=== PATIENT | male | born 1970 | race Caucasian/White ===

== ENCOUNTER 2022-03-04 18:41 | Emergency (ER) | payer MEDICAID, SELFPAY ==
[2022-03-04 18:44] VITALS: BMI 34.0
[2022-03-04 18:45] VITALS: BP 143/95; PULSE 110; RESP 16; TEMP 36.8; O2SAT 94; BMI 34.0
--- NOTE | 2022-03-04 18:48 | ECG_ITS ---
Test Reason : PALPITATION Blood Pressure : / mmHG Vent. Rate : 116 BPM Atrial Rate : 116 BPM P-R Int : 164 ms QRS Dur : 096 ms QT Int : 328 ms P-R-T Axes : 072 022 046 degrees QTc Int : 455 ms Sinus tachycardia Otherwise normal ECG When compared with ECG of 21-SEP-2017 07:24, Vent. rate has increased BY 47 BPM Referred By: Generic ED Physician Electronically Signed By:MALENA BOSE
== END 2022-03-04 20:25 | disposition left against medical advice (07) ==
PROVIDERS: Emergency Provider Emergency Medicine
DX: R00.2 Palpitations (principal); R20.2 Paresthesia of skin; F11.90 Opioid use, unspecified, uncomplicated; F14.10 Cocaine abuse, uncomplicated; F43.10 Post-traumatic stress disorder, unspecified; F32.A Depression, unspecified
CPT/HCPCS: 93005; 99281; 99283

== ENCOUNTER 2022-03-05 01:42 | Inpatient (IN) | payer OTHER, SELFPAY ==
--- NOTE | 2022-03-05 | ECG_ITS ---
Test Reason : medical clearance Blood Pressure : / mmHG Vent. Rate : 081 BPM Atrial Rate : 081 BPM P-R Int : 180 ms QRS Dur : 094 ms QT Int : 388 ms P-R-T Axes : 011 061 024 degrees QTc Int : 450 ms Normal sinus rhythm Normal ECG When compared with ECG of 04-MAR-2022 18:52, Heart rate has decreased Referred By: Floridalma Kenny Electronically Signed By:MALENA BOSE
--- NOTE | ~2022-03-05 | US_ITS ---
EXAMINATION: US ABDOMEN COMPLETE CLINICAL INFORMATION: Elevated LFTs. COMPARISON: None TECHNIQUE: Real-time imaging of the abdominal viscera. FINDINGS: PANCREAS: Not well visualized. ABDOMINAL AORTA: Not well visualized. INFERIOR VENA CAVA: Not well visualized. LIVER: Liver echotexture is slightly increased. The liver contour is normal. No focal hepatic lesion. There is no intrahepatic biliary duct dilatation seen. GALLBLADDER: There are gallstones in the gallbladder. The gallbladder is normal in size. The gallbladder wall is normal. There is no pericholecystic fluid. COMMON BILE DUCT: Normal in caliber measuring 0.3 cm in diameter. RIGHT KIDNEY: There is a small cyst in the midpole measuring 6 x 4 x 5 mm. No hydronephrosis. No renal calculi or focal parenchymal lesions. The kidney measures 11.3 cm in maximum dimension. LEFT KIDNEY: Normal. No hydronephrosis. No renal calculi or focal parenchymal lesions. The kidney measures 10.4 cm in maximum dimension. SPLEEN: Normal. The spleen measures 8.5 cm in maximum dimension. FREE FLUID: None. US/US abdomen complete IMPRESSION: Slightly echogenic liver probably representing fatty infiltration. Gallstones. No evidence of cholecystitis. Small right renal cyst. Limited visualization of the pancreas, aorta and IVC.
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
[2022-03-05 02:17] VITALS: BP 137/99; PULSE 108; RESP 18; TEMP 37; O2SAT 93; BMI 34.0
[2022-03-05 02:38] LABS: MANUAL DIFF FLAG NO
[2022-03-05 02:39] LABS: Basophils Absolute Auto 0.1 X10*3/uL (0.0-0.2); Basophils Percent Auto 0.4 % (0-2); Eosinophils Absolute Auto 0.2 X10*3/uL (0.0-0.4); Eosinophils Percent Auto 1.2 % (0-4); Hematocrit 44.4 % (42.0-52.0); Hemoglobin 15.2 g/dl (14.0-18.0); Imm Gran Abs Auto 0.07 X10*3/uL (0.00-0.03); Imm Gran Pct Auto 0.6 % (0.0-0.4); Lymphocytes Absolute Auto 3.9 X10*3/uL (1.2-4.9); Mean Corpuscular HGB Conc 34.2 g/dl (31.0-36.0); Mean Corpuscular Volume 81.9 fL (80.0-98.0); Mean Platelet Volume 11.2 fL (9.4-12.4); Monocytes Absolute Auto 1.1 X10*3/uL (0.1-1.2); Monocytes Percent Auto 8.6 % (2-11); Neutrophils Absolute Auto 7.4 x10*3/uL (2.0-8.3); Neutrophils Percent Auto 58.2 % (45-73); Platelet Count 275 X10*3/uL (160-400); Red Blood Count 5.42 X10*6/uL (4.60-5.80); Red Cell Distribution Width 14.3 % (11.0-16.0); White Blood Count 12.7 X10*3/uL (4.8-10.8)
[2022-03-05 02:54] LABS: COVID-19 Test Negative (Negative)
[2022-03-05 02:59] LABS: Alanine Aminotransferase 47 U/L (0-40); Alkaline Phosphatase 99 U/L (39-117); Anion Gap 18 (12-20); Aspartate Amino Transferase 137 U/L (5-37); Bilirubin Direct 0.5 mg/dL (0.0-0.5); Bilirubin Total 1.5 mg/dL (0.0-1.0); Blood Urea Nitrogen 24 mg/dL (9-16); Calcium 9.9 mg/dL (8.4-10.2); Carbon Dioxide 22 mmol/L (22-29); Chloride 105 mmol/L (96-108); Creatinine Clr Calc Pharmacy 68.7; Estimated Glomerular Filt Rate 48; Ethanol < 10 mg/dL; Glucose Random 116 mg/dL (60-115); Potassium 4.3 mmol/L (3.3-5.1); Sodium 141 mmol/L (135-145); Total Protein 8.4 g/dL (6.5-8.0)
--- NOTE | 2022-03-05 03:21 | PC.NURSE ---
ALLY[facility] referral completed/confirmed/pending eta, patient is section 12 by the provider, patient has lots of concerns about his medication, [facility] office called/spoke with Terrance from medical/faxed information release paper work/they faxed us patient's medication list, med rec completed/approved by provider, med list faxed to our pharmacy, patient is currently in chair resting quietly, will continue to monitor.
--- NOTE | 2022-03-05 07:23 | PHA.MEDREC ---
Pharmacy Consult ? Medication Reconciliation Pharmacy has REVIEWED the medication reconciliation done by Mitch. Pharmacy also received the list of medications from the patients facility.
[2022-03-05] MEDS: Omeprazole 20 MG CAPSULE.DR PO (09:17)
[2022-03-05] MEDS: DULoxetine HCl 30 MG CAPSULE.DR PO (09:17)
[2022-03-05] MEDS: Acetaminophen 325 MG TABLET 650 MG PO (14:41)
[2022-03-05 18:14] LABS: Appearance Urine Clear; Color Urine Yellow; Glucose Urine UA Negative (Negative); Leukocyte Esterase Urine Trace (Negative); Nitrite Urine Negative (Negative); Specific Gravity - Urine >= 1.030 (1.005-1.025); UMIC TRIGGER UA YES; Urine Blood Negative (Negative); Urine Ketones Trace mg/dL (Negative); Urine Protein 30 (1+) mg/dL (Neg-Trace)
[2022-03-05 18:31] LABS: Amphetamine Screen Urine Not Detected (Not Detect); Barbiturates, Urine Not Detected (Not Detect); Benzodiazepines Screen Urine Not Detected (Not Detect); Cannabinoid Screen Urine Not Detected (Not Detect); Cocaine Screen Urine Not Detected (Not Detect); Fentanyl, urine Not Detected (Not Detect); Opiate Screen Urine Not Detected (Not Detect); Phencyclidine Screen Urine Not Detected (Not Detect)
[2022-03-05 18:42] LABS: Bacteria Urine Trace (None Seen); Calcium Oxalate Crystals Urine Present; Hyaline Casts Urine 0-2 /LPF (0-2); RBC Urine 0-2 /HPF (0-2); WBC Urine 0-5 /HPF (0-5)
[2022-03-05] MEDS: DULoxetine HCl 60 MG CAPSULE.DR PO (20:32)
[2022-03-05] MEDS: Mirtazapine 15 MG TABLET 45 MG PO (20:32)
[2022-03-05] MEDS: Atorvastatin Calcium 20 MG TABLET PO (20:36)
[2022-03-05 22:50] VITALS: BP 132/91; PULSE 87; RESP 16; TEMP 36.3; O2SAT 94
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
[2022-03-06 06:00] VITALS: BP 140/70; PULSE 87; RESP 18; TEMP 35; O2SAT 95
[2022-03-06 09:09] LABS: Estimated Average Glucose 111 mg/dL; Hemoglobin A1c % 5.5 %
[2022-03-06 09:26] LABS: Alanine Aminotransferase 50 U/L (0-40); Alkaline Phosphatase 97 U/L (39-117); Anion Gap 16 (12-20); Aspartate Amino Transferase 109 U/L (5-37); Bilirubin Total 0.5 mg/dL (0.0-1.0); Blood Urea Nitrogen 17 mg/dL (9-16); Carbon Dioxide 22 mmol/L (22-29); Chloride 106 mmol/L (96-108); Cholesterol 147 mg/dL; Creatinine Clr Calc Pharmacy 97.3; Estimated Glomerular Filt Rate > 60; Glucose Fasting 117 mg/dL (60-99); HDL Cholesterol 28 mg/dL; LDL Cholesterol Calculated 76 mg/dl; Potassium 4.3 mmol/L (3.3-5.1); Sodium 140 mmol/L (135-145); Triglycerides 216 mg/dL
[2022-03-06 09:42] LABS: Free T4 (Free Thyroxine) 0.98 ng/dL (0.71-1.85); Thyroid Stimulating Hormone 1.23 uIU/mL (0.32-4.0)
[2022-03-06 10:02] LABS: Folate 18.9 ng/mL (> or = 4.0); Vitamin B12 334 pg/mL (200-900)
[2022-03-06] MEDS: lisinopriL 10 MG TABLET PO (10:04)
[2022-03-06] MEDS: DULoxetine HCl 30 MG CAPSULE.DR PO (10:04)
[2022-03-06] MEDS: Omeprazole 20 MG CAPSULE.DR PO (10:04)
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
[2022-03-06 20:30] VITALS: BP 132/81; PULSE 101; RESP 18; TEMP 36.3; O2SAT 95
[2022-03-06] MEDS: Atorvastatin Calcium 20 MG TABLET PO (20:32)
[2022-03-06] MEDS: traZODone HCL 50 MG TABLET PO (20:32)
[2022-03-06] MEDS: Mirtazapine 15 MG TABLET 45 MG PO (20:32)
[2022-03-07 09:00] VITALS: BP 130/75; PULSE 75; RESP 18; TEMP 36.4; O2SAT 95
[2022-03-07] MEDS: FLUoxetine HCl 20 MG CAPSULE PO (09:12)
[2022-03-07] MEDS: lisinopriL 10 MG TABLET PO (09:12)
[2022-03-07] MEDS: Omeprazole 20 MG CAPSULE.DR PO (09:12)
--- NOTE | 2022-03-07 15:43 | MHC.RECOVRN ---
Met with pt in 324 after consult placed to Addiction Medicine. Pt reports being released 2 days ago after being in senior living for 9 months. Prior to senior living, pt reports using heroin and cocaine, [place]. Pt reports approx 1.5-2 bundles heroin daily. Did use a few times while in senior living. Pt reports first use age [age]. Pt has been to [facility] x 3 as well as many psych admissions where detox was completed, as well. Pt denies hx Suboxone, has only utilized methadone while in [facility]. Pt acknowledges UDS negative at this time, states I really want to do the right thing out there. I want to be there for my kids and my grandkids. Pt reports opioid cravings and would like to initiate Suboxone while inpatient to avoiding returning to use. Discussed with Brigitte Walker APRN.
[2022-03-07 18:00] VITALS: BP 137/74; PULSE 90; RESP 18; TEMP 36.7; O2SAT 94
--- NOTE | 2022-03-07 18:03 | HO.PSYCHPN ---
Subjective Subjective Date of Service: 03/07/22 Reason For Visit: Depression suicidal ideation Interim History: I spoke with pt this evening. Pt is adamant that he wants to feel stable and continues to advocate for medication that will help curb urges to relapse, says I dont wanna go through this no more, does not want to return to his life of relapsing, ripping and running, incarceration. Says he has not noticed a difference on prozac, denies withdrawal from cymbalta. Pt is asking to re-trial wellbutrin, was on this in the past for depression and pt says he believes he has ADHD, wants something to help with this. He does not want to be on controlled substances. Also asking to be put back on gabapentin, reports past benefit for nerve pain. Denies issues with sleep. Denies SI, says he feels safe. Medication Compliance: Yes Side effects from medications: No Attending Groups: Yes Review of Systems Acute medical concerns: No Medical Review of Systems: unchanged Mental Status Exam Mental Status Exam Narrative: Patient Appearance: Well Grooomed Patient Orientation: Person, Place, Time and Situation Level of Consciousness: Awake and Appropriate Patient Behavior: Appropriate and Good Eye Contact Mood Description: Depressed Affect Description: Depressed Patient Cognition Impaired: No Ability to Follow Directions: Excellent Speech Pattern: Clear and Soft-Spoken Memory Description: Intact Hallucinations: None Delusions: Not Present Thought Process: Intact Thought Content: positive for Goal Oriented Depressive Symptoms: Increased Anxiety, Feelings of Worthlessness, Hopelessness, Feelings of Guilt, Low Self Esteem and Difficulty Concentrating Judgement: Good Diagnostics Vital Signs (24Hr): Vital Signs - 24 hr 03/06/22 20:30 03/07/22 09:00 Temperature 97.4 F 97.5 F Pulse Rate 101 H 75 Respiratory Rate 18 18 Blood Pressure 132/81 130/75 Pulse Oximetry 95 95 Oxygen Delivery Method Room Air Room Air BMI result Body Mass Index 34.0 Labs Results: 03/05/22 02:32 03/06/22 08:35 Labs: Laboratory Results - last 48 hr 03/05/22 03/05/22 03/06/22 18:03 18:03 08:35 Sodium 140 Potassium 4.3 Chloride 106 Carbon Dioxide 22 Anion Gap 16 BUN 17 H Creatinine 1.08 Estim Creat Clear Calc 97.3 Estimated GFR > 60 Fasting Glucose 117 H Estimat Average Glucose Hemoglobin A1c % Calcium 9.0 D Total Bilirubin 0.5 AST 109 H ALT 50 H Alkaline Phosphatase 97 Total Protein 7.0 Albumin 4.0 Triglycerides 216 Cholesterol 147 LDL Cholesterol, Calc 76 HDL Cholesterol 28 Vitamin B12 Folate TSH 1.23 Free T4 0.98 Urine Color Yellow Urine Appearance Clear Urine pH 6.0 Ur Specific [place] >= 1.030 H Urine Protein 30 (1+) H Urine Glucose (UA) Negative Urine Ketones Trace Urine Blood Negative Urine Nitrite Negative Ur Leukocyte Esterase Trace H Urine RBC 0-2 Urine WBC 0-5 Ur Squamous Epith Cells 3-5 Calcium Oxalate Crystal Present Urine Bacteria Trace Hyaline Casts 0-2 Urine Opiates Screen Not Detected Urine Fentanyl Screen Not Detected Ur Barbiturates Screen Not Detected Ur Phencyclidine Scrn Not Detected Ur Amphetamines Screen Not Detected U Benzodiazepines Scrn Not Detected Urine Cocaine Screen Not Detected U Marijuana (THC) Screen Not Detected 03/06/22 03/06/22 08:35 08:35 Sodium Potassium Chloride Carbon Dioxide Anion Gap BUN Creatinine Estim Creat Clear Calc Estimated GFR Fasting Glucose Estimat Average Glucose 111 Hemoglobin A1c % 5.5 Calcium Total Bilirubin AST ALT Alkaline Phosphatase Total Protein Albumin Triglycerides Cholesterol LDL Cholesterol, Calc HDL Cholesterol Vitamin B12 334 Folate 18.9 TSH Free T4 Urine Color Urine Appearance Urine pH Ur Specific [place] Urine Protein Urine Glucose (UA) Urine Ketones Urine Blood Urine Nitrite Ur Leukocyte Esterase Urine RBC Urine WBC Ur Squamous Epith Cells Calcium Oxalate Crystal Urine Bacteria Hyaline Casts Urine Opiates Screen Urine Fentanyl Screen Ur Barbiturates Screen Ur Phencyclidine Scrn Ur Amphetamines Screen U Benzodiazepines Scrn Urine Cocaine Screen U Marijuana (THC) Screen Medications Medications Current Medications Acetaminophen (Acetaminophen 325 Mg Tablet) 650 mg PO Q6H PRN PRN Reason: Headache/Pain Mild Scale (1-3) Al Hydroxide/Mg Hydroxide (Magnesium Hydrox/Alum Hydrox 30 Ml Oral.Susp) 30 ml PO Q6H PRN PRN Reason: Heartburn/Nausea Atorvastatin Calcium (Atorvastatin Calcium 20 Mg Tablet) 20 mg PO BEDTIME [facility] Last Admin: 03/06/22 20:32 Dose: 20 mg Docusate Sodium (Docusate Sodium 100 Mg Capsule) 100 mg PO BEDTIME [facility] Last Admin: 03/06/22 20:33 Dose: Not Given Fluoxetine HCl (Fluoxetine Hcl 20 Mg Capsule) 20 mg PO DAILY [facility] Last Admin: 03/07/22 09:12 Dose: 20 mg Hydroxyzine HCl (Hydroxyzine Hcl 25 Mg Tablet) 25 mg PO Q6H PRN PRN Reason: Anxiety Lisinopril (Lisinopril 10 Mg Tablet) 10 mg PO DAILY [facility]; Protocol Last Admin: 03/07/22 09:12 Dose: 10 mg Magnesium Hydroxide (Milk Of Magnesia 30 Ml Oral.Susp) 30 ml PO DAILY PRN PRN Reason: Constipation Mirtazapine (Mirtazapine 15 Mg Tablet) 45 mg PO BEDTIME [facility] Last Admin: 03/06/22 20:32 Dose: 45 mg Nicotine Polacrilex (Nicotine Polacrilex 2 Mg Gum) 2 mg BUCCAL Q2H PRN PRN Reason: Nicotine Cravings Omeprazole (Omeprazole 20 Mg Capsule.Dr) 20 mg PO DAILY [facility] Last Admin: 03/07/22 09:12 Dose: 20 mg Trazodone HCl (Trazodone Hcl 50 Mg Tablet) 50 mg PO BEDTIME PRN PRN Reason: Insomnia Last Admin: 03/06/22 20:32 Dose: 50 mg Allergies Allergies Allergy/AdvReac Type Severity Reaction Status Date / Time No Known Allergies Allergy Verified 03/05/22 02:17 [No Known Allergies*] Assessment & Plan Assessment & Plan (1) MDD (major depressive disorder), recurrent episode, moderate: Status: Acute Code(s): F33.1 - Major depressive disorder, recurrent, moderate (2) Post traumatic stress disorder (PTSD): Status: Acute Code(s): F43.10 - Post-traumatic stress disorder, unspecified (3) Cocaine use disorder: Status: Acute Code(s): F14.10 - Cocaine abuse, uncomplicated (4) Opioid use disorder: Status: Acute Code(s): F11.90 - Opioid use, unspecified, uncomplicated Plan Lavell is a 52-year-old male with a history of depression, cocaine use and trauma. Patient reports increased depression and suicidal ideation because he is unable to get his medications, misunderstandings with his children?s mother and lack of a prescriber. Patient had not taken medications in 2 days prior to coming to the hospital. He came out of skilled nursing 2 days ago where he had been for 1 years. Patient has a history of multiple psychiatric admissions and suicide attempts.? Plan: 03/06: placed Addiction consult, as pt is requesting to be started on suboxone due to hx of opiate abuse and active urges to use. Discontinue Cymbalta due to pt not liking the withdrawal effects when he was unable to obtain refills. Start Prozac 20 mg daily for sx of depression, anxiety, and trauma, as pt reports past benefit on this med. Continue mirtazapine 45 mg bedtime for sleep, anxiety, and depression 03/07: restart wellbutrin XL 150 mg QAM for depression, inattention, impulsivity. restart gabapentin at 100 mg TID PRN for nerve pain. I spent minutes with the patient and/or on the patient floor today, greater than?50% of which was spent counseling/coordinating care. Patient educated on: diagnosis, medication risk/benefits and therapeutic strategies Reason for contiued inpatient stay Substantial Risk for: med/psych decompensation
[2022-03-07] MEDS: Mirtazapine 15 MG TABLET 45 MG PO (20:58)
[2022-03-07] MEDS: Docusate Sodium 100 MG CAPSULE PO (20:58)
[2022-03-07] MEDS: Atorvastatin Calcium 20 MG TABLET PO (20:58)
[2022-03-07] MEDS: hydrOXYzine HCL 25 MG TABLET PO (21:00)
[2022-03-07] MEDS: traZODone HCL 50 MG TABLET PO (21:01)
[2022-03-08] MEDS: traZODone HCL 50 MG TABLET PO (01:15)
[2022-03-08] MEDS: FLUoxetine HCl 20 MG CAPSULE PO (09:32)
[2022-03-08] MEDS: Omeprazole 20 MG CAPSULE.DR PO (09:32)
[2022-03-08] MEDS: buPROPion HCl XL 150 MG TAB.ER.24H PO (09:32)
[2022-03-08] MEDS: lisinopriL 10 MG TABLET PO (09:32)
[2022-03-08 09:39] VITALS: BP 115/70; PULSE 100; RESP 16; TEMP 36.6; O2SAT 95
--- NOTE | 2022-03-08 14:02 | HO.ADDICT_ITS ---
History of Present Illness Date of Service: 03/08/2022 Chief Complaint: Depression suicidal ideation Reason for Consult: requesting to start MOUD Requesting physician: Lavinia Skinner HPI Narrative: Patient is a 52 year old male with history of LOU, including opioid use disorder, currently admitted to unit with worsening depression. Patient reports he was recently released (earlier this week) from incarceration and, while he has been abstinent from opioids for almost a year, is concerned about recurrence-therefore, consult requested. Patient seen on M3, pleasant and engaged in interview. Reporting that prior to incarceration he was using 1-2 bundles of heroin daily IN. Denies any history of outpatient treatment for OUD. Denies any treatment of MOUD. Has only been on methadone during ATS (detox) admission Reports history of alcohol use--mainly on the weekends, however, usually to excess. Reviewed treatments for OUD, including suboxone, methadone and naltrexone. Reviewed dosing, mechanism of action, possible side effects, and usual outpatient treatment programming. Patient asking appropriate questions. Expressed desire to trial suboxone. Forthcoming about concerns of recurrence and goals of maintaining sustained recovery. Past Psychiatric History: -Hx of multiple inpatient admissions, last 2018 at [facility] -Past med trials: seroquel (increased appetite), wellbutrin (doesnt remember), prozac (helpful, unable to recall why it was stopped) Review of Systems Constitutional: Reports as per HPI and Reports no additional constitutional complaints Diagnostics Vital Signs (24Hr): Vital Signs - 24 hr 03/07/22 18:00 03/08/22 09:39 Temperature 98.1 F 97.9 F Pulse Rate 90 100 Respiratory Rate 18 16 Blood Pressure 137/74 115/70 Pulse Oximetry 94 95 Oxygen Delivery Method Room Air Room Air BMI result Body Mass Index 34.0 Labs Results: 03/05/22 02:32 03/06/22 08:35 Mental Status Exam Mental Status Exam Patient Appearance: Well Grooomed and Appropriate Level of Consciousness: Awake and Appropriate Patient Behavior: Appropriate and Cooperative Mood Description: Calm Affect Description: Calm Patient Cognition Impaired: No Ability to Follow Directions: Excellent Speech Pattern: Clear Thought Process: Intact and Goal Oriented Judgement: Good Medications Medications Current Medications Acetaminophen (Acetaminophen 325 Mg Tablet) 650 mg PO Q6H PRN PRN Reason: Headache/Pain Mild Scale (1-3) Al Hydroxide/Mg Hydroxide (Magnesium Hydrox/Alum Hydrox 30 Ml Oral.Susp) 30 ml PO Q6H PRN PRN Reason: Heartburn/Nausea Atorvastatin Calcium (Atorvastatin Calcium 20 Mg Tablet) 20 mg PO BEDTIME [facility] Last Admin: 03/07/22 20:58 Dose: 20 mg Buprenorphine/Naloxone (Buprenorphine/Naloxone 2/0.5mg Film) 1 film SUBLINGUAL DAILY [facility] Last Admin: 03/08/22 12:16 Dose: Not Given Bupropion HCl (Bupropion Hcl Xl 150 Mg Tab.Er.24h) 150 mg PO DAILY [facility] Last Admin: 03/08/22 09:32 Dose: 150 mg Docusate Sodium (Docusate Sodium 100 Mg Capsule) 100 mg PO BEDTIME [facility] Last Admin: 03/07/22 20:58 Dose: 100 mg Fluoxetine HCl (Fluoxetine Hcl 20 Mg Capsule) 20 mg PO DAILY [facility] Last Admin: 03/08/22 09:32 Dose: 20 mg Gabapentin (Gabapentin 100 Mg Capsule) 100 mg PO TID PRN PRN Reason: nerve pain, anxiety Hydroxyzine HCl (Hydroxyzine Hcl 25 Mg Tablet) 25 mg PO Q6H PRN PRN Reason: Anxiety Last Admin: 03/07/22 21:00 Dose: 25 mg Lisinopril (Lisinopril 10 Mg Tablet) 10 mg PO DAILY [facility]; Protocol Last Admin: 03/08/22 09:32 Dose: 10 mg Magnesium Hydroxide (Milk Of Magnesia 30 Ml Oral.Susp) 30 ml PO DAILY PRN PRN Reason: Constipation Mirtazapine (Mirtazapine 15 Mg Tablet) 45 mg PO BEDTIME [facility] Last Admin: 03/07/22 20:58 Dose: 45 mg Nicotine Polacrilex (Nicotine Polacrilex 2 Mg Gum) 2 mg BUCCAL Q2H PRN PRN Reason: Nicotine Cravings Omeprazole (Omeprazole 20 Mg Capsule.Dr) 20 mg PO DAILY [facility] Last Admin: 03/08/22 09:32 Dose: 20 mg Trazodone HCl (Trazodone Hcl 50 Mg Tablet) 50 mg PO BEDTIME PRN PRN Reason: Insomnia Last Admin: 03/08/22 01:15 Dose: 50 mg Allergies Allergies Allergy/AdvReac Type Severity Reaction Status Date / Time No Known Allergies Allergy Verified 03/05/22 02:17 [No Known Allergies*] Assessment & Plan Assessment & Plan (1) Opioid use disorder: Status: Acute Code(s): F11.90 - Opioid use, unspecified, uncomplicated Assessment and Plan: * 2mg daily to start * case disussed with RN on BH unit and attending psychiatric provider * based on history HIV, Hepatitis panel * will continue to follow (2) MDD (major depressive disorder), recurrent episode, moderate: Status: Acute Code(s): F33.1 - Major depressive disorder, recurrent, moderate I spent ____45__ minutes with the patient and/or on the patient floor today, greater than?50% of which was spent counseling/coordinating care. PMF Past Medical History Medical History Cocaine abuse Depression PTSD (post-traumatic stress disorder) Social History Social History Household Members: Significant Other Housing: Apartment Do you presently have visiting nurse or other home services: No Patient Tobacco Use Status: Former Tobacco user Smoked in Last 30 Days: No Patient Interested in Nicotine Replacement: No Patient Given Instructions on How to Stop Smoking: No Use of substances other than those prescribed or required for medical reasons: No Currently Displaying Signs/Symptoms of Drug Intoxication Withdrawal: No Any prior treatment program specific to substance use: No Have you been hit, kicked, punched, or otherwise hurt by someone within the past year? If so, by whom?: No Do you feel safe in your current relationship?: Yes Is there a partner from a previous relationship who is making you feel unsafe now?: No Are you made to feel afraid or neglected: No Spiritual Healthcare Practices: None Orthodox Healthcare Practices: [facility] Cultural Healthcare Practices: None Advance Directives: No Advance Directives Information Provided: No Healthcare Proxy: No Guardian: No Do you have thoughts of harming others: None Do you have a plan to hurt others: No Plan Recently lost weight without trying: No Eating poorly because of decreased appetite: No Nutrition Risks: No Nutritional Risk Poor oral hygiene: No service: No Sexual orientation: Straight/Heterosexual
--- NOTE | 2022-03-08 16:19 | HO.PSYCHPN ---
Subjective Subjective Date of Service: 03/08/22 Reason For Visit: Depression suicidal ideation Subjective Notes: Conditional Voluntary Interim History: Pt reports after he was discharged from correction feeling very restless, anxious, hypervigilant at home. He currently denies SI/HI. He reports feeling calmer. He met with addition specialist and agrees to start suboxone as relapsed prevention. He reports restless sleep- asks for seroquel low dose as it has worked for him in the past. No behavioral concerns. Review of Systems Constitutional: Reports as per HPI and Reports no additional constitutional complaints Mental Status Exam Mental Status Exam Narrative: Patient Appearance: Well Grooomed Patient Orientation: Person, Place, Time and Situation Level of Consciousness: Awake and Appropriate Patient Behavior: Appropriate and Good Eye Contact Mood Description: Depressed Affect Description: Depressed Patient Cognition Impaired: No Ability to Follow Directions: Excellent Speech Pattern: Clear and Soft-Spoken Memory Description: Intact Hallucinations: None Delusions: Not Present Thought Process: Intact Thought Content: positive for Goal Oriented Depressive Symptoms: Increased Anxiety, Feelings of Worthlessness, Hopelessness, Feelings of Guilt, Low Self Esteem and Difficulty Concentrating Judgement: Good Patient Appearance: Well Grooomed and Appropriate Patient Orientation: Person, Place, Time and Situation Level of Consciousness: Awake and Appropriate Patient Behavior: Appropriate and Cooperative Mood Description: Calm Affect Description: Calm Patient Cognition Impaired: No Ability to Follow Directions: Excellent Speech Pattern: Clear Memory Description: Intact Diagnostics Vital Signs (24Hr): Vital Signs - 24 hr 03/08/22 20:05 03/09/22 09:15 Temperature 97.2 F 97.1 F Pulse Rate 86 82 Respiratory Rate 16 16 Blood Pressure 127/85 124/71 Pulse Oximetry 93 94 Oxygen Delivery Method Room Air Room Air BMI result Body Mass Index 34.7 Labs Results: 03/05/22 02:32 03/06/22 08:35 Medications Medications Current Medications Acetaminophen (Acetaminophen 325 Mg Tablet) 650 mg PO Q6H PRN PRN Reason: Headache/Pain Mild Scale (1-3) Al Hydroxide/Mg Hydroxide (Magnesium Hydrox/Alum Hydrox 30 Ml Oral.Susp) 30 ml PO Q6H PRN PRN Reason: Heartburn/Nausea Atorvastatin Calcium (Atorvastatin Calcium 20 Mg Tablet) 20 mg PO BEDTIME [facility] Last Admin: 03/08/22 20:08 Dose: 20 mg Buprenorphine/Naloxone (Buprenorphine/Naloxone 2/0.5mg Film) 1 film SUBLINGUAL DAILY [facility] Last Admin: 03/09/22 12:52 Dose: 1 film Bupropion HCl (Bupropion Hcl Xl 150 Mg Tab.Er.24h) 150 mg PO DAILY [facility] Last Admin: 03/09/22 09:12 Dose: 150 mg Docusate Sodium (Docusate Sodium 100 Mg Capsule) 100 mg PO BEDTIME [facility] Last Admin: 03/08/22 20:09 Dose: Not Given Fluoxetine HCl (Fluoxetine Hcl 20 Mg Capsule) 40 mg PO DAILY [facility] Last Admin: 03/09/22 09:12 Dose: 40 mg Gabapentin (Gabapentin 100 Mg Capsule) 100 mg PO TID PRN PRN Reason: nerve pain, anxiety Hydroxyzine HCl (Hydroxyzine Hcl 25 Mg Tablet) 25 mg PO Q6H PRN PRN Reason: Anxiety Last Admin: 03/07/22 21:00 Dose: 25 mg Lisinopril (Lisinopril 10 Mg Tablet) 10 mg PO DAILY [facility]; Protocol Last Admin: 03/09/22 09:12 Dose: 10 mg Magnesium Hydroxide (Milk Of Magnesia 30 Ml Oral.Susp) 30 ml PO DAILY PRN PRN Reason: Constipation Mirtazapine (Mirtazapine 30 Mg Tablet) 30 mg PO BEDTIME [facility] Last Admin: 03/08/22 20:09 Dose: 30 mg Nicotine Polacrilex (Nicotine Polacrilex 2 Mg Gum) 2 mg BUCCAL Q2H PRN PRN Reason: Nicotine Cravings Omeprazole (Omeprazole 20 Mg Capsule.Dr) 20 mg PO DAILY [facility] Last Admin: 03/09/22 09:12 Dose: 20 mg Quetiapine Fumarate (Quetiapine Fumarate 25 Mg Tablet) 25 mg PO Q6H PRN PRN Reason: anxiety/agitation/sleep Quetiapine Fumarate (Quetiapine Fumarate 50 Mg Tablet) 50 mg PO BEDTIME [facility] Allergies Allergies Allergy/AdvReac Type Severity Reaction Status Date / Time No Known Allergies Allergy Verified 03/05/22 02:17 [No Known Allergies*] Assessment & Plan Assessment & Plan (1) MDD (major depressive disorder), recurrent episode, moderate: Status: Acute Code(s): F33.1 - Major depressive disorder, recurrent, moderate (2) Opioid use disorder: Status: Acute Code(s): F11.90 - Opioid use, unspecified, uncomplicated Assessment and Plan: 2mg daily to start case disussed with RN on BH unit and attending psychiatric provider based on history HIV, Hepatitis panel will continue to follow Plan 03/09- decrease serotonergic agents- prozac, remeron (decrease), d/c trazodone. will continue wellbutrin. seroquel 25mg po qhs for sleep. I spent minutes with the patient and/or on the patient floor today, greater than?50% of which was spent counseling/coordinating care. Reason for contiued inpatient stay Substantial Risk for: inability to function
[2022-03-08] MEDS: Buprenorphine/Naloxone 2/0.5mg FILM 1 FILM SUBLINGUAL (16:21)
[2022-03-08 20:05] VITALS: BP 127/85; PULSE 86; RESP 16; TEMP 36.2; O2SAT 93
[2022-03-08] MEDS: Atorvastatin Calcium 20 MG TABLET PO (20:08)
[2022-03-08] MEDS: QUEtiapine Fumarate 25 MG TABLET PO (20:08)
[2022-03-08] MEDS: Mirtazapine 30 MG TABLET PO (20:09)
[2022-03-09 07:00] VITALS: BMI 34.7
[2022-03-09] MEDS: FLUoxetine HCl 20 MG CAPSULE 40 MG PO (09:12)
[2022-03-09] MEDS: Omeprazole 20 MG CAPSULE.DR PO (09:12)
[2022-03-09] MEDS: lisinopriL 10 MG TABLET PO (09:12)
[2022-03-09] MEDS: buPROPion HCl XL 150 MG TAB.ER.24H PO (09:12)
[2022-03-09 09:15] VITALS: BP 124/71; PULSE 82; RESP 16; TEMP 36.2; O2SAT 94
--- NOTE | 2022-03-09 11:40 | MHC.RECOVRN ---
T/W met w/ pt in room 324, pt alert to verbal stimuli. Pt reports took first dose of 2mg BUP yesterday, pt prefers to take med in the afternoon and is waiting to get dose today. Pt states interested in continuing care w/ Brigitte Walker, as pt reports will be in the [place] area. T/W will set up MAT Intake with Brigitte Walker in [facility] prior to patients discharge. Provider aware.
[2022-03-09] MEDS: Buprenorphine/Naloxone 2/0.5mg FILM 1 FILM SUBLINGUAL (12:52)
--- NOTE | 2022-03-09 14:22 | HO.PSYCHPN ---
Subjective Subjective Date of Service: 03/09/22 Reason For Visit: Depression suicidal ideation Subjective Notes: Conditional Voluntary Interim History: Pt reports mood is better in that is less depressed, no SI/HI. He reports restless sleep with seroquel- asks for increase to 50mg po qhs. He is future oriented, working on his recovery. No behavioral concerns. Medication Compliance: Yes Side effects from medications: No Attending Groups: Yes Review of Systems Constitutional: Reports as per HPI and Reports no additional constitutional complaints Mental Status Exam Mental Status Exam Narrative: Patient Appearance: Well Grooomed Patient Orientation: Person, Place, Time and Situation Level of Consciousness: Awake and Appropriate Patient Behavior: Appropriate and Good Eye Contact Mood Description: Depressed Affect Description: Depressed Patient Cognition Impaired: No Ability to Follow Directions: Excellent Speech Pattern: Clear and Soft-Spoken Memory Description: Intact Hallucinations: None Delusions: Not Present Thought Process: Intact Thought Content: positive for Goal Oriented Depressive Symptoms: Increased Anxiety, Feelings of Worthlessness, Hopelessness, Feelings of Guilt, Low Self Esteem and Difficulty Concentrating Judgement: Good Patient Appearance: Well Grooomed and Appropriate Patient Orientation: Person, Place, Time and Situation Level of Consciousness: Awake and Appropriate Patient Behavior: Appropriate and Cooperative Mood Description: Calm Affect Description: Calm Patient Cognition Impaired: No Ability to Follow Directions: Excellent Speech Pattern: Clear Memory Description: Intact Diagnostics Vital Signs (24Hr): Vital Signs - 24 hr 03/08/22 20:05 03/09/22 09:15 Temperature 97.2 F 97.1 F Pulse Rate 86 82 Respiratory Rate 16 16 Blood Pressure 127/85 124/71 Pulse Oximetry 93 94 Oxygen Delivery Method Room Air Room Air BMI result Body Mass Index 34.7 Labs Results: 03/05/22 02:32 03/06/22 08:35 Medications Medications Current Medications Acetaminophen (Acetaminophen 325 Mg Tablet) 650 mg PO Q6H PRN PRN Reason: Headache/Pain Mild Scale (1-3) Al Hydroxide/Mg Hydroxide (Magnesium Hydrox/Alum Hydrox 30 Ml Oral.Susp) 30 ml PO Q6H PRN PRN Reason: Heartburn/Nausea Atorvastatin Calcium (Atorvastatin Calcium 20 Mg Tablet) 20 mg PO BEDTIME [facility] Last Admin: 03/08/22 20:08 Dose: 20 mg Buprenorphine/Naloxone (Buprenorphine/Naloxone 2/0.5mg Film) 1 film SUBLINGUAL DAILY [facility] Last Admin: 03/09/22 12:52 Dose: 1 film Bupropion HCl (Bupropion Hcl Xl 150 Mg Tab.Er.24h) 150 mg PO DAILY [facility] Last Admin: 03/09/22 09:12 Dose: 150 mg Docusate Sodium (Docusate Sodium 100 Mg Capsule) 100 mg PO BEDTIME [facility] Last Admin: 03/08/22 20:09 Dose: Not Given Fluoxetine HCl (Fluoxetine Hcl 20 Mg Capsule) 40 mg PO DAILY [facility] Last Admin: 03/09/22 09:12 Dose: 40 mg Gabapentin (Gabapentin 100 Mg Capsule) 100 mg PO TID PRN PRN Reason: nerve pain, anxiety Hydroxyzine HCl (Hydroxyzine Hcl 25 Mg Tablet) 25 mg PO Q6H PRN PRN Reason: Anxiety Last Admin: 03/07/22 21:00 Dose: 25 mg Lisinopril (Lisinopril 10 Mg Tablet) 10 mg PO DAILY [facility]; Protocol Last Admin: 03/09/22 09:12 Dose: 10 mg Magnesium Hydroxide (Milk Of Magnesia 30 Ml Oral.Susp) 30 ml PO DAILY PRN PRN Reason: Constipation Mirtazapine (Mirtazapine 30 Mg Tablet) 30 mg PO BEDTIME [facility] Last Admin: 03/08/22 20:09 Dose: 30 mg Nicotine Polacrilex (Nicotine Polacrilex 2 Mg Gum) 2 mg BUCCAL Q2H PRN PRN Reason: Nicotine Cravings Omeprazole (Omeprazole 20 Mg Capsule.Dr) 20 mg PO DAILY [facility] Last Admin: 03/09/22 09:12 Dose: 20 mg Quetiapine Fumarate (Quetiapine Fumarate 25 Mg Tablet) 25 mg PO Q6H PRN PRN Reason: anxiety/agitation/sleep Quetiapine Fumarate (Quetiapine Fumarate 50 Mg Tablet) 50 mg PO BEDTIME [facility] Allergies Allergies Allergy/AdvReac Type Severity Reaction Status Date / Time No Known Allergies Allergy Verified 03/05/22 02:17 [No Known Allergies*] Assessment & Plan Assessment & Plan (1) MDD (major depressive disorder), recurrent episode, moderate: Status: Acute Code(s): F33.1 - Major depressive disorder, recurrent, moderate (2) Opioid use disorder: Status: Acute Code(s): F11.90 - Opioid use, unspecified, uncomplicated Assessment and Plan: 2mg daily to start case disussed with RN on unit and attending psychiatric provider based on history HIV, Hepatitis panel will continue to follow Plan 03/09- decrease serotonergic agents- prozac, remeron (decrease), d/c trazodone. will continue wellbutrin. seroquel 25mg po qhs for sleep. 03/10 increase seroquel to 50mg op qhs. I spent minutes with the patient and/or on the patient floor today, greater than?50% of which was spent counseling/coordinating care. Reason for contiued inpatient stay Substantial Risk for: harm to self
[2022-03-09 21:20] VITALS: BP 134/78; PULSE 106; RESP 16; TEMP 36.4; O2SAT 93
[2022-03-09] MEDS: QUEtiapine Fumarate 50 MG TABLET PO (21:24)
[2022-03-09] MEDS: Mirtazapine 30 MG TABLET PO (21:24)
[2022-03-09] MEDS: Atorvastatin Calcium 20 MG TABLET PO (21:24)
[2022-03-09] MEDS: hydrOXYzine HCL 25 MG TABLET PO (21:24)
[2022-03-10] MEDS: buPROPion HCl XL 150 MG TAB.ER.24H PO (09:06)
[2022-03-10] MEDS: Omeprazole 20 MG CAPSULE.DR PO (09:06)
[2022-03-10] MEDS: FLUoxetine HCl 20 MG CAPSULE 40 MG PO (09:06)
[2022-03-10] MEDS: lisinopriL 10 MG TABLET PO (09:06)
--- NOTE | 2022-03-10 13:13 | P.PNPSI_ITS ---
Subjective Subjective Date of Service: 03/10/22 Reason For Visit: Depression suicidal ideation Subjective Notes: Conditional Voluntary Interim History: Pt reports not sleeping well last night, restless with increase of seroquel. We discussed d/c seroquel, scheduling gabapentin. continue remeron for sleep but he is on high dose in addition to prozac. He denies SI/HI. he reports his mood is better. He wants to reconnect with psych providers and continue substance use treatment. Medication Compliance: Yes Side effects from medications: No Attending Groups: Intermittent Review of Systems Constitutional: Reports as per HPI and Reports no additional constitutional complaints Mental Status Exam Mental Status Exam Narrative: Patient Appearance: Well Grooomed Patient Orientation: Person, Place, Time and Situation Level of Consciousness: Awake and Appropriate Patient Behavior: Appropriate and Good Eye Contact Mood Description: Depressed Affect Description: Depressed Patient Cognition Impaired: No Ability to Follow Directions: Excellent Speech Pattern: Clear and Soft-Spoken Memory Description: Intact Hallucinations: None Delusions: Not Present Thought Process: Intact Thought Content: positive for Goal Oriented Depressive Symptoms: Increased Anxiety, Feelings of Worthlessness, Hopelessness, Feelings of Guilt, Low Self Esteem and Difficulty Concentrating Judgement: Good Patient Appearance: Well Grooomed and Appropriate Patient Orientation: Person, Place, Time and Situation Level of Consciousness: Awake and Appropriate Patient Behavior: Appropriate and Cooperative Mood Description: Calm Affect Description: Calm Patient Cognition Impaired: No Ability to Follow Directions: Excellent Speech Pattern: Clear Memory Description: Intact Diagnostics Vital Signs (24Hr): Vital Signs - 24 hr 03/09/22 21:20 Temperature 97.6 F Pulse Rate 106 H Respiratory Rate 16 Blood Pressure 134/78 Pulse Oximetry 93 Oxygen Delivery Method Room Air BMI result Body Mass Index 34.7 Labs Results: 03/05/22 02:32 03/06/22 08:35 Medications Medications Current Medications Acetaminophen (Acetaminophen 325 Mg Tablet) 650 mg PO Q6H PRN PRN Reason: Headache/Pain Mild Scale (1-3) Al Hydroxide/Mg Hydroxide (Magnesium Hydrox/Alum Hydrox 30 Ml Oral.Susp) 30 ml PO Q6H PRN PRN Reason: Heartburn/Nausea Atorvastatin Calcium (Atorvastatin Calcium 20 Mg Tablet) 20 mg PO BEDTIME [facility] Last Admin: 03/09/22 21:24 Dose: 20 mg Buprenorphine/Naloxone (Buprenorphine/Naloxone 2/0.5mg Film) 1 film SUBLINGUAL DAILY [facility] Last Admin: 03/09/22 12:52 Dose: 1 film Bupropion HCl (Bupropion Hcl Xl 150 Mg Tab.Er.24h) 150 mg PO DAILY [facility] Last Admin: 03/10/22 09:06 Dose: 150 mg Docusate Sodium (Docusate Sodium 100 Mg Capsule) 100 mg PO BEDTIME [facility] Last Admin: 03/09/22 21:24 Dose: Not Given Fluoxetine HCl (Fluoxetine Hcl 20 Mg Capsule) 40 mg PO DAILY [facility] Last Admin: 03/10/22 09:06 Dose: 40 mg Gabapentin (Gabapentin 300 Mg Capsule) 300 mg PO TID [facility] Hydroxyzine HCl (Hydroxyzine Hcl 25 Mg Tablet) 25 mg PO Q6H PRN PRN Reason: Anxiety Last Admin: 03/09/22 21:24 Dose: 25 mg Lisinopril (Lisinopril 10 Mg Tablet) 10 mg PO DAILY [facility]; Protocol Last Admin: 03/10/22 09:06 Dose: 10 mg Magnesium Hydroxide (Milk Of Magnesia 30 Ml Oral.Susp) 30 ml PO DAILY PRN PRN Reason: Constipation Mirtazapine (Mirtazapine 15 Mg Tablet) 45 mg PO BEDTIME [facility] Nicotine Polacrilex (Nicotine Polacrilex 2 Mg Gum) 2 mg BUCCAL Q2H PRN PRN Reason: Nicotine Cravings Omeprazole (Omeprazole 20 Mg Capsule.Dr) 20 mg PO DAILY [facility] Last Admin: 03/10/22 09:06 Dose: 20 mg Quetiapine Fumarate (Quetiapine Fumarate 25 Mg Tablet) 25 mg PO Q6H PRN PRN Reason: anxiety/agitation/sleep Quetiapine Fumarate (Quetiapine Fumarate 50 Mg Tablet) 50 mg PO BEDTIME [facility] Last Admin: 03/09/22 21:24 Dose: 50 mg Allergies Allergies Allergy/AdvReac Type Severity Reaction Status Date / Time No Known Allergies Allergy Verified 03/05/22 02:17 [No Known Allergies*] Assessment & Plan Assessment & Plan (1) MDD (major depressive disorder), recurrent episode, moderate: Status: Acute Code(s): F33.1 - Major depressive disorder, recurrent, moderate (2) Opioid use disorder: Status: Acute Code(s): F11.90 - Opioid use, unspecified, uncomplicated Assessment and Plan: * 2mg daily to start * case disussed with RN on unit and attending psychiatric provider * based on history HIV, Hepatitis panel * will continue to follow Plan 03/08- decrease serotonergic agents- prozac, remeron (decrease), d/c trazodone. will continue wellbutrin. seroquel 25mg po qhs for sleep. 03/09 increase seroquel to 50mg op qhs. 03/10 d/c seroquel- restlessness, scheduled gabapentin 300mg po tid, continue remeron 45mg po qhs, prozac 40mg po daily. we discussed some concern about having 2 antidepressant serotonergic agents. I spent minutes with the patient and/or on the patient floor today, greater than?50% of which was spent counseling/coordinating care. Reason for contiued inpatient stay Substantial Risk for: inability to function
[2022-03-10] MEDS: Buprenorphine/Naloxone 2/0.5mg FILM 1 FILM SUBLINGUAL (15:27)
[2022-03-10] MEDS: Gabapentin 300 MG CAPSULE PO ×2 (15:42→20:29)
[2022-03-10] MEDS: Acetaminophen 325 MG TABLET 650 MG PO (15:42)
[2022-03-10 18:00] VITALS: BP 141/69; PULSE 99; RESP 18; TEMP 36.6; O2SAT 96
[2022-03-10] MEDS: Mirtazapine 15 MG TABLET 45 MG PO (20:29)
[2022-03-10] MEDS: QUEtiapine Fumarate 50 MG TABLET PO (20:29)
[2022-03-10] MEDS: Atorvastatin Calcium 20 MG TABLET PO (20:29)
[2022-03-11] MEDS: QUEtiapine Fumarate 25 MG TABLET PO (03:03)
[2022-03-11] MEDS: hydrOXYzine HCL 25 MG TABLET PO (03:03)
--- NOTE | 2022-03-11 08:53 | P.PNPSI_ITS ---
Subjective Subjective Date of Service: 03/11/22 Reason For Visit: Depression suicidal ideation Subjective Notes: Conditional Voluntary Healthcare Proxy: No Guardianship: No Medical Problems Affecting Mental Status: No Interim History: Patient was seen and discussed in rounds today. Records and plans were reviewed. He had to sleep in the sensory room because of his roommate snoring a lot. He has been somewhat isolative. He is compliant with his medications. He is engaged. No auditory or visual hallucinations. Mild anxiety and depression present. No complaints or side effects. No changes were made Medication Compliance: Yes Attending Groups: Yes Review of Systems Acute medical concerns: No Review of Systems Constitutional: Reports as per HPI and Reports no additional constitutional complaints Mental Status Exam Mental Status Exam Narrative: In today's visit he is alert, oriented and pleasant. Normal speech. Good eye contact. Affect is appropriate and subdued. No auditory or visual hallucinations. No SI. Mild anxiety reported. Cognitively intact. Judgment is intact Diagnostics Vital Signs (24Hr): Vital Signs - 24 hr 03/10/22 18:00 Temperature 97.9 F Pulse Rate 99 Respiratory Rate 18 Blood Pressure 141/69 H Pulse Oximetry 96 Oxygen Delivery Method Room Air BMI result Body Mass Index 34.7 Labs Results: 03/05/22 02:32 03/06/22 08:35 Medications Medications Current Medications Acetaminophen (Acetaminophen 325 Mg Tablet) 650 mg PO Q6H PRN PRN Reason: Headache/Pain Mild Scale (1-3) Last Admin: 03/10/22 15:42 Dose: 650 mg Al Hydroxide/Mg Hydroxide (Magnesium Hydrox/Alum Hydrox 30 Ml Oral.Susp) 30 ml PO Q6H PRN PRN Reason: Heartburn/Nausea Atorvastatin Calcium (Atorvastatin Calcium 20 Mg Tablet) 20 mg PO BEDTIME [facility] Last Admin: 03/10/22 20:29 Dose: 20 mg Buprenorphine/Naloxone (Buprenorphine/Naloxone 2/0.5mg Film) 1 film SUBLINGUAL DAILY [facility] Last Admin: 03/10/22 15:27 Dose: 1 film Bupropion HCl (Bupropion Hcl Xl 150 Mg Tab.Er.24h) 150 mg PO DAILY [facility] Last Admin: 03/10/22 09:06 Dose: 150 mg Docusate Sodium (Docusate Sodium 100 Mg Capsule) 100 mg PO BEDTIME [facility] Last Admin: 03/10/22 20:31 Dose: Not Given Fluoxetine HCl (Fluoxetine Hcl 20 Mg Capsule) 40 mg PO DAILY [facility] Last Admin: 03/10/22 09:06 Dose: 40 mg Gabapentin (Gabapentin 300 Mg Capsule) 300 mg PO TID [facility] Last Admin: 03/10/22 20:29 Dose: 300 mg Hydroxyzine HCl (Hydroxyzine Hcl 25 Mg Tablet) 25 mg PO Q6H PRN PRN Reason: Anxiety Last Admin: 03/11/22 03:03 Dose: 25 mg Lisinopril (Lisinopril 10 Mg Tablet) 10 mg PO DAILY [facility]; Protocol Last Admin: 03/10/22 09:06 Dose: 10 mg Magnesium Hydroxide (Milk Of Magnesia 30 Ml Oral.Susp) 30 ml PO DAILY PRN PRN Reason: Constipation Mirtazapine (Mirtazapine 15 Mg Tablet) 45 mg PO BEDTIME [facility] Last Admin: 03/10/22 20:29 Dose: 45 mg Nicotine Polacrilex (Nicotine Polacrilex 2 Mg Gum) 2 mg BUCCAL Q2H PRN PRN Reason: Nicotine Cravings Omeprazole (Omeprazole 20 Mg Capsule.Dr) 20 mg PO DAILY [facility] Last Admin: 03/10/22 09:06 Dose: 20 mg Quetiapine Fumarate (Quetiapine Fumarate 25 Mg Tablet) 25 mg PO Q6H PRN PRN Reason: anxiety/agitation/sleep Last Admin: 03/11/22 03:03 Dose: 25 mg Quetiapine Fumarate (Quetiapine Fumarate 50 Mg Tablet) 50 mg PO BEDTIME [facility] Last Admin: 03/10/22 20:29 Dose: 50 mg Allergies Allergies Allergy/AdvReac Type Severity Reaction Status Date / Time No Known Allergies Allergy Verified 03/05/22 02:17 [No Known Allergies*] Assessment & Plan Assessment & Plan (1) MDD (major depressive disorder), recurrent episode, moderate: Status: Acute Code(s): F33.1 - Major depressive disorder, recurrent, moderate (2) Opioid use disorder: Status: Acute Code(s): F11.90 - Opioid use, unspecified, uncomplicated Assessment and Plan: * 2mg daily to start * case disussed with RN on unit and attending psychiatric provider * based on history HIV, Hepatitis panel * will continue to follow Plan 03/08- decrease serotonergic agents- prozac, remeron (decrease), d/c trazodone. w ill continue wellbutrin. seroquel 25mg po qhs for sleep. 9/22 increase seroquel to 50mg op qhs. 03/10 d/c seroquel- restlessness, scheduled gabapentin 300mg po tid, continue remeron 45mg po qhs, prozac 40mg po daily. we discussed some concern about having 2 antidepressant serotonergic agents. 03/11: Continue current regimen and plans. I spent minutes with the patient and/or on the patient floor today, greater than?50% of which was spent counseling/coordinating care. Reason for contiued inpatient stay Substantial Risk for: med/psych decompensation
[2022-03-11 09:56] VITALS: BP 119/74; PULSE 96; RESP 18; TEMP 36.7; O2SAT 95
[2022-03-11] MEDS: lisinopriL 10 MG TABLET PO (09:58)
[2022-03-11] MEDS: Gabapentin 300 MG CAPSULE PO ×3 (09:58→21:19)
[2022-03-11] MEDS: buPROPion HCl XL 150 MG TAB.ER.24H PO (09:58)
[2022-03-11] MEDS: Omeprazole 20 MG CAPSULE.DR PO (09:59)
[2022-03-11] MEDS: FLUoxetine HCl 20 MG CAPSULE 40 MG PO (09:59)
--- NOTE | 2022-03-11 14:32 | PC.NURSE ---
Pt reported dark brown stool with bright red and dark red blood. Stool was witnessed by staff member. Pt said last time this happened was 6-7 years ago but went away on its own. Pt stated his father and paternal grandfather both had colon cancer. Pt denies any pain. Pt hasn't had a colonoscopy but would like to have one either while he's here or after he's discharged. Pt is also complaining of urinating frequently but being unable to empty his bladder fully. Dr. Whittaker aware, recommends GI consult.
[2022-03-11] MEDS: Buprenorphine/Naloxone 2/0.5mg FILM 1 FILM SUBLINGUAL (16:02)
[2022-03-11 18:00] VITALS: BP 125/67; PULSE 85; RESP 16; TEMP 36.6; O2SAT 95
[2022-03-11] MEDS: Docusate Sodium 100 MG CAPSULE PO (21:19)
[2022-03-11] MEDS: QUEtiapine Fumarate 50 MG TABLET PO (21:20)
[2022-03-11] MEDS: Mirtazapine 15 MG TABLET 45 MG PO (21:20)
[2022-03-11] MEDS: Atorvastatin Calcium 20 MG TABLET PO (21:20)
[2022-03-12] MEDS: hydrOXYzine HCL 25 MG TABLET PO (05:43)
[2022-03-12] MEDS: QUEtiapine Fumarate 25 MG TABLET PO (05:43)
--- NOTE | 2022-03-12 09:19 | HO.PSYCHPN ---
Subjective Subjective Date of Service: 03/12/22 Reason For Visit: Depression suicidal ideation Subjective Notes: Conditional Voluntary Healthcare Proxy: No Guardianship: No Medical Problems Affecting Mental Status: No Interim History: Patient was seen and discussed in rounds today. Records and plans were reviewed. He continues to be mostly isolative and in his room with a lot of preoccupations and anxiety about his current stressors. He states that he is having a lot trouble going to sleep until 2 or 03:00. I reviewed his medication regimen and will increase his Seroquel at bedtime from 50 mg to 150 mg. He denies any side effects. Eating adequately. No SI. No hallucinations. Medication Compliance: Yes Attending Groups: Yes Review of Systems Acute medical concerns: No Review of Systems Review of Systems Sleep issues Yes all other systems are reviewed and are negative Mental Status Exam Mental Status Exam Narrative: In today's visit he is alert, oriented and pleasant. Normal speech. Good eye contact. Affect is appropriate and subdued. No auditory or visual hallucinations. No SI. Mild anxiety reported. Cognitively intact. Judgment is intact Diagnostics Vital Signs (24Hr): Vital Signs - 24 hr 03/11/22 09:56 03/11/22 18:00 Temperature 98.1 F 98 F Pulse Rate 96 85 Respiratory Rate 18 16 Blood Pressure 119/74 125/67 Pulse Oximetry 95 95 Oxygen Delivery Method Room Air Room Air BMI result Body Mass Index 34.7 Labs Results: 03/05/22 02:32 03/06/22 08:35 Medications Medications Current Medications Acetaminophen (Acetaminophen 325 Mg Tablet) 650 mg PO Q6H PRN PRN Reason: Headache/Pain Mild Scale (1-3) Last Admin: 03/10/22 15:42 Dose: 650 mg Al Hydroxide/Mg Hydroxide (Magnesium Hydrox/Alum Hydrox 30 Ml Oral.Susp) 30 ml PO Q6H PRN PRN Reason: Heartburn/Nausea Atorvastatin Calcium (Atorvastatin Calcium 20 Mg Tablet) 20 mg PO BEDTIME [facility] Last Admin: 03/11/22 21:20 Dose: 20 mg Buprenorphine/Naloxone (Buprenorphine/Naloxone 2/0.5mg Film) 1 film SUBLINGUAL DAILY [facility] Last Admin: 03/11/22 16:02 Dose: 1 film Bupropion HCl (Bupropion Hcl Xl 150 Mg Tab.Er.24h) 150 mg PO DAILY [facility] Last Admin: 03/11/22 09:58 Dose: 150 mg Docusate Sodium (Docusate Sodium 100 Mg Capsule) 100 mg PO BEDTIME [facility] Last Admin: 03/11/22 21:19 Dose: 100 mg Fluoxetine HCl (Fluoxetine Hcl 20 Mg Capsule) 40 mg PO DAILY [facility] Last Admin: 03/11/22 09:59 Dose: 40 mg Gabapentin (Gabapentin 300 Mg Capsule) 300 mg PO TID [facility] Last Admin: 03/11/22 21:19 Dose: 300 mg Hydroxyzine HCl (Hydroxyzine Hcl 25 Mg Tablet) 25 mg PO Q6H PRN PRN Reason: Anxiety Last Admin: 03/12/22 05:43 Dose: 25 mg Lisinopril (Lisinopril 10 Mg Tablet) 10 mg PO DAILY [facility]; Protocol Last Admin: 03/11/22 09:58 Dose: 10 mg Magnesium Hydroxide (Milk Of Magnesia 30 Ml Oral.Susp) 30 ml PO DAILY PRN PRN Reason: Constipation Mirtazapine (Mirtazapine 15 Mg Tablet) 45 mg PO BEDTIME [facility] Last Admin: 03/11/22 21:20 Dose: 45 mg Nicotine Polacrilex (Nicotine Polacrilex 2 Mg Gum) 2 mg BUCCAL Q2H PRN PRN Reason: Nicotine Cravings Omeprazole (Omeprazole 20 Mg Capsule.Dr) 20 mg PO DAILY [facility] Last Admin: 03/11/22 09:59 Dose: 20 mg Quetiapine Fumarate (Quetiapine Fumarate 25 Mg Tablet) 25 mg PO Q6H PRN PRN Reason: anxiety/agitation/sleep Last Admin: 03/12/22 05:43 Dose: 25 mg Quetiapine Fumarate (Quetiapine Fumarate 50 Mg Tablet) 50 mg PO BEDTIME [facility] Last Admin: 03/11/22 21:20 Dose: 50 mg Allergies Allergies Allergy/AdvReac Type Severity Reaction Status Date / Time No Known Allergies Allergy Verified 03/05/22 02:17 [No Known Allergies*] Assessment & Plan Assessment & Plan (1) MDD (major depressive disorder), recurrent episode, moderate: Status: Acute Code(s): F33.1 - Major depressive disorder, recurrent, moderate (2) Opioid use disorder: Status: Acute Code(s): F11.90 - Opioid use, unspecified, uncomplicated Assessment and Plan: 2mg daily to start case disussed with RN on unit and attending psychiatric provider based on history HIV, Hepatitis panel will continue to follow Plan 03/08- decrease serotonergic agents- prozac, remeron (decrease), d/c trazodone. will continue wellbutrin. seroquel 25mg po qhs for sleep. 03/09 increase seroquel to 50mg op qhs. 03/10 d/c seroquel- restlessness, scheduled gabapentin 300mg po tid, continue remeron 45mg po qhs, prozac 40mg po daily. we discussed some concern about having 2 antidepressant serotonergic agents. 03/11: Continue current regimen and plans. 03/12: Continue current regimen and plans. Increase bedtime Seroquel to 150 mg I spent minutes with the patient and/or on the patient floor today, greater than?50% of which was spent counseling/coordinating care. Patient educated on: medication risk/benefits Reason for contiued inpatient stay Substantial Risk for: med/psych decompensation
--- NOTE | 2022-03-12 10:06 | P.PNPSI_ITS ---
Subjective Subjective Date of Service: 03/12/22 Reason For Visit: Depression suicidal ideation Subjective Notes: Conditional Voluntary Healthcare Proxy: No Guardianship: No Medical Problems Affecting Mental Status: No Interim History: Patient was seen and discussed in rounds today. Records and plans were reviewed. He has been quite isolative but pleasant and cooperative. He had bloody stool yesterday both dark and bright red. A GI consult has been put in. He does have family history of colon cancer. He has been med compliant. No complaints or side effects. No SI. No signs of psychosis. No changes were made today Medication Compliance: Yes Attending Groups: Yes Review of Systems Acute medical concerns: No Review of Systems Review of Systems Bloody stool Yes all other systems are reviewed and are negative Mental Status Exam Mental Status Exam Narrative: In today's visit he is alert, oriented and pleasant. Normal speech. Good eye contact. Affect is appropriate and subdued. No auditory or visual hallucinations. No SI. Mild anxiety reported. Cognitively intact. Judgment is intact Diagnostics Vital Signs (24Hr): Vital Signs - 24 hr 03/11/22 18:00 Temperature 98 F Pulse Rate 85 Respiratory Rate 16 Blood Pressure 125/67 Pulse Oximetry 95 Oxygen Delivery Method Room Air BMI result Body Mass Index 34.7 Labs Results: 03/05/22 02:32 03/06/22 08:35 Medications Medications Current Medications Acetaminophen (Acetaminophen 325 Mg Tablet) 650 mg PO Q6H PRN PRN Reason: Headache/Pain Mild Scale (1-3) Last Admin: 03/10/22 15:42 Dose: 650 mg Al Hydroxide/Mg Hydroxide (Magnesium Hydrox/Alum Hydrox 30 Ml Oral.Susp) 30 ml PO Q6H PRN PRN Reason: Heartburn/Nausea Atorvastatin Calcium (Atorvastatin Calcium 20 Mg Tablet) 20 mg PO BEDTIME [facility] Last Admin: 03/11/22 21:20 Dose: 20 mg Buprenorphine/Naloxone (Buprenorphine/Naloxone 2/0.5mg Film) 1 film SUBLINGUAL DAILY [facility] Last Admin: 03/11/22 16:02 Dose: 1 film Bupropion HCl (Bupropion Hcl Xl 150 Mg Tab.Er.24h) 150 mg PO DAILY [facility] Last Admin: 03/11/22 09:58 Dose: 150 mg Docusate Sodium (Docusate Sodium 100 Mg Capsule) 100 mg PO BEDTIME [facility] Last Admin: 03/11/22 21:19 Dose: 100 mg Fluoxetine HCl (Fluoxetine Hcl 20 Mg Capsule) 40 mg PO DAILY [facility] Last Admin: 03/11/22 09:59 Dose: 40 mg Gabapentin (Gabapentin 300 Mg Capsule) 300 mg PO TID [facility] Last Admin: 03/11/22 21:19 Dose: 300 mg Hydroxyzine HCl (Hydroxyzine Hcl 25 Mg Tablet) 25 mg PO Q6H PRN PRN Reason: Anxiety Last Admin: 03/12/22 05:43 Dose: 25 mg Lisinopril (Lisinopril 10 Mg Tablet) 10 mg PO DAILY [facility]; Protocol Last Admin: 03/11/22 09:58 Dose: 10 mg Magnesium Hydroxide (Milk Of Magnesia 30 Ml Oral.Susp) 30 ml PO DAILY PRN PRN Reason: Constipation Mirtazapine (Mirtazapine 15 Mg Tablet) 45 mg PO BEDTIME [facility] Last Admin: 03/11/22 21:20 Dose: 45 mg Nicotine Polacrilex (Nicotine Polacrilex 2 Mg Gum) 2 mg BUCCAL Q2H PRN PRN Reason: Nicotine Cravings Omeprazole (Omeprazole 20 Mg Capsule.Dr) 20 mg PO DAILY [facility] Last Admin: 03/11/22 09:59 Dose: 20 mg Quetiapine Fumarate (Quetiapine Fumarate 25 Mg Tablet) 25 mg PO Q6H PRN PRN Reason: anxiety/agitation/sleep Last Admin: 03/12/22 05:43 Dose: 25 mg Quetiapine Fumarate (Quetiapine Fumarate 50 Mg Tablet) 50 mg PO BEDTIME [facility] Allergies Allergies Allergy/AdvReac Type Severity Reaction Status Date / Time No Known Allergies Allergy Verified 03/05/22 02:17 [No Known Allergies*] Assessment & Plan Assessment & Plan (1) MDD (major depressive disorder), recurrent episode, moderate: Status: Acute Code(s): F33.1 - Major depressive disorder, recurrent, moderate (2) Opioid use disorder: Status: Acute Code(s): F11.90 - Opioid use, unspecified, uncomplicated Assessment and Plan: * 2mg daily to start * case disussed with RN on unit and attending psychiatric provider * based on history HIV, Hepatitis panel * will continue to follow Plan 03/08- decrease serotonergic agents- prozac, remeron (decrease), d/c trazodone. will continue wellbutrin. seroquel 25mg po qhs for sleep. 03/09 increase seroquel to 50mg op qhs. 03/10 d/c seroquel- restlessness, scheduled gabapentin 300mg po tid, continue remeron 45mg po qhs, prozac 40mg po daily. we discussed some concern about having 2 antidepressant serotonergic agents. 03/11: Continue current regimen and plans. 03/12: Continue current regimen and plans I spent minutes with the patient and/or on the patient floor today, greater than?50% of which was spent counseling/coordinating care. Reason for contiued inpatient stay Substantial Risk for: med/psych decompensation
[2022-03-12 10:15] VITALS: BP 139/94; PULSE 110; RESP 16; TEMP 36.3; O2SAT 93
[2022-03-12] MEDS: FLUoxetine HCl 20 MG CAPSULE 40 MG PO (10:21)
[2022-03-12] MEDS: Gabapentin 300 MG CAPSULE PO ×3 (10:22→20:57)
[2022-03-12] MEDS: lisinopriL 10 MG TABLET PO (10:22)
[2022-03-12] MEDS: buPROPion HCl XL 150 MG TAB.ER.24H PO (10:22)
[2022-03-12] MEDS: Omeprazole 20 MG CAPSULE.DR PO (10:22)
--- NOTE | 2022-03-12 13:08 | HO.PM.IMCN ---
History of Present Illness Data of Consult Service Date: 03/12/22 Requesting physician: Ivanna Whittaker Primary Care Provider: Unknown Physician HPI Reason for consult: BRBPR 52 year old male with history of cocaine abuse - last use 1 year ago, opioid use disorder on suboxone, MDD, GERD, HTN, current 1/2 ppd smoker, and HLD admitted to psychiatry with consult placed for blood in the stool. Reports copious bright red blood both in the toilet water and on the stool. Stool itself was very dark. He has history constipation, but denies any recently. No fevers, chills, abdominal pain, nausea, vomiting, diarrhea, pain with defacation. States has a history of scant brbpr year ago that resolved spontaneously and he never sought evaluation for and again had small amount of BRBPR about 1 month ago while incacerated and pt reports rectal exam negative for hemorrhoids. He denies any history IBD. Does have FH colon cancer in his father, early 60s, and paternal GF, uncertain age. No hx abdominal surgery. has never had colonoscopy. Review of Systems Review of Systems: General: No fevers, malaise, unintentional weight loss Cardiovascular: No chest pain, palpitations, or leg edema Respiratory: No shortness of breath, wheezing, cough GI: +BRBPR, +melena. No abdominal pain, nausea, vomiting, diarrhea, constipation Neuro: No headaches, weakness, paresthesias Skin: No rashes or lesions [facility] Medical History (Updated 03/12/22 @ 13:32 by MARTHA Burns) Cocaine abuse Depression HLD (hyperlipidemia) HTN (hypertension) PTSD (post-traumatic stress disorder) Family History Father Colon cancer, Onset Age: 60 Paternal Grandfather Colon cancer Social History (Updated 03/12/22 @ 13:34 by MARTHA Burns) Household Members: Significant Other Housing: Apartment Do you presently have visiting nurse or other home services: No Patient Tobacco Use Status: Current everyday Tobacco user Tobacco use type: Cigarette Cigarette Packs Per Day: 0.5 Patient Interested in Nicotine Replacement: No Use of substances other than those prescribed or required for medical reasons: Yes Substance Use Type: Crack/Cocaine service: No Sexual orientation: Straight/Heterosexual Meds Allergies Allergy/AdvReac Type Severity Reaction Status Date / Time No Known Allergies Allergy Verified 03/05/22 02:17 [No Known Allergies*] Active Medications: Current Medications Acetaminophen (Acetaminophen 325 Mg Tablet) 650 mg PO Q6H PRN PRN Reason: Headache/Pain Mild Scale (1-3) Last Admin: 03/10/22 15:42 Dose: 650 mg Al Hydroxide/Mg Hydroxide (Magnesium Hydrox/Alum Hydrox 30 Ml Oral.Susp) 30 ml PO Q6H PRN PRN Reason: Heartburn/Nausea Atorvastatin Calcium (Atorvastatin Calcium 20 Mg Tablet) 20 mg PO BEDTIME [facility] Last Admin: 03/11/22 21:20 Dose: 20 mg Buprenorphine/Naloxone (Buprenorphine/Naloxone 2/0.5mg Film) 1 film SUBLINGUAL DAILY [facility] Last Admin: 03/11/22 16:02 Dose: 1 film Bupropion HCl (Bupropion Hcl Xl 150 Mg Tab.Er.24h) 150 mg PO DAILY [facility] Last Admin: 03/12/22 10:22 Dose: 150 mg Docusate Sodium (Docusate Sodium 100 Mg Capsule) 100 mg PO BEDTIME [facility] Last Admin: 03/11/22 21:19 Dose: 100 mg Fluoxetine HCl (Fluoxetine Hcl 20 Mg Capsule) 40 mg PO DAILY [facility] Last Admin: 03/12/22 10:21 Dose: 40 mg Gabapentin (Gabapentin 300 Mg Capsule) 300 mg PO TID [facility] Last Admin: 03/12/22 10:22 Dose: 300 mg Hydroxyzine HCl (Hydroxyzine Hcl 25 Mg Tablet) 25 mg PO Q6H PRN PRN Reason: Anxiety Last Admin: 03/12/22 05:43 Dose: 25 mg Lisinopril (Lisinopril 10 Mg Tablet) 10 mg PO DAILY [facility]; Protocol Last Admin: 03/12/22 10:22 Dose: 10 mg Magnesium Hydroxide (Milk Of Magnesia 30 Ml Oral.Susp) 30 ml PO DAILY PRN PRN Reason: Constipation Mirtazapine (Mirtazapine 15 Mg Tablet) 45 mg PO BEDTIME [facility] Last Admin: 03/11/22 21:20 Dose: 45 mg Nicotine Polacrilex (Nicotine Polacrilex 2 Mg Gum) 2 mg BUCCAL Q2H PRN PRN Reason: Nicotine Cravings Omeprazole (Omeprazole 20 Mg Capsule.Dr) 20 mg PO DAILY [facility] Last Admin: 03/12/22 10:22 Dose: 20 mg Quetiapine Fumarate (Quetiapine Fumarate 25 Mg Tablet) 25 mg PO Q6H PRN PRN Reason: anxiety/agitation/sleep Last Admin: 03/12/22 05:43 Dose: 25 mg Quetiapine Fumarate (Quetiapine Fumarate 50 Mg Tablet) 50 mg PO BEDTIME [facility] Home Medications Medication Instructions Recorded Confirmed Last Taken Type atorvastatin 20 mg tablet 20 mg PO BEDTIME 03/05/22 03/05/22 Unknown History docusate sodium 100 mg capsule 100 mg PO BEDTIME 03/05/22 03/05/22 Unknown History duloxetine 30 mg capsule,delayed 30 mg PO QAM 03/05/22 03/05/22 Unknown History release duloxetine 60 mg capsule,delayed 60 mg PO BEDTIME 03/05/22 03/05/22 Unknown History release lisinopril 10 mg tablet 10 mg PO QAM 03/05/22 03/05/22 Unknown History mirtazapine 45 mg tablet 45 mg PO BEDTIME 03/05/22 03/05/22 Unknown History omeprazole 20 mg capsule,delayed 20 mg PO QAM 03/05/22 03/05/22 Unknown History release Physical Exam Vital Signs and Narrative: Vital Signs: Last Vital Signs Temp 97.3 F 03/12/22 10:15 Pulse 110 H 03/12/22 10:15 Resp 16 03/12/22 10:15 BP 139/94 H 03/12/22 10:15 Pulse Ox 93 03/12/22 10:15 O2 Del Method 03/12/22 10:15 BMI result Body Mass Index 34.7 Seen and examined with RN present for this sensitive examination Constitutional - Awake and Alert, No apparent distress Eyes - PERRLA, EOMI Cardiovascular - S1S2, RRR, No edema Respiratory - Normal lung expansion, Normal respiratory effort, No respiratory distress, CTA bilaterally Gastrointestinal - NT / ND; +BS; No rebound or guarding Rectal: No external or palpable internal hemorrhoids. No anal fissures. Rectal tone appropriate. Prostate not enlarged and symmetric. Stool soft, brown with scant hard stool pieces in rectal vault. No obvious blood in stool Extremities - no calf tenderness bilaterally, no swelling Skin - Warm/Dry Neurological - Alert & oriented x3, CN II-XII in tact. No motor or sensory deficits Psychological - Appropriate affect Results Labs CBC and Chem 7: 03/05/22 02:32 03/06/22 08:35 Assessment and Plan (1) MDD (major depressive disorder), recurrent episode, moderate: Status: Acute (2) Post traumatic stress disorder (PTSD): Status: Acute (3) BRBPR (bright red blood per rectum): Status: Acute Plan 52 year old male with history of cocaine abuse - last use 1 year ago, opioid use disorder on suboxone, MDD, GERD, HTN, current 1/2 ppd smoker, and HLD admitted to psychiatry with consult placed for blood in the stool. 1-MDD/PTSD -Plan per psychiatry 2-BRBPR/Dark red stool -No renate blood on exam -Exam negative for external hemorrhoids, palpable internal hemorrhoids, or anal fissure -Painless bleeding, likely diverticular bleed. However, has strong FH colon cancer. Also has h/o cocaine abuse, at risk for AVM. Check CBC and stool for blood. If evidence of bleeding, consult GI and consider imaging. Otherwise, should follow up outpt with PCP for routine screening with colonoscopy. -Monitor for repeat occurrence Will follow and make recommendations as appropriate once results available.
[2022-03-12 13:44] LABS: MANUAL DIFF FLAG NO
[2022-03-12 13:49] LABS: Basophils Absolute Auto 0.1 X10*3/uL (0.0-0.2); Basophils Percent Auto 0.7 % (0-2); Eosinophils Absolute Auto 0.4 X10*3/uL (0.0-0.4); Eosinophils Percent Auto 4.7 % (0-4); Hematocrit 42.1 % (42.0-52.0); Hemoglobin 14.5 g/dl (14.0-18.0); Imm Gran Abs Auto 0.14 X10*3/uL (0.00-0.03); Imm Gran Pct Auto 1.7 % (0.0-0.4); Lymphocytes Absolute Auto 3.4 X10*3/uL (1.2-4.9); Lymphocytes Percent Auto 41.8 % (20-40); Mean Corpuscular HGB Conc 34.4 g/dl (31.0-36.0); Mean Corpuscular Hemoglobin 28.5 pg (27.0-33.0); Mean Corpuscular Volume 82.7 fL (80.0-98.0); Mean Platelet Volume 11.6 fL (9.4-12.4); Monocytes Absolute Auto 0.8 X10*3/uL (0.1-1.2); Monocytes Percent Auto 10.1 % (2-11); Neutrophils Absolute Auto 3.3 x10*3/uL (2.0-8.3); Platelet Count 271 X10*3/uL (160-400); Red Blood Count 5.09 X10*6/uL (4.60-5.80); Red Cell Distribution Width 13.9 % (11.0-16.0); White Blood Count 8.1 X10*3/uL (4.8-10.8)
[2022-03-12 14:27] LABS: OBS Int Ctl Valid YES; OBS1 NEGATIVE (NEGATIVE)
[2022-03-12] MEDS: Buprenorphine/Naloxone 2/0.5mg FILM 1 FILM SUBLINGUAL (15:44)
--- NOTE | 2022-03-12 16:32 | PM.GICN ---
History of Present Illness Data of Consult Service Date: 03/12/22 Requesting physician: Alisha Mcmillan Primary Care Provider: Unknown Physician HPI Reason for consult: BRBPR, dark stools 52 YM with hx of cocaine abuse (last use 1 year ago), opioid use disorder on suboxone, MDD, GERD, HTN, current 1/2 ppd smoker, and HLD, PTSD, depression seen at [facility] on 03/05/22 with c/o vague SI and depression and was admitted to [facility]. Pt was seen by the Hospitalist today for blood in the stool. Pt reported copious bright red blood both in the toilet water and on the stool. Stool itself was very dark. He has history constipation, but denies any recently. No fevers, chills, abdominal pain, nausea, vomiting, diarrhea, pain with defacation. Pt stated a history of scant brbpr a year ago that resolved spontaneously and he never sought evaluation for and again had small amount of BRBPR about 1 month ago while incacerated and pt reports rectal exam negative for hemorrhoids. Pt denied any history IBD. FH of colon cancer in his father, early 60s, and paternal GF, uncertain age. No hx abdominal surgery. has never had colonoscopy. Stool occult blood was negative. Review of Systems Review of Systems: General: No fevers, malaise, unintentional weight loss Cardiovascular: No chest pain, palpitations, or leg edema Respiratory: No shortness of breath, wheezing, cough GI: +BRBPR, +melena. No abdominal pain, nausea, vomiting, diarrhea, constipation Neuro: No headaches, weakness, paresthesias Skin: No rashes or lesions PMFSH Past Medical History Medical History Cocaine abuse Depression HLD (hyperlipidemia) HTN (hypertension) PTSD (post-traumatic stress disorder) Family History Family History Father Colon cancer, Onset Age: 60 Paternal Grandfather Colon cancer Social History Social History Household Members: Family Housing: House Do you presently have visiting nurse or other home services: No Patient Tobacco Use Status: Current everyday Tobacco user Tobacco use type: Cigarette Cigarette Packs Per Day: 0.5 Cigarettes Per Day: 10 Second Hand Smoke Exposure: No Substance Use Type: Crack/Cocaine service: No Sexual orientation: Straight/Heterosexual Meds Allergies Allergy/AdvReac Type Severity Reaction Status Date / Time No Known Allergies Allergy Verified 03/22/22 10:59 [No Known Allergies*] Active Medications: Current Medications Acetaminophen (Acetaminophen 325 Mg Tablet) 650 mg PO Q6H PRN PRN Reason: Headache/Pain Mild Scale (1-3) Last Admin: 03/10/22 15:42 Dose: 650 mg Al Hydroxide/Mg Hydroxide (Magnesium Hydrox/Alum Hydrox 30 Ml Oral.Susp) 30 ml PO Q6H PRN PRN Reason: Heartburn/Nausea Atorvastatin Calcium (Atorvastatin Calcium 20 Mg Tablet) 20 mg PO BEDTIME [facility] Last Admin: 03/11/22 21:20 Dose: 20 mg Buprenorphine/Naloxone (Buprenorphine/Naloxone 2/0.5mg Film) 1 film SUBLINGUAL DAILY [facility] Last Admin: 03/12/22 15:44 Dose: 1 film Bupropion HCl (Bupropion Hcl Xl 150 Mg Tab.Er.24h) 150 mg PO DAILY [facility] Last Admin: 03/12/22 10:22 Dose: 150 mg Docusate Sodium (Docusate Sodium 100 Mg Capsule) 100 mg PO BEDTIME [facility] Last Admin: 03/11/22 21:19 Dose: 100 mg Fluoxetine HCl (Fluoxetine Hcl 20 Mg Capsule) 40 mg PO DAILY [facility] Last Admin: 03/12/22 10:21 Dose: 40 mg Gabapentin (Gabapentin 300 Mg Capsule) 300 mg PO TID [facility] Last Admin: 03/12/22 15:44 Dose: 300 mg Hydroxyzine HCl (Hydroxyzine Hcl 25 Mg Tablet) 25 mg PO Q6H PRN PRN Reason: Anxiety Last Admin: 03/12/22 05:43 Dose: 25 mg Lisinopril (Lisinopril 10 Mg Tablet) 10 mg PO DAILY [facility]; Protocol Last Admin: 03/12/22 10:22 Dose: 10 mg Magnesium Hydroxide (Milk Of Magnesia 30 Ml Oral.Susp) 30 ml PO DAILY PRN PRN Reason: Constipation Mirtazapine (Mirtazapine 15 Mg Tablet) 45 mg PO BEDTIME [facility] Last Admin: 03/11/22 21:20 Dose: 45 mg Nicotine Polacrilex (Nicotine Polacrilex 2 Mg Gum) 2 mg BUCCAL Q2H PRN PRN Reason: Nicotine Cravings Omeprazole (Omeprazole 20 Mg Capsule.Dr) 20 mg PO DAILY [facility] Last Admin: 03/12/22 10:22 Dose: 20 mg Quetiapine Fumarate (Quetiapine Fumarate 25 Mg Tablet) 25 mg PO Q6H PRN PRN Reason: anxiety/agitation/sleep Last Admin: 03/12/22 05:43 Dose: 25 mg Quetiapine Fumarate (Quetiapine Fumarate 50 Mg Tablet) 50 mg PO BEDTIME [facility] Physical Exam Vital Signs: Vital Signs: Last Vital Signs Temp 97.3 F 03/12/22 10:15 Pulse 110 H 03/12/22 10:15 Resp 16 03/12/22 10:15 BP 139/94 H 03/12/22 10:15 Pulse Ox 93 03/12/22 10:15 O2 Del Method 03/12/22 10:15 BMI result Body Mass Index 34.7 Const: General: healthy appearing and no acute distress Nutritional Appearance: obese Orientation/consciousness: patient oriented x3 Limitations: no limitations HEENT: Head: Yes normal to inspection Ears: hearing grossly normal bilaterally Mouth: Normal oral and palatal mucosa present Eyes: Sclerae: sclerae normal Pupils: Equal, round and reactive pupils present Neck: Neck: Yes normal visual inspection Chest: Chest palpation & inspection: normal inspection of the chest Resp: Effort & Inspection: normal respiratory effort Auscultation: clear to auscultation bilaterally Cardio: Palpation: normal PMI Rate: regular rate Rhythm: regular rhythm Heart sounds: S1 normal heart sound present, S2 normal heart sound present and no murmurs GI: Palpation (GI): Soft to palpation, nontender and No hepatosplenomegaly present Auscultation: normal bowel sounds Rectal Exam - Male: Yes deferred Skin: General skin exam: no rashes or lesions noted Neuro: General: patient oriented x3, gait normal and moves all extremities Cranial nerves: Yes Equal, round and reactive pupils present Psych: Appearance: grossly normal Mental Status: mental status grossly normal Results Labs CBC & Chem 7: 03/13/22 08:36 03/06/22 08:35 Labs: Short CBC 03/12/22 Range/Units 13:38 WBC 8.1 (4.8-10.8) X10*3/uL Hgb 14.5 (14.0-18.0) g/dl Hct 42.1 (42.0-52.0) % Plt Count 271 (160-400) X10*3/uL Assessment and Plan (1) BRBPR (bright red blood per rectum): Status: Acute (2) Elevated LFTs: Status: Acute Plan 52 YM with hx of cocaine abuse (last use 1 year ago), opioid use disorder on suboxone, MDD, GERD, HTN, current 1/2 ppd smoker, and HLD, PTSD, depression seen at [facility] on 03/05/22 with c/o vague SI and depression and was admitted to [facility]. Pt reported copious bright red blood both in the toilet water and on the stool. FH of colon cancer in his father, early 60s, and paternal GF, uncertain age. Stool occult blood was negative. Pt is rather anxious and requesting a colonoscopy during this hospitalization. Rectal bleeding possibly due to hemorrhoids, diverticulosis, AVMs or large colon polyp. Pt needs a colonoscopy given rectal bleeding and a positive FH of colon cancer. Elevated LFTs possibly due to TINEO, AIH, chronic viral hepatitis, hemochromatosis. RECOMMENDATIONS: 1. Patient scheduled for a colonoscopy on 03/14/[address] Maxwell for further evaluation of rectal bleeding. Colonoscopy procedure and potential complications including bleeding, perforation, reaction to medications and missed diagnosis was reviewed with the patient. He is eager to proceed. 2. Check abdominal US and hepatitis B and C serologies and lab tests for metabolic causes of chronic liver disease for evaluation of elevated LFTs. Procedures Date of Service Date of Service: 03/12/22
[2022-03-12 20:53] VITALS: BP 137/73; PULSE 92; RESP 16; TEMP 36.6; O2SAT 93
[2022-03-12] MEDS: Mirtazapine 15 MG TABLET 45 MG PO (20:55)
[2022-03-12] MEDS: QUEtiapine Fumarate 50 MG TABLET PO (20:56)
[2022-03-12] MEDS: Docusate Sodium 100 MG CAPSULE PO (20:57)
[2022-03-12] MEDS: Atorvastatin Calcium 20 MG TABLET PO (20:57)
[2022-03-13] MEDS: Acetaminophen 325 MG TABLET 650 MG PO ×2 (01:56→23:01)
[2022-03-13 08:39] VITALS: BP 133/82; PULSE 101; RESP 18; TEMP 36.6; O2SAT 92
[2022-03-13] MEDS: lisinopriL 10 MG TABLET PO (08:40)
[2022-03-13] MEDS: FLUoxetine HCl 20 MG CAPSULE 40 MG PO (08:40)
[2022-03-13] MEDS: Omeprazole 20 MG CAPSULE.DR PO (08:40)
[2022-03-13] MEDS: buPROPion HCl XL 150 MG TAB.ER.24H PO (08:41)
[2022-03-13 08:44] LABS: MANUAL DIFF FLAG NO
[2022-03-13 08:47] LABS: Basophils Absolute Auto 0.1 X10*3/uL (0.0-0.2); Basophils Percent Auto 0.7 % (0-2); Eosinophils Absolute Auto 0.3 X10*3/uL (0.0-0.4); Eosinophils Percent Auto 4.4 % (0-4); Hematocrit 41.7 % (42.0-52.0); Hemoglobin 14.6 g/dl (14.0-18.0); Imm Gran Abs Auto 0.15 X10*3/uL (0.00-0.03); Imm Gran Pct Auto 2.1 % (0.0-0.4); Lymphocytes Absolute Auto 2.9 X10*3/uL (1.2-4.9); Lymphocytes Percent Auto 40.8 % (20-40); Mean Corpuscular Hemoglobin 29.2 pg (27.0-33.0); Mean Corpuscular Volume 83.4 fL (80.0-98.0); Mean Platelet Volume 11.2 fL (9.4-12.4); Monocytes Absolute Auto 0.7 X10*3/uL (0.1-1.2); Monocytes Percent Auto 10.3 % (2-11); Neutrophils Percent Auto 41.7 % (45-73); Platelet Count 254 X10*3/uL (160-400); Red Cell Distribution Width 13.9 % (11.0-16.0); White Blood Count 7.1 X10*3/uL (4.8-10.8)
[2022-03-13 08:52] LABS: INTERNATIONAL NORM RATIO 0.9 (0.9-1.1); Prothrombin Time 10.3 SEC (10.0-13.1)
[2022-03-13 09:29] LABS: HBS Num1 > 1000.00 mIU/mL (0-7.99); HBc Num1 0.24 S/CO (0.00-0.79); HBsAGNum1 0.29 S/CO (0.00-0.99); Hepatitis B Core Antibody Nonreactive (Nonreactive); Hepatitis B Surface Antigen Negative (Negative); ~HepC Num1 0.11 S/CO (0.00-0.79); ~Hepatitis B Surface Antibody REACTIVE (Nonreactive); ~Hepatitis C Antibody Nonreactive (Nonreactive)
[2022-03-13] MEDS: Gabapentin 300 MG CAPSULE PO ×3 (10:43→20:35)
--- NOTE | 2022-03-13 12:28 | HO.PSYCHPN ---
Subjective Subjective Date of Service: 03/13/22 Reason For Visit: Depression suicidal ideation Subjective Notes: Conditional Voluntary Interim History: Pt reports feeling calmer, less anxious, less depressed. He denies SI/HI. He reports some difficulty falling and staying asleep. He asks about adderall for ADHD but understands that he will have to work with OP providers as he continues to work on his recovery. colonoscopy scheduled for tomorrow. Medication Compliance: Yes Side effects from medications: No Review of Systems Review of Systems General: No fevers, malaise, unintentional weight loss Cardiovascular: No chest pain, palpitations, or leg edema Respiratory: No shortness of breath, wheezing, cough GI: +BRBPR, +melena. No abdominal pain, nausea, vomiting, diarrhea, constipation Neuro: No headaches, weakness, paresthesias Skin: No rashes or lesions Yes all other systems are reviewed and are negative Constitutional: Reports as per HPI and Reports no additional constitutional complaints Diagnostics Vital Signs (24Hr): Vital Signs - 24 hr 03/12/22 20:53 03/13/22 08:39 Temperature 98 F 97.9 F Pulse Rate 92 101 H Respiratory Rate 16 18 Blood Pressure 137/73 133/82 Pulse Oximetry 93 92 Oxygen Delivery Method Room Air Room Air BMI result Body Mass Index 34.7 Labs Results: 03/13/22 08:36 03/06/22 08:35 Labs: Laboratory Results - last 48 hr 03/12/22 03/12/22 03/13/22 13:38 14:12 08:36 WBC 8.1 7.1 RBC 5.09 5.00 Hgb 14.5 14.6 Hct 42.1 41.7 L MCV 82.7 83.4 MCH 28.5 29.2 MCHC 34.4 35.0 RDW 13.9 13.9 Plt Count 271 254 MPV 11.6 11.2 Immature Gran % (Auto) 1.7 H 2.1 H Neut % (Auto) 41.0 L 41.7 L Lymph % (Auto) 41.8 H 40.8 H [place] % (Auto) 10.1 10.3 Eos % (Auto) 4.7 H 4.4 H Baso % (Auto) 0.7 0.7 Lymph # (Auto) 3.4 2.9 [place] # (Auto) 0.8 0.7 Eos # (Auto) 0.4 0.3 Baso # (Auto) 0.1 0.1 Abs Immat Gran (auto) 0.14 H 0.15 H Absolute Neuts (auto) 3.3 3.0 Absolute Nucleated RBC 0.000 0.000 Nucleated RBC % (auto) 0.0 0.0 PT INR Stool Occult Blood NEGATIVE Hep Bs Antigen Hep Bs Antibody Hep B Core Total Ab Hepatitis C Ab (EIA) 03/13/22 03/13/22 08:36 08:36 WBC RBC Hgb Hct MCV MCH MCHC RDW Plt Count MPV Immature Gran % (Auto) Neut % (Auto) Lymph % (Auto) [place] % (Auto) Eos % (Auto) Baso % (Auto) Lymph # (Auto) [place] # (Auto) Eos # (Auto) Baso # (Auto) Abs Immat Gran (auto) Absolute Neuts (auto) Absolute Nucleated RBC Nucleated RBC % (auto) PT 10.3 INR 0.9 Stool Occult Blood Hep Bs Antigen Negative Hep Bs Antibody REACTIVE Hep B Core Total Ab Nonreactive Hepatitis C Ab (EIA) Nonreactive Medications Medications Current Medications Acetaminophen (Acetaminophen 325 Mg Tablet) 650 mg PO Q6H PRN PRN Reason: Headache/Pain Mild Scale (1-3) Last Admin: 03/13/22 01:56 Dose: 650 mg Al Hydroxide/Mg Hydroxide (Magnesium Hydrox/Alum Hydrox 30 Ml Oral.Susp) 30 ml PO Q6H PRN PRN Reason: Heartburn/Nausea Atorvastatin Calcium (Atorvastatin Calcium 20 Mg Tablet) 20 mg PO BEDTIME [facility] Last Admin: 03/12/22 20:57 Dose: 20 mg Buprenorphine/Naloxone (Buprenorphine/Naloxone 2/0.5mg Film) 1 film SUBLINGUAL DAILY@1500 [facility] Last Admin: 03/13/22 14:59 Dose: 1 film Bupropion HCl (Bupropion Hcl Xl 150 Mg Tab.Er.24h) 150 mg PO DAILY [facility] Last Admin: 03/13/22 08:41 Dose: 150 mg Docusate Sodium (Docusate Sodium 100 Mg Capsule) 100 mg PO BEDTIME [facility] Last Admin: 03/12/22 20:57 Dose: 100 mg Fluoxetine HCl (Fluoxetine Hcl 20 Mg Capsule) 40 mg PO DAILY [facility] Last Admin: 03/13/22 08:40 Dose: 40 mg Gabapentin (Gabapentin 300 Mg Capsule) 300 mg PO TID [facility] Last Admin: 03/13/22 14:59 Dose: 300 mg Hydroxyzine HCl (Hydroxyzine Hcl 25 Mg Tablet) 25 mg PO Q6H PRN PRN Reason: Anxiety Last Admin: 03/12/22 05:43 Dose: 25 mg Lisinopril (Lisinopril 10 Mg Tablet) 10 mg PO DAILY [facility]; Protocol Last Admin: 03/13/22 08:40 Dose: 10 mg Magnesium Hydroxide (Milk Of Magnesia 30 Ml Oral.Susp) 30 ml PO DAILY PRN PRN Reason: Constipation Mirtazapine (Mirtazapine 15 Mg Tablet) 45 mg PO BEDTIME [facility] Last Admin: 03/12/22 20:55 Dose: 45 mg Nicotine Polacrilex (Nicotine Polacrilex 2 Mg Gum) 2 mg BUCCAL Q2H PRN PRN Reason: Nicotine Cravings Omeprazole (Omeprazole 20 Mg Capsule.Dr) 20 mg PO DAILY [facility] Last Admin: 03/13/22 08:40 Dose: 20 mg Polyethylene Glycol/Electrolytes (Peg 3350/Na Sulf,Bicarb,Cl/Kcl 4,000 Ml Soln.Recon) 240 ml PO Q10M [facility] Stop: 03/13/22 16:41 Last Admin: 03/13/22 15:32 Dose: 240 ml Quetiapine Fumarate (Quetiapine Fumarate 25 Mg Tablet) 25 mg PO Q6H PRN PRN Reason: anxiety/agitation/sleep Last Admin: 03/12/22 05:43 Dose: 25 mg Quetiapine Fumarate (Quetiapine Fumarate 50 Mg Tablet) 50 mg PO BEDTIME [facility] Last Admin: 03/12/22 20:56 Dose: 50 mg Allergies Allergies Allergy/AdvReac Type Severity Reaction Status Date / Time No Known Allergies Allergy Verified 03/05/22 02:17 [No Known Allergies*] Assessment & Plan Assessment & Plan (1) MDD (major depressive disorder), recurrent episode, moderate: Status: Acute Code(s): F33.1 - Major depressive disorder, recurrent, moderate (2) Cocaine use disorder: Status: Acute Code(s): F14.10 - Cocaine abuse, uncomplicated (3) Opioid use disorder: Status: Acute Code(s): F11.90 - Opioid use, unspecified, uncomplicated Plan 03/13 continue current tx. I spent minutes with the patient and/or on the patient floor today, greater than?50% of which was spent counseling/coordinating care. Reason for contiued inpatient stay Substantial Risk for: harm to self and inability to function
[2022-03-13] MEDS: bisacodyL 5 MG TABLET.DR 10 MG PO (13:53)
[2022-03-13] MEDS: PEG 3350/Na Sulf,Bicarb,Cl/KCL 4,000 ML SOLN.RECON 240 ML PO ×17 (14:02→18:05)
[2022-03-13] MEDS: Buprenorphine/Naloxone 2/0.5mg FILM 1 FILM SUBLINGUAL (14:59)
[2022-03-13 20:15] VITALS: BP 138/83; PULSE 88; RESP 16; TEMP 36.6; O2SAT 93
[2022-03-13] MEDS: Atorvastatin Calcium 20 MG TABLET PO (20:35)
[2022-03-13] MEDS: QUEtiapine Fumarate 50 MG TABLET PO (20:35)
[2022-03-13] MEDS: Mirtazapine 15 MG TABLET 45 MG PO (20:35)
[2022-03-13] MEDS: Docusate Sodium 100 MG CAPSULE PO (20:35)
[2022-03-13 22:15] VITALS: BP 130/82; PULSE 106; RESP 16; TEMP 36.6; O2SAT 93
[2022-03-13] MEDS: hydrOXYzine HCL 25 MG TABLET PO (22:57)
[2022-03-13] MEDS: QUEtiapine Fumarate 25 MG TABLET PO (22:57)
[2022-03-14 02:01] LABS: Troponin-I High Sensitivity < 3.5 ng/L (<3.5-35.0)
[2022-03-14 04:23] LABS: Troponin-I High Sensitivity < 3.5 ng/L (<3.5-35.0)
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
[2022-03-14 10:20] LABS: Alanine Aminotransferase 96 U/L (0-40); Albumin Level 4.2 g/dL (3.5-5.0); Alkaline Phosphatase 107 U/L (39-117); Aspartate Amino Transferase 70 U/L (5-37); Bilirubin Direct 0.3 mg/dL (0.0-0.5); Bilirubin Total 0.8 mg/dL (0.0-1.0); Iron 102 mcg/dL (45-160); Percent Iron Saturation 33 % (15-50); Total Iron Binding Capacity 313 mcg/dL (228-428); Total Protein 7.4 g/dL (6.5-8.0); Unsaturated Iron Binding 211 ug/dL
[2022-03-14 10:25] VITALS: BP 123/75; PULSE 96; RESP 16; TEMP 36.8; O2SAT 96
[2022-03-14] MEDS: Gabapentin 300 MG CAPSULE PO (10:29)
[2022-03-14] MEDS: FLUoxetine HCl 20 MG CAPSULE 40 MG PO (10:29)
[2022-03-14] MEDS: Omeprazole 20 MG CAPSULE.DR PO (10:29)
[2022-03-14] MEDS: buPROPion HCl XL 150 MG TAB.ER.24H PO (10:29)
[2022-03-14] MEDS: lisinopriL 10 MG TABLET PO (10:29)
[2022-03-14 10:39] LABS: Ferritin 219 ng/mL (20-250)
--- NOTE | 2022-03-14 12:10 | P.CONHOSP_ITS ---
History of Present Illness Data of Consult Service Date: 03/14/22 Requesting physician: Shannan Bush Primary Care Provider: Unknown Physician HPI Reason for consult: cp, low o2 sats 52 year old male with history of opioid use d/o on suboxone, cocaine abuse (last use one yr ago), htn, hld, mdd, and ptsd admitted to psychiatry beign consulted on for chest pain and low O2 sats. Upon discussion with the pt, he denies having had chest pain but states he gets intermittent skipped heart beats in the chest. He states that he has had episodes of this in the past along with O2 saturations to around 91-92% at times and this was noted during his recent incarceration. He has not yet followed up outpt. Last night has O2 sat to 92%, now 96%. No known COPD but had been smoking 1/2 ppd cigarettes. He denies any sob, wheezing, palpitations, cp. EKG this morning showed NSR, no st/t wave abnormality. Review of Systems Review of Systems: General: No fevers, malaise, unintentional weight loss Cardiovascular: +skipped beats. No chest pain, palpitations, or leg edema Respiratory: No shortness of breath, wheezing, cough GI: No abdominal pain, nausea, vomiting, diarrhea, constipation, melena, hematochezia Neuro: No headaches, weakness, paresthesias Skin: No rashes or lesions [facility] Medical History (Updated 03/13/22 @ 08:46 by Jolene Martinez MD) Cocaine abuse Depression HLD (hyperlipidemia) HTN (hypertension) PTSD (post-traumatic stress disorder) Family History Father Colon cancer, Onset Age: 60 Paternal Grandfather Colon cancer Social History (Updated 03/12/22 @ 13:34 by MARTHA Burns) Household Members: Significant Other Housing: Apartment Do you presently have visiting nurse or other home services: No Patient Tobacco Use Status: Former Tobacco user Tobacco use type: Cigarette Cigarette Packs Per Day: 0.5 Patient Interested in Nicotine Replacement: No Use of substances other than those prescribed or required for medical reasons: Yes Substance Use Type: Crack/Cocaine service: No Sexual orientation: Straight/Heterosexual Meds Allergies Allergy/AdvReac Type Severity Reaction Status Date / Time No Known Allergies Allergy Verified 03/05/22 02:17 [No Known Allergies*] Active Medications: Current Medications Acetaminophen (Acetaminophen 325 Mg Tablet) 650 mg PO Q6H PRN PRN Reason: Headache/Pain Mild Scale (1-3) Last Admin: 03/13/22 23:01 Dose: 650 mg Al Hydroxide/Mg Hydroxide (Magnesium Hydrox/Alum Hydrox 30 Ml Oral.Susp) 30 ml PO Q6H PRN PRN Reason: Heartburn/Nausea Atorvastatin Calcium (Atorvastatin Calcium 20 Mg Tablet) 20 mg PO BEDTIME [facility] Last Admin: 03/13/22 20:35 Dose: 20 mg Buprenorphine/Naloxone (Buprenorphine/Naloxone 2/0.5mg Film) 1 film SUBLINGUAL DAILY@1500 [facility] Last Admin: 03/13/22 14:59 Dose: 1 film Bupropion HCl (Bupropion Hcl Xl 150 Mg Tab.Er.24h) 150 mg PO DAILY [facility] Last Admin: 03/14/22 10:29 Dose: 150 mg Docusate Sodium (Docusate Sodium 100 Mg Capsule) 100 mg PO BEDTIME [facility] Last Admin: 03/13/22 20:35 Dose: 100 mg Fluoxetine HCl (Fluoxetine Hcl 20 Mg Capsule) 40 mg PO DAILY [facility] Last Admin: 03/14/22 10:29 Dose: 40 mg Gabapentin (Gabapentin 300 Mg Capsule) 300 mg PO TID [facility] Last Admin: 03/14/22 10:29 Dose: 300 mg Hydroxyzine HCl (Hydroxyzine Hcl 25 Mg Tablet) 25 mg PO Q6H PRN PRN Reason: Anxiety Last Admin: 03/13/22 22:57 Dose: 25 mg Lisinopril (Lisinopril 10 Mg Tablet) 10 mg PO DAILY [facility]; Protocol Last Admin: 03/14/22 10:29 Dose: 10 mg Magnesium Hydroxide (Milk Of Magnesia 30 Ml Oral.Susp) 30 ml PO DAILY PRN PRN Reason: Constipation Mirtazapine (Mirtazapine 15 Mg Tablet) 45 mg PO BEDTIME [facility] Last Admin: 03/13/22 20:35 Dose: 45 mg Nicotine Polacrilex (Nicotine Polacrilex 2 Mg Gum) 2 mg BUCCAL Q2H PRN PRN Reason: Nicotine Cravings Omeprazole (Omeprazole 20 Mg Capsule.Dr) 20 mg PO DAILY [facility] Last Admin: 03/14/22 10:29 Dose: 20 mg Quetiapine Fumarate (Quetiapine Fumarate 25 Mg Tablet) 25 mg PO Q6H PRN PRN Reason: anxiety/agitation/sleep Last Admin: 03/13/22 22:57 Dose: 25 mg Quetiapine Fumarate (Quetiapine Fumarate 50 Mg Tablet) 50 mg PO BEDTIME [facility] Last Admin: 03/13/22 20:35 Dose: 50 mg Home Medications Medication Instructions Recorded Confirmed Last Taken Type atorvastatin 20 mg tablet 20 mg PO BEDTIME 03/05/22 03/05/22 Unknown History docusate sodium 100 mg capsule 100 mg PO BEDTIME 03/05/22 03/05/22 Unknown History lisinopril 10 mg tablet 10 mg PO QAM 03/05/22 03/05/22 Unknown History omeprazole 20 mg capsule,delayed 20 mg PO QAM 03/05/22 03/05/22 Unknown History release Physical Exam 2 Vital Signs and Narrative: Vital Signs: Last Vital Signs Temp 98.3 F 03/14/22 10:25 Pulse 96 03/14/22 10:25 Resp 16 03/14/22 10:25 BP 123/75 03/14/22 10:25 Pulse Ox 96 03/14/22 10:25 O2 Del Method 03/14/22 10:25 BMI result Body Mass Index 34.7 Constitutional - Awake and Alert, No apparent distress Cardiovascular - S1S2, RRR, No edema Respiratory - Normal lung expansion, Normal respiratory effort, No respiratory d istress, CTA bilaterally Extremities - no calf tenderness bilaterally, no swelling Skin - Warm/Dry Neurological - Alert & oriented x3 Results Labs CBC and Chem 7: 03/13/22 08:36 03/06/22 08:35 Labs: Laboratory Results - last 24 hr 03/14/22 09:16 Iron 102 TIBC 313 % Saturation 33 Unsat Iron Binding 211 Ferritin 219 Total Bilirubin 0.8 Direct Bilirubin 0.3 AST 70 H ALT 96 H Alkaline Phosphatase 107 Total Protein 7.4 Albumin 4.2 Assessment and Plan (1) MDD (major depressive disorder), recurrent episode, moderate: Status: Acute (2) Post traumatic stress disorder (PTSD): Status: Acute Plan 52 year old male with history of opioid use d/o on suboxone, cocaine abuse (last use one yr ago), htn, hld, mdd, and ptsd admitted to psychiatry being consulted on for chest pain and low O2 sats. 1-MDD/PTSD -Plan per psychiatry 2-Palpitation -EKG normal w/o arrhythmia. No tachycardia. No cp, sob, lightheadedness -Likely PAC vs PVC -Recommend outpt follow up with pcp 3-Low normal O2 sats- no hypoxia -Pt with significant smoking history. Possibly underlying COPD -Follow up outpt with PCP for further evaluation. Thank you for allowing me to participate in this consult. Signing off at this time. Please do not hesitate to call for further questions.
[2022-03-16 22:17] LABS: PES - Abn Protein Band 1 0.3 g/dL (NONE DETECTED); Prot Elec - Albumin 4.2 g/dL (3.8-4.8); Prot Elec - Alpha1 0.3 g/dL (0.2-0.3); Prot Elec - Alpha2 0.7 g/dL (0.5-0.9); Prot Elec - Beta 1 0.4 g/dL (0.4-0.6); Prot Elec - Beta 2 0.3 g/dL (0.2-0.5); Prot Elec - Gamma 1.3 g/dL (0.8-1.7); Prot Elec - Total Protein 7.2 g/dL (6.1-8.1)
[2022-03-17 12:51] LABS: Anti Nuclear Antibody Screen POSITIVE (NEGATIVE)
[2022-03-17 13:51] LABS: Smooth Muscle Antibody <20 U (<20)
== END 2022-03-14 13:06 | disposition home health service (06) | DRG 751 ==
LOC: HO.ED 13:31 → HO.PADLT16 22:23
PROVIDERS: Hospitalist; Internal Medicine Gastroenterology; Physician Assistant; Psychiatry & Neurology Psychiatry; Admitting Provider Psychiatry & Neurology Psychiatry; Emergency Provider Emergency Medicine; Visit Provider Social Worker
DX: F33.1 Major depressive disorder, recurrent, moderate (principal); R45.851 Suicidal ideations; E78.5 Hyperlipidemia, unspecified; F43.10 Post-traumatic stress disorder, unspecified; K62.5 Hemorrhage of anus and rectum; R00.2 Palpitations; F14.10 Cocaine abuse, uncomplicated; I10 Essential (primary) hypertension; F17.210 Nicotine dependence, cigarettes, uncomplicated; F11.20 Opioid dependence, uncomplicated; Z71.6 Tobacco abuse counseling; Z80.0 Family history of malignant neoplasm of digestive organs; Z20.822 Contact with and (suspected) exposure to COVID-19; Z79.899 Other long term (current) drug therapy
CPT/HCPCS: 36415; 76700; 80048; 80053; 80061; 80076; 80307; 81001; 82077; 82272; 82607; 82728; 82746; 83036; 83540; 84165; 84439; 84443; 84484; 85025; 85610; 86015; 86038; 86039; 86704; 86706; 86803; 87340; 87635; 90792; 93005; 99285

== ENCOUNTER 2022-03-14 13:22 | Day surgery (SDC) | payer MEDICAID, SELFPAY ==
[2022-03-14] MEDS: Lactated Ringers 1,000 ML 50 ML IVCONT (13:20)
[2022-03-14 13:30] VITALS: BMI 34.7
[2022-03-14 13:32] VITALS: BP 136/92; PULSE 90; RESP 16; TEMP 36.6; O2SAT 93
--- NOTE | 2022-03-14 13:34 | PC.NURSE ---
spoke to karthik dawson on m3 and patient has been clinically discharged. ride already on her way eliu at [phone].
--- NOTE | 2022-03-14 13:49 | P.OP_ITS ---
Operative Note Operative Note Date of Service: 03/14/22 Narrative: Procedure: Colonoscopy Indication: Lower GI bleeding and Family history of colon cancer Endoscopist: Dianelys Maxwell MD Anesthesia Provider: Dr Lorie Kapoor Anesthesia type: MAC Instrument: Olympus PCF-H190L and CF-190L Consent: Indication, risks vs benefits, and alternatives were discussed with the patient who gave written informed consent to proceed. Monitoring: EKG, pulse, pulse oximetry and blood pressure were monitored thr oughout the procedure. Please see anesthesia flowsheet. Procedure: The patient was brought to the procedure room and placed in the left lateral decubitus position. IV medications were administered by the anesthesia provider in attendance. A digital rectal exam was performed which was normal. The colonoscope was then inserted through the anus and advanced through the co moisés to the cecum at 85 cm. Mucosa was carefully examined under high definition white light as the instrument was slowly withdrawn in a retrograde panoramic fashion. Retroflexion was performed in rectum. The procedure was somewhat difficult due to significant looping in sigmoid colon despite abdominal pressure. The scope was then changed to CF-190 and cecum was easily reached. There were no immediate obvious complications. The quality of the prep was BBPS: 1+2+2 = inadequate. Withdrawal time 11 minutes. Limitations: Poor prep. Findings: Mucosa: Limited visualisation due to poor prep but appeared normal to cecum to the extent visualised. No large polyps were noted. Protruding lesions: * Large internal hemorrhoids with stigmata of recent bleeding. Impression: 1. Poor prep. Inadequate for colon cancer screening. 3. Large internal hemorrhoids, likely cause of rectal bleeding. Recommendations: - Recommend fiber intake, sitz bath and stool softeners. - He will need repeat colonoscopy with split prep for CRC screening purpose.
--- NOTE | 2022-03-14 13:49 | MHC.SHP ---
Pre-Procedural Eval Section A Date of Service: 03/14/22 The patient is an INPATIENT: No The History & Physical has been completed within 30 days and I have reviewed it.: Yes Section B Chief Complaint: Rectal bleeding Allergies: Allergies Allergy/AdvReac Type Severity Reaction Status Date / Time No Known Allergies Allergy Verified 03/05/22 02:17 [No Known Allergies*] Plan Diagnosis/Plan: Unchanged I have reviewed the history and physical and performed a pertinent physical examination on my patient. No changes have occurred unless specified.
--- NOTE | 2022-03-14 13:59 | HO.ANESPROP2 ---
[facility] Active Problems Active Problems: All Active Problems (Updated 03/13/22 @ 08:46 by Jolene Martinez MD) Elevated LFTs (Acute) Dark red stool (Acute) BRBPR (bright red blood per rectum) (Acute) HTN (hypertension) (Acute) HLD (hyperlipidemia) (Acute) Opioid use disorder (Acute) Cocaine use disorder (Acute) Post traumatic stress disorder (PTSD) (Acute) MDD (major depressive disorder), recurrent episode, moderate (Acute) Depression (Acute) Past Medical History Medical History Cocaine abuse Depression HLD (hyperlipidemia) HTN (hypertension) PTSD (post-traumatic stress disorder) Family History Family History Father Colon cancer, Onset Age: 60 Paternal Grandfather Colon cancer Surgical History History of Problems with Anesthesia: No Social History Social History Household Members: Significant Other Housing: Apartment Do you presently have visiting nurse or other home services: No Patient Tobacco Use Status: Current everyday Tobacco user Tobacco use type: Cigarette Cigarette Packs Per Day: 0.5 Cigarettes Per Day: 8 Use of substances other than those prescribed or required for medical reasons: No Substance Use Type: Crack/Cocaine Are you DNR?: No Advance Directives: No Advance Directives Information Provided: Yes service: No Sexual orientation: Straight/Heterosexual Meds Allergies Allergy/AdvReac Type Severity Reaction Status Date / Time No Known Allergies Allergy Verified 03/05/22 02:17 [No Known Allergies*] Home Medications Medication Instructions Recorded Confirmed Last Taken Type docusate sodium 100 mg capsule 100 mg PO BEDTIME 03/05/22 03/05/22 Unknown History omeprazole 20 mg capsule,delayed 20 mg PO QAM 03/05/22 03/05/22 Unknown History release Exam Exam Date and Time: March 14, 2022 1359 Height,Weight and Vital Signs: Height 5 ft 9 in Weight 106.594 kg Last Vital Signs Temp 97.9 F 03/14/22 13:32 Pulse 90 03/14/22 13:32 Resp 16 03/14/22 13:32 BP 136/92 H 03/14/22 13:32 Pulse Ox 93 03/14/22 13:32 O2 Del Method 03/14/22 13:32 Airway Mallampati Class: III TM Dist: >3cm Neck ROM: Full Loose/Missing/Broken Teeth: No Heart: RRR Lungs: CTA Assessment and Plan Assessment Anesthesia Assessment: Anesthesia Plan Discussed and Chart Reviewed Final Anesthetic Review History of Problems with Anesthesia: No NPO: Yes ASA Class: II Final Preanesthetic Review: Meds/Allgs Chart Reviewed, Consent Obtained/Reviewed and Anes Risks/Benef Reviewed Patient Risk: Low Procedure Risk: Low Anesthetic Plan Anesthetic Plan: MAC: Disposition: Standard PACU
[2022-03-14 15:12] VITALS: BP 107/70; PULSE 89; RESP 18; TEMP 36.3; O2SAT 93
[2022-03-14 15:26] VITALS: BP 135/92; PULSE 91; RESP 16; TEMP 36.3; O2SAT 94
[2022-03-14 15:40] VITALS: BP 122/68; PULSE 85; RESP 16; TEMP 36.3; O2SAT 94
== END 2022-03-14 15:56 | disposition home or self-care (01) ==
PROVIDERS: Visit Provider Internal Medicine
PROC: 0DJD8ZZ Inspection of Lower Intestinal Tract, Via Natural or Artificial Opening Endoscopic (ICD-10-PCS; CPT 45378; principal; 2022-03-14 14:00)
DX: K62.5 Hemorrhage of anus and rectum (principal); Z80.0 Family history of malignant neoplasm of digestive organs; K64.8 Other hemorrhoids; K21.9 Gastro-esophageal reflux disease without esophagitis; I10 Essential (primary) hypertension; Z91.19 Patient's noncompliance with other medical treatment and regimen; E78.5 Hyperlipidemia, unspecified; F43.10 Post-traumatic stress disorder, unspecified; F33.1 Major depressive disorder, recurrent, moderate; F14.10 Cocaine abuse, uncomplicated; F11.10 Opioid abuse, uncomplicated; F17.210 Nicotine dependence, cigarettes, uncomplicated; Z79.899 Other long term (current) drug therapy
CPT/HCPCS: 45378

== ENCOUNTER → 2022-03-15 10:29 | Outpatient (BNVA) | payer MEDICAID, SELFPAY | PROVIDERS: Visit Provider Nurse Practitioner Psychiatric/Mental Health | DX: F11.20 Opioid dependence, uncomplicated (principal) | CPT/HCPCS: 99212 ==

== ENCOUNTER → 2022-03-22 10:45 | Outpatient (BNVA) | payer MEDICAID, SELFPAY | PROVIDERS: Visit Provider Nurse Practitioner Psychiatric/Mental Health | DX: Z51.81 Encounter for therapeutic drug level monitoring (principal); F11.20 Opioid dependence, uncomplicated | CPT/HCPCS: 80305; 99212 ==

== ENCOUNTER 2022-03-27 08:25 | Inpatient (IN) | payer OTHER, MEDICAID, SELFPAY ==
--- NOTE | 2022-03-27 | ECG_ITS ---
Test Reason : MED CLEARANCE Blood Pressure : / mmHG Vent. Rate : 083 BPM Atrial Rate : 083 BPM P-R Int : 180 ms QRS Dur : 098 ms QT Int : 384 ms P-R-T Axes : 071 036 060 degrees QTc Int : 451 ms Normal sinus rhythm Intra-ventricular conduction delay Otherwise normal ECG When compared with ECG of 05-MAR-2022 16:44, No significant change was found Referred By: Gaby Martell Electronically Signed By:MARCIO DELAROSA MD
[2022-03-27 08:28] VITALS: BP 128/79; TEMP 37.1; BMI 34.0
[2022-03-27 09:07] LABS: Appearance Urine Cloudy; Color Urine Yellow; Glucose Urine UA Negative (Negative); Leukocyte Esterase Urine Large (3+) (Negative); Nitrite Urine Negative (Negative); PH 6.5 (5.0-9.0); UMIC TRIGGER UACC YES; Urine Blood Negative (Negative); Urine Ketones Negative (Negative); Urine Protein Negative (Neg-Trace)
[2022-03-27 09:09] LABS: Bacteria Urine 2+ (None Seen); RBC Urine 0-2 /HPF (0-2); Squamous Epithelial Cell Urine >20 /HPF (0-2); UACC Culture Trigger YES
[2022-03-27 09:21] LABS: COVID-19 Test Negative (Negative); IDNOW Serial# 16C4AD1C
[2022-03-27 09:34] LABS: Amphetamine Screen Urine Not Detected (Not Detect); Barbiturates, Urine Not Detected (Not Detect); Benzodiazepines Screen Urine Not Detected (Not Detect); Cannabinoid Screen Urine Not Detected (Not Detect); Cocaine Screen Urine Not Detected (Not Detect); Fentanyl, urine Not Detected (Not Detect); Opiate Screen Urine Not Detected (Not Detect); Phencyclidine Screen Urine Not Detected (Not Detect)
[2022-03-27] MEDS: LORazepam 1 MG TABLET 2 MG PO (10:01)
--- NOTE | 2022-03-27 10:04 | ED.PSYCH ---
HPI - Psych General Chief Complaint: Psychiatric Symptoms Stated Complaint: CRISIS Time Seen by Provider: 03/27/22 09:16 Source: patient Mode of arrival: ambulatory Limitations: no limitations History of Present Illness HPI Narrative: 52 yold male presents to the ED for depression and suicidal thoughts since yesterday. Patient states his plans to kill himself with a gun. Patient states he has support at home and taking his meds. Patient has tried to kill herself before in the past. Related Data Home Medications Medication Instructions Recorded Confirmed docusate sodium 100 mg capsule 100 mg PO BEDTIME 03/05/22 03/27/22 lisinopril 10 mg tablet 10 mg PO DAILY 03/27/22 03/27/22 omeprazole 20 mg capsule,delayed 20 mg PO DAILY@0630 03/27/22 03/27/22 release Previous Rx's Medication Instructions Recorded atorvastatin 20 mg tablet 20 mg PO BEDTIME #30 tabs 03/14/22 bupropion HCl 150 mg 24 hr tablet, 150 mg PO DAILY #30 tabs 03/14/22 extended release fluoxetine 40 mg capsule 40 mg PO DAILY #30 caps 03/14/22 gabapentin 300 mg capsule 300 mg PO TID #90 caps 03/14/22 hydroxyzine HCl 25 mg tablet 25 mg PO Q6H PRN Anxiety #30 tabs 03/14/22 mirtazapine 15 mg tablet 45 mg PO BEDTIME #90 tabs 03/14/22 quetiapine 25 mg tablet 25 mg PO Q6H PRN 03/14/22 anxiety/agitation/sleep #30 tabs quetiapine 50 mg tablet 50 mg PO BEDTIME #30 tabs 03/14/22 buprenorphine 2 mg-naloxone 0.5 mg 1 film sublingual DAILY@1500 #15 ea 03/22/22 sublingual film (Suboxone) Allergies Allergy/AdvReac Type Severity Reaction Status Date / Time No Known Allergies Allergy Verified 03/22/22 10:59 [No Known Allergies*] Review of Systems Review of Systems: Suicidal and depressed Yes all other systems are reviewed and are negative PMFSH Past Medical History Medical History Cocaine abuse Depression HLD (hyperlipidemia) HTN (hypertension) PTSD (post-traumatic stress disorder) Family History Family History Father Colon cancer, Onset Age: 60 Paternal Grandfather Colon cancer Social History Social History Household Members: Significant Other Housing: Apartment Do you presently have visiting nurse or other home services: No Patient Tobacco Use Status: Current everyday Tobacco user Tobacco use type: Cigarette Cigarette Packs Per Day: 0.5 Cigarettes Per Day: 8 Substance Use Type: Crack/Cocaine Advance Directives: No Advance Directives Information Provided: No Healthcare Proxy: No Guardian: No service: No Sexual orientation: Straight/Heterosexual Physical Exam Vital Signs: Vital Signs: Last Vital Signs Temp 98.3 F 03/29/22 08:27 Pulse 82 03/29/22 08:27 Resp 16 03/29/22 08:27 BP 96/74 03/29/22 08:27 Pulse Ox 93 03/29/22 08:27 O2 Del Method 03/29/22 08:27 BMI result Body Mass Index 34.0 Const: General: cooperative, healthy appearing, comfortable, no acute distress, well developed, alert, awake and Physically active Orientation/consciousness: oriented to person, oriented to place, oriented to time and patient oriented x3 HEENT: Head: Yes normal to inspection, Yes No palpable skull fracture present, Yes normocephalic, Yes atraumatic and No abrasion Eyes: General: appearance normal, both eyes and all related structures Neck: Neck: Yes normal visual inspection, Yes full ROM, Yes no lymphadenopathy, Yes no meningeal signs, Yes trachea midline, Yes supple, No anterior neck swelling and No tender Chest: Chest palpation & inspection: normal inspection of the chest and normal palpation of entire chest wall Resp: Effort & Inspection: normal respiratory effort and able to speak in complete sentences Auscultation: clear to auscultation bilaterally Cardio: Jugular venous distension: no JVD Heart sounds: S1 normal heart sound present and S2 normal heart sound present GI: Inspection: Yes normal to inspection and No abdominal wall ecchymosis Palpation (GI): Soft to palpation, not firm, nontender, no guarding and not rigid : General: No CVA tenderness and Yes no CVA tenderness Back/Spine/Pelvis: Back: no CVA tenderness, No CVA tenderness and No back tenderness Skin: General skin exam: no rashes or lesions noted and elasticity normal Neuro: General: oriented to person, oriented to place, oriented to time, patient oriented x3, gait normal, tone normal, no meningeal signs and CN's II-XI intact bilaterally Cranial nerves: Yes CN's II-XII intact bilaterally Extrem: General: Yes normal to inspection and Yes full ROM Psych: Appearance: grossly normal, well kempt and not disheveled Course Course Course Narrative: Labs crisis consult med rec ordered Reevaluation(s) Reevaluation #1: Patient labs are normal. UA shows UTI. Patient waiting for crisis evaluation Time: 16:50 MDM - Psych MDM Narrative Medical decision making narrative: Depression Lab Data Result diagrams: 03/27/22 10:12 03/27/22 10:12 Labs: Lab Results 03/27/22 03/27/22 03/27/22 Range/Units 08:57 08:57 08:57 WBC (4.8-10.8) X10*3/uL RBC (4.60-5.80) X10*6/uL Hgb (14.0-18.0) g/dl Hct (42.0-52.0) % MCV (80.0-98.0) fL MCH (27.0-33.0) pg MCHC (31.0-36.0) g/dl RDW (11.0-16.0) % Plt Count (160-400) X10*3/uL MPV (9.4-12.4) fL Immature Gran % (Auto) (0.0-0.4) % Neut % (Auto) (45-73) % Lymph % (Auto) (20-40) % [place] % (Auto) (2-11) % Eos % (Auto) (0-4) % Baso % (Auto) (0-2) % Lymph # (Auto) (1.2-4.9) X10*3/uL [place] # (Auto) (0.1-1.2) X10*3/uL Eos # (Auto) (0.0-0.4) X10*3/uL Baso # (Auto) (0.0-0.2) X10*3/uL Abs Immat Gran (auto) (0.00-0.03) X10*3/uL Absolute Neuts (auto) (2.0-8.3) x10*3/uL Absolute Nucleated RBC (0.0-0.012) X10*3/uL Nucleated RBC % (auto) (0.0-0.2) /100WBC Sodium (135-145) mmol/L Potassium (3.3-5.1) mmol/L Chloride (96-108) mmol/L Carbon Dioxide (22-29) mmol/L Anion Gap (12-20) BUN (9-16) mg/dL Creatinine (0.5-1.4) mg/dL Estim Creat Clear Calc Estimated GFR Random Glucose (60-115) mg/dL Calcium (8.4-10.2) mg/dL Total Bilirubin (0.0-1.0) mg/dL AST (5-37) U/L ALT (0-40) U/L Alkaline Phosphatase (39-117) U/L Total Protein (6.5-8.0) g/dL Albumin (3.5-5.0) g/dL Urine Color Yellow Urine Appearance Cloudy Urine pH 6.5 (5.0-9.0) Ur Specific [place] 1.010 (1.005-1.025) Urine Protein Negative (Neg-Trace) mg/dL Urine Glucose (UA) Negative (Negative) mg/dL Urine Ketones Negative (Negative) mg/dL Urine Blood Negative (Negative) Urine Nitrite Negative (Negative) Ur Leukocyte Esterase Large (3+) H (Negative) Urine RBC 0-2 (0-2) /HPF Urine WBC 6-10 H (0-5) /HPF Ur Squamous Epith Cells >20 (0-2) /HPF Urine Bacteria 2+ (None Seen) Hyaline Casts 3-5 (0-2) /LPF Urine Opiates Screen Not Detected (Not Detect) Urine Fentanyl Screen Not Detected (Not Detect) Ur Barbiturates Screen Not Detected (Not Detect) Ur Phencyclidine Scrn Not Detected (Not Detect) Ur Amphetamines Screen Not Detected (Not Detect) U Benzodiazepines Scrn Not Detected (Not Detect) Urine Cocaine Screen Not Detected (Not Detect) U Marijuana (THC) Screen Not Detected (Not Detect) Ethyl Alcohol mg/dL COVID-19 ([facility]) Negative (Negative) COVID-19 Clin Com See Note 03/27/22 03/27/22 Range/Units 10:12 10:12 WBC 9.0 (4.8-10.8) X10*3/uL RBC 4.85 (4.60-5.80) X10*6/uL Hgb 13.7 L (14.0-18.0) g/dl Hct 39.5 L (42.0-52.0) % MCV 81.4 (80.0-98.0) fL MCH 28.2 (27.0-33.0) pg MCHC 34.7 (31.0-36.0) g/dl RDW 14.2 (11.0-16.0) % Plt Count 339 D (160-400) X10*3/uL MPV 10.6 (9.4-12.4) fL Immature Gran % (Auto) 0.7 H (0.0-0.4) % Neut % (Auto) 54.7 (45-73) % Lymph % (Auto) 33.7 (20-40) % [place] % (Auto) 7.4 (2-11) % Eos % (Auto) 2.9 (0-4) % Baso % (Auto) 0.6 (0-2) % Lymph # (Auto) 3.1 (1.2-4.9) X10*3/uL [place] # (Auto) 0.7 (0.1-1.2) X10*3/uL Eos # (Auto) 0.3 (0.0-0.4) X10*3/uL Baso # (Auto) 0.1 (0.0-0.2) X10*3/uL Abs Immat Gran (auto) 0.06 H (0.00-0.03) X10*3/uL Absolute Neuts (auto) 5.0 (2.0-8.3) x10*3/uL Absolute Nucleated RBC 0.000 (0.0-0.012) X10*3/uL Nucleated RBC % (auto) 0.0 (0.0-0.2) /100WBC Sodium 138 (135-145) mmol/L Potassium 3.7 (3.3-5.1) mmol/L Chloride 105 (96-108) mmol/L Carbon Dioxide 23 (22-29) mmol/L Anion Gap 14 (12-20) BUN 23 H (9-16) mg/dL Creatinine 1.37 (0.5-1.4) mg/dL Estim Creat Clear Calc 76.7 Estimated GFR 55 Random Glucose 130 H (60-115) mg/dL Calcium 9.1 (8.4-10.2) mg/dL Total Bilirubin 1.1 H (0.0-1.0) mg/dL AST 54 H (5-37) U/L ALT 26 (0-40) U/L Alkaline Phosphatase 95 (39-117) U/L Total Protein 7.3 (6.5-8.0) g/dL Albumin 4.4 (3.5-5.0) g/dL Urine Color Urine Appearance Urine pH (5.0-9.0) Ur Specific [place] (1.005-1.025) Urine Protein (Neg-Trace) mg/dL Urine Glucose (UA) (Negative) mg/dL Urine Ketones (Negative) mg/dL Urine Blood (Negative) Urine Nitrite (Negative) Ur Leukocyte Esterase (Negative) Urine RBC (0-2) /HPF Urine WBC (0-5) /HPF Ur Squamous Epith Cells (0-2) /HPF Urine Bacteria (None Seen) Hyaline Casts (0-2) /LPF Urine Opiates Screen (Not Detect) Urine Fentanyl Screen (Not Detect) Ur Barbiturates Screen (Not Detect) Ur Phencyclidine Scrn (Not Detect) Ur Amphetamines Screen (Not Detect) U Benzodiazepines Scrn (Not Detect) Urine Cocaine Screen (Not Detect) U Marijuana (THC) Screen (Not Detect) Ethyl Alcohol < 10 mg/dL COVID-19 ([facility]) (Negative) COVID-19 Clin Com Discharge Plan Discharge Clinical Impression: Depression Prescriptions: No Action docusate sodium 100 mg Capsule 100 mg PO BEDTIME mirtazapine 15 mg Tablet 45 mg PO BEDTIME Qty: 90 0RF bupropion HCl 150 mg Tablet Extended Release 24 Hr 150 mg PO DAILY Qty: 30 0RF fluoxetine 40 mg capsule 40 mg PO DAILY Qty: 30 0RF quetiapine 25 mg Tablet 25 mg PO Q6H PRN (Reason: anxiety/agitation/sleep) Qty: 30 0RF gabapentin 300 mg Capsule 300 mg PO TID Qty: 90 0RF hydroxyzine HCl 25 mg Tablet 25 mg PO Q6H PRN (Reason: Anxiety) Qty: 30 0RF quetiapine 50 mg Tablet 50 mg PO BEDTIME Qty: 30 0RF atorvastatin 20 mg Tablet 20 mg PO BEDTIME Qty: 30 0RF lisinopril 10 mg tablet 10 mg PO DAILY omeprazole 20 mg capsule,delayed release(DR/EC) 20 mg PO DAILY@0630 buprenorphine-naloxone [Suboxone] 2-0.5 mg film 1 film sublingual DAILY@1500 Qty: 15 0RF
[2022-03-27 10:17] LABS: MANUAL DIFF FLAG NO
[2022-03-27 10:18] LABS: Basophils Absolute Auto 0.1 X10*3/uL (0.0-0.2); Basophils Percent Auto 0.6 % (0-2); Eosinophils Absolute Auto 0.3 X10*3/uL (0.0-0.4); Eosinophils Percent Auto 2.9 % (0-4); Hematocrit 39.5 % (42.0-52.0); Hemoglobin 13.7 g/dl (14.0-18.0); Imm Gran Abs Auto 0.06 X10*3/uL (0.00-0.03); Imm Gran Pct Auto 0.7 % (0.0-0.4); Lymphocytes Absolute Auto 3.1 X10*3/uL (1.2-4.9); Lymphocytes Percent Auto 33.7 % (20-40); Mean Corpuscular HGB Conc 34.7 g/dl (31.0-36.0); Mean Corpuscular Hemoglobin 28.2 pg (27.0-33.0); Mean Corpuscular Volume 81.4 fL (80.0-98.0); Mean Platelet Volume 10.6 fL (9.4-12.4); Monocytes Absolute Auto 0.7 X10*3/uL (0.1-1.2); Monocytes Percent Auto 7.4 % (2-11); Neutrophils Percent Auto 54.7 % (45-73); Platelet Count 339 X10*3/uL (160-400); Red Blood Count 4.85 X10*6/uL (4.60-5.80); Red Cell Distribution Width 14.2 % (11.0-16.0)
[2022-03-27 10:35] LABS: Alanine Aminotransferase 26 U/L (0-40); Albumin Level 4.4 g/dL (3.5-5.0); Alkaline Phosphatase 95 U/L (39-117); Anion Gap 14 (12-20); Aspartate Amino Transferase 54 U/L (5-37); Bilirubin Total 1.1 mg/dL (0.0-1.0); Blood Urea Nitrogen 23 mg/dL (9-16); Calcium 9.1 mg/dL (8.4-10.2); Carbon Dioxide 23 mmol/L (22-29); Chloride 105 mmol/L (96-108); Creatinine Clr Calc Pharmacy 76.7; Estimated Glomerular Filt Rate 55; Ethanol < 10 mg/dL; Glucose Random 130 mg/dL (60-115); Potassium 3.7 mmol/L (3.3-5.1); Sodium 138 mmol/L (135-145); Total Protein 7.3 g/dL (6.5-8.0)
--- NOTE | 2022-03-27 11:11 | PHA.MEDREC ---
Pharmacy Consult ? Medication Reconciliation Pharmacy has completed the medication reconciliation. Spoke with patient in the ED. patient previously had list sent from his [place] [facility]. Recently admitted and discharged on 03/14. Patient states he last took his medications about 3 days ago. He just picked up the suboxone from his pharmacy.
[2022-03-27 19:19] VITALS: BP 118/85; PULSE 99; RESP 16; TEMP 36.4; O2SAT 95
[2022-03-27] MEDS: Gabapentin 300 MG CAPSULE PO (20:09)
[2022-03-27] MEDS: Mirtazapine 15 MG TABLET 45 MG PO (20:09)
[2022-03-27] MEDS: Atorvastatin Calcium 20 MG TABLET PO (20:09)
[2022-03-27] MEDS: QUEtiapine Fumarate 50 MG TABLET PO (20:10)
[2022-03-27] MEDS: Docusate Sodium 100 MG CAPSULE PO (20:10)
[2022-03-27] MEDS: QUEtiapine Fumarate 25 MG TABLET PO (21:33)
[2022-03-27 23:23] VITALS: BP 108/58; PULSE 94; RESP 16; TEMP 36.6; O2SAT 92
--- NOTE | 2022-03-28 06:52 | PC.NURSE ---
Patient slept intermittently, no distress observed/reported, behavior non concerning, medication compliant, disposition per care team section 12 inpatient bed search, received phone call from DEBIBE (Electronic Monitoring Program) Bernard reported ankle monitor went off and mechanical engineering officer notified, VSS, will continue to monitor.
--- NOTE | 2022-03-28 07:31 | PC.NURSE ---
Report from Mitch CHANG. Pt resting quietly in bed at this time. RR reg and even, NAD. Awaiting in-patient bed.
[2022-03-28 09:06] VITALS: BP 99/52; PULSE 76; RESP 15; TEMP 36.8; O2SAT 95
[2022-03-28] MEDS: FLUoxetine HCl 20 MG CAPSULE 40 MG PO (11:15)
[2022-03-28] MEDS: Gabapentin 300 MG CAPSULE PO ×3 (11:15→20:20)
[2022-03-28] MEDS: lisinopriL 10 MG TABLET PO (11:15)
[2022-03-28] MEDS: buPROPion HCl XL 150 MG TAB.ER.24H PO (11:15)
[2022-03-28] MEDS: Omeprazole 20 MG CAPSULE.DR PO (12:50)
--- NOTE | 2022-03-28 12:51 | PC.NURSE ---
pt experiencing reflux/heart burn - per AUG morning 0630 omeprazole was not given. t/w administered unscheduled dose per AUG to help with heart burn
--- NOTE | 2022-03-28 13:13 | PC.NURSE ---
Pt seen this date for individual OT tx. Pt presents tearful and depressed upon approach however polite and receptive to conversation with this SHAWN/L. Pt reports interests include basketball and football when feeing well. Pt reports feeling depressed/hopeless stating I'm so tired life is so hard . Pt provided with positive reinforcement and validation of feelings with good operator receptionist. Pt waiting for inpatient placement at [facility] [place]. Activities provided to engage in wile waiting in POD sensory item, coloring pages, cross word puzzles, and word finds.
[2022-03-28] MEDS: Calcium Carbonate 750 MG TAB.CHEW PO (13:23)
[2022-03-28] MEDS: Acetaminophen 325 MG TABLET 650 MG PO (17:23)
[2022-03-28] MEDS: Buprenorphine/Naloxone 2/0.5mg FILM 1 FILM SUBLINGUAL (17:25)
[2022-03-28] MEDS: QUEtiapine Fumarate 50 MG TABLET PO (20:20)
[2022-03-28] MEDS: Atorvastatin Calcium 20 MG TABLET PO (20:20)
[2022-03-28] MEDS: Ibuprofen 800 MG TABLET PO (20:20)
[2022-03-28] MEDS: Mirtazapine 15 MG TABLET 45 MG PO (20:20)
[2022-03-28] MEDS: Docusate Sodium 100 MG CAPSULE PO (20:20)
[2022-03-28 23:35] VITALS: BP 106/58; PULSE 78; RESP 16; TEMP 36.4; O2SAT 95
--- NOTE | 2022-03-29 02:31 | PC.NURSE ---
Patient awake multiple times asking for food. No distress noted. Will continue to monitor.
--- NOTE | 2022-03-29 05:03 | PC.NURSE ---
Patient came to the nurse station requesting food again, he was redirected about his food intake, he became agitated, screaming to the staff about why he needs food , he was redirected again and he began calling names and using profanity, he was redirected again and he went to his room. Will continue to monitor.
[2022-03-29] MEDS: Omeprazole 20 MG CAPSULE.DR PO (05:27)
[2022-03-29] MEDS: QUEtiapine Fumarate 25 MG TABLET PO ×2 (05:27→18:10)
--- NOTE | 2022-03-29 05:37 | PC.NURSE ---
Patient was up to used the bathroom, he was feeling anxious, seroquel po given with his 6am medication. He was pleasant, he was educated about his UTI and antibiotic, he verbalized understanding. Will continue to monitor.
--- NOTE | 2022-03-29 06:26 | PC.NURSE ---
Patient sleeping comfortable. No distress noted. Will continue to monitor.
[2022-03-29 08:27] VITALS: BP 96/74; PULSE 82; RESP 16; TEMP 36.8; O2SAT 93
--- NOTE | 2022-03-29 09:06 | PC.NURSE ---
Addendum entered by Payam Tejada 03/29/22 10:04: Rechecked patients blood pressure which is still low. Dr. Kenny notified. Instructed to hold lisinopril Original Note: Dr. Kenny aware of patients blood pressure. Will recheck at [address] Kenny
[2022-03-29 09:57] VITALS: BP 96/53; PULSE 81; RESP 16; O2SAT 95
[2022-03-29] MEDS: FLUoxetine HCl 20 MG CAPSULE 40 MG PO (10:01)
[2022-03-29] MEDS: Gabapentin 300 MG CAPSULE PO ×3 (10:01→20:54)
[2022-03-29] MEDS: buPROPion HCl XL 150 MG TAB.ER.24H PO (10:01)
[2022-03-29] MEDS: Buprenorphine/Naloxone 2/0.5mg FILM 1 FILM SUBLINGUAL (15:28)
--- OUTSIDE RECORDS SUMMARY | 2022-03-29 15:36 | XMS_ITS | Continuity of Care Document ---
:1970 Author Organization [facility] Address [address] [place] [address]- Care Team Providers Name Role Phone Mariano Scales NP Primary Care Physician Encounter [facility] Date(s): 03/05/22 - 03/05/[address] [address]- Discharge Disposition: A-D/C Walkout Attending Physician: Not on Staff, Attending MD Admitting Physician: Not on Staff, Admitting MD Referring Physician: Not on Staff, Referring MD Allergies, Adverse Reactions, Alerts Substance Reaction Severity Status Other Environmental Allergy1 Act monica 1wool Medications albuterol 90 mcg/inh inhalation aerosol See Instructions, # 1, Refills 5, Tot. Refills 5, 2 puffs every four hours as needed for shortnes ofbreath or whezzing, 09/07/08 14:50:41 Start Date: 09/07/08 Status: OrderedFish Oil 1000 mg oral capsule 1 capsule = 1,000 mg, By Mouth, Daily, 0 Refills, Maintenance, Capsule Start Date: 03/07/13 Status: Orderedgemfibrozil 600 mg oral tablet 1 tablet = 600 mg, By Mouth, 2 times a day, # 180 tablet, 0 Refills, Maintenance, Tablet Start Date: 03/07/13 Status: Orderedibuprofen 400 mg oral tablet 1 tablet = 400 mg, By Mouth, 2 times a day, 0 Refills, Maintenance Start Date: 03/07/13 Status: Orderedloratadine 10 mg oral tablet 1 tablet = 10 mg, By Mouth, Daily, # 30 tablet, 0 Refills, Maintenance, Tablet Start Date: 03/07/13 Status: Orderedomeprazole 20 mg oral enteric coated capsule 1 capsule = 20 mg, By Mouth, Daily, # 30 capsule, 0 Refills, Maintenance, EC Capsule Start Date: 03/07/13 Status: Ordered Vital Signs Most recent to oldest [Reference Range]: 1 Height 175 cm (03/05/22 12:46 AM) Oxygen Saturation [94-100 %] 97 % (03/05/22 12:45 AM) Pulse Rate [55-90 bpm] 118 bpm *H* (03/05/22 12:45 AM) Blood Pressure [90-138/55-84 mm Hg] 142/110 mm Hg *H* (03/05/22 12:45 AM) Respiratory Rate [16-30 br/min] 16 br/min (03/05/22 12:45 AM) Temperature [96.8-100.4 DegF] 98.2 DegF (03/05/22 12:45 AM) Temperature Route Oral (03/05/22 12:45 AM) Dry Weight 227 kg (03/05/22 12:46 AM) Dry Weight Obtained Via Patient/family stated (03/05/22 12:46 AM) Care Team PersonnelName: Mariano Scales NP Address: [address] [place] [address]
[2022-03-29 18:00] VITALS: BP 161/78; PULSE 100; TEMP 36.4; O2SAT 96
[2022-03-29] MEDS: Acetaminophen 325 MG TABLET 650 MG PO (18:10)
[2022-03-29] MEDS: hydrOXYzine HCL 25 MG TABLET PO (18:10)
--- NOTE | 2022-03-29 19:48 | PC.ADMIT ---
pt is a 52 year old male who was admitted to [facility] ED with SI with a plan. pts PMH includes inpatient psych stays and long stays in skilled nursing. pt is currently wearing an ankle bracelet that has to be charged once a day. during admission, pt appeared to anxious about future. 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 pt wants to meet with the older adult social work specialist named Terrance. pt wants [facility] help, so he can get back on feet. pt was given sequerol and attrax to calm down. start treatment and initiate safety plan.
[2022-03-29] MEDS: QUEtiapine Fumarate 50 MG TABLET PO (20:55)
[2022-03-29] MEDS: Atorvastatin Calcium 20 MG TABLET PO (20:55)
[2022-03-29] MEDS: Mirtazapine 15 MG TABLET 45 MG PO (20:55)
[2022-03-30] MEDS: Omeprazole 20 MG CAPSULE.DR PO (09:06)
[2022-03-30] MEDS: FLUoxetine HCl 20 MG CAPSULE 40 MG PO (09:06)
[2022-03-30] MEDS: lisinopriL 10 MG TABLET PO (09:06)
[2022-03-30] MEDS: buPROPion HCl XL 150 MG TAB.ER.24H PO (09:06)
[2022-03-30] MEDS: Gabapentin 300 MG CAPSULE PO ×3 (09:06→20:19)
[2022-03-30 09:09] VITALS: BP 114/63; PULSE 84; RESP 18; TEMP 36.6; O2SAT 97
[2022-03-30 09:57] LABS: Alanine Aminotransferase 27 U/L (0-40); Albumin Level 3.9 g/dL (3.5-5.0); Alkaline Phosphatase 98 U/L (39-117); Anion Gap 14 (12-20); Aspartate Amino Transferase 37 U/L (5-37); Bilirubin Total < 0.2 mg/dL (0.0-1.0); Blood Urea Nitrogen 16 mg/dL (9-16); Calcium 8.9 mg/dL (8.4-10.2); Carbon Dioxide 21 mmol/L (22-29); Chloride 109 mmol/L (96-108); Cholesterol 122 mg/dL; Creatinine Clr Calc Pharmacy 99.2; Estimated Glomerular Filt Rate > 60; Glucose Fasting 127 mg/dL (60-99); HDL Cholesterol 27 mg/dL; LDL Cholesterol Calculated 39 mg/dl; Magnesium 1.9 mg/dL (1.6-2.6); Sodium 140 mmol/L (135-145); Total Protein 6.7 g/dL (6.5-8.0); Triglycerides 283 mg/dL
[2022-03-30 10:00] LABS: Free T4 (Free Thyroxine) 0.84 ng/dL (0.71-1.85); Thyroid Stimulating Hormone 0.85 uIU/mL (0.32-4.0)
[2022-03-30 10:32] LABS: Folate 13.6 ng/mL (> or = 4.0); Vitamin B12 271 pg/mL (200-900)
[2022-03-30 10:44] LABS: Estimated Average Glucose 114 mg/dL; Hemoglobin A1c % 5.6 %
[2022-03-30 13:25] VITALS: BMI 35.0
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
[2022-03-30] MEDS: Buprenorphine/Naloxone 2/0.5mg FILM 1 FILM SUBLINGUAL (14:24)
[2022-03-30 18:00] VITALS: BP 115/70; PULSE 80; RESP 16; TEMP 36.4; O2SAT 95
[2022-03-30] MEDS: Mirtazapine 15 MG TABLET 45 MG PO (20:19)
[2022-03-30] MEDS: Atorvastatin Calcium 20 MG TABLET PO (20:19)
[2022-03-30] MEDS: QUEtiapine Fumarate 25 MG TABLET PO (23:25)
[2022-03-31] MEDS: Omeprazole 20 MG CAPSULE.DR PO (05:34)
[2022-03-31 06:00] VITALS: BP 147/73; PULSE 75; RESP 16; TEMP 36.7; O2SAT 97
[2022-03-31] MEDS: lisinopriL 10 MG TABLET PO (09:05)
[2022-03-31] MEDS: Gabapentin 300 MG CAPSULE PO ×3 (09:05→19:58)
[2022-03-31] MEDS: Buprenorphine/Naloxone 2/0.5mg FILM 1 FILM SUBLINGUAL (14:14)
--- NOTE | 2022-03-31 14:41 | P.PNPSI_ITS ---
Subjective Subjective Date of Service: 03/31/22 Reason For Visit: Depression,SI,Polysubstance Abuse Interim History: Reports medication changes without adverse effect. Today, pt is discussing what community resources he feels he needs to move forward with success. Medication Compliance: Yes Side effects from medications: No Attending Groups: Yes Review of Systems Acute medical concerns: No Medical Review of Systems: unchanged Mental Status Exam Mental Status Exam Patient Appearance: Appropriate Patient Orientation: Person, Place, Time and Situation Level of Consciousness: Alert Patient Behavior: Talkative, Cooperative and Good Eye Contact Mood Description: Depressed and Anxious Affect Description: Flat Ability to Follow Directions: Good Speech Pattern: Spontaneous Speech Memory Description: Intact Hallucinations: Visual Perceptual Disturbances: Depersonalization and Derealization Thought Process: Goal Oriented Thought Content: positive for Goal Oriented Depressive Symptoms: Feelings of Worthlessness, Isolating-Friends/Family, Tho ughts of /Suicide and Low Self Esteem Abnormal Motor Activity Signs and Symptoms: Restlessness Judgement: Good Diagnostics Vital Signs (24Hr): Vital Signs - 24 hr 03/30/22 18:00 03/31/22 06:00 Temperature 97.5 F 98.1 F Pulse Rate 80 75 Respiratory Rate 16 16 Blood Pressure 115/70 147/73 H Pulse Oximetry 95 97 Oxygen Delivery Method Room Air Room Air BMI result Body Mass Index 35.0 Labs Results: 03/27/22 10:12 03/30/22 08:20 Labs: Laboratory Results - last 48 hr 03/30/22 03/30/22 03/30/22 08:20 08:20 08:20 Sodium 140 Potassium 4.0 Chloride 109 H Carbon Dioxide 21 L Anion Gap 14 BUN 16 Creatinine 1.06 Estim Creat Clear Calc 99.2 Estimated GFR > 60 Fasting Glucose 127 H Estimat Average Glucose 114 Hemoglobin A1c % 5.6 Calcium 8.9 Magnesium 1.9 Total Bilirubin < 0.2 AST 37 ALT 27 Alkaline Phosphatase 98 Total Protein 6.7 Albumin 3.9 Triglycerides 283 Cholesterol 122 LDL Cholesterol, Calc 39 HDL Cholesterol 27 Vitamin B12 271 Folate 13.6 TSH 0.85 Free T4 0.84 Medications Medications Current Medications Acetaminophen (Acetaminophen 325 Mg Tablet) 650 mg PO Q6H PRN PRN Reason: Headache/Pain Mild Scale (1-3) Last Admin: 03/29/22 18:10 Dose: 650 mg Al Hydroxide/Mg Hydroxide (Magnesium Hydrox/Alum Hydrox 30 Ml Oral.Susp) 30 ml PO Q6H PRN PRN Reason: Heartburn/Nausea Atorvastatin Calcium (Atorvastatin Calcium 20 Mg Tablet) 20 mg PO BEDTIME [facility] Last Admin: 03/30/22 20:19 Dose: 20 mg Buprenorphine/Naloxone (Buprenorphine/Naloxone 2/0.5mg Film) 1 film SUBLINGUAL DAILY@1500 [facility] Last Admin: 03/31/22 14:14 Dose: 1 film Cefuroxime Axetil (Cefuroxime Axetil 250 Mg Tablet) 250 mg PO BID [facility] Last Admin: 03/31/22 09:05 Dose: 250 mg Gabapentin (Gabapentin 300 Mg Capsule) 300 mg PO TID [facility] Last Admin: 03/31/22 14:14 Dose: 300 mg Hydroxyzine HCl (Hydroxyzine Hcl 25 Mg Tablet) 25 mg PO Q6H PRN PRN Reason: Anxiety Last Admin: 03/29/22 18:10 Dose: 25 mg Lisinopril (Lisinopril 10 Mg Tablet) 10 mg PO DAILY [facility]; Protocol Last Admin: 03/31/22 09:05 Dose: 10 mg Magnesium Hydroxide (Milk Of Magnesia 30 Ml Oral.Susp) 30 ml PO DAILY PRN PRN Reason: Constipation Mirtazapine (Mirtazapine 15 Mg Tablet) 45 mg PO BEDTIME [facility] Last Admin: 03/30/22 20:19 Dose: 45 mg Nicotine (Nicotine 21 Mg Patch.Td24) 21 mg TRANSDERMA DAILY PRN PRN Reason: nicotine craving Omeprazole (Omeprazole 20 Mg Capsule.Dr) 20 mg PO DAILY@0630 [facility] Last Admin: 03/31/22 05:34 Dose: 20 mg Pharmacy Consult (Consult Rx Perform Med Rec) 1 each MISCELLANE ONCE PRN PRN Reason: Consult order Quetiapine Fumarate (Quetiapine Fumarate 25 Mg Tablet) 25 mg PO Q6H PRN PRN Reason: anxiety/agitation/sleep Last Admin: 03/30/22 23:25 Dose: 25 mg Trazodone HCl (Trazodone Hcl 50 Mg Tablet) 50 mg PO BEDTIME PRN PRN Reason: Insomnia Allergies Allergies Allergy/AdvReac Type Severity Reaction Status Date / Time No Known Allergies Allergy Verified 03/22/22 10:59 [No Known Allergies*] Assessment & Plan Assessment & Plan (1) MDD (major depressive disorder), recurrent episode, moderate: Status: Acute Code(s): F33.1 - Major depressive disorder, recurrent, moderate (2) Post traumatic stress disorder (PTSD): Status: Acute Code(s): F43.10 - Post-traumatic stress disorder, unspecified (3) Opioid use disorder: Status: Acute Code(s): F11.90 - Opioid use, unspecified, uncomplicated (4) Cocaine use disorder: Status: Acute Code(s): F14.10 - Cocaine abuse, uncomplicated Plan 03/31/22- Continue current plan. I spent minutes with the patient and/or on the patient floor today, greater than?50% of which was spent counseling/coordinating care. Patient educated on: medication risk/benefits Informed Consent: understands and further education needed Reason for contiued inpatient stay Substantial Risk for: rapid decompensation
[2022-03-31 18:00] VITALS: BP 118/76; PULSE 82; RESP 16; TEMP 36.6; O2SAT 96
[2022-03-31] MEDS: Atorvastatin Calcium 20 MG TABLET PO (19:58)
[2022-03-31] MEDS: Mirtazapine 15 MG TABLET 45 MG PO (19:58)
[2022-03-31] MEDS: traZODone HCL 50 MG TABLET PO (21:05)
[2022-04-01] MEDS: Omeprazole 20 MG CAPSULE.DR PO (06:05)
[2022-04-01] MEDS: Gabapentin 300 MG CAPSULE PO ×3 (08:28→19:51)
[2022-04-01] MEDS: lisinopriL 10 MG TABLET PO (08:28)
[2022-04-01 08:30] VITALS: BP 126/68; PULSE 75; RESP 18; TEMP 36.7; O2SAT 98
--- NOTE | 2022-04-01 16:00 | HO.PSYCHPN ---
Subjective Subjective Date of Service: 04/01/22 Reason For Visit: Depression,SI,Polysubstance Abuse Subjective Notes: Conditional Voluntary Interim History: Chart reviewed. Discussed with Nursing. Overall no acute issues. Today reports things are going okay. Mood okay. Is hopeful that [facility] support will help him maintain stability in the community. Agreed to [facility] application. Sleep okay. No SI. Asked about medications and side effects and dry mouth. Medication Compliance: Yes Side effects from medications: Yes Attending Groups: Yes Review of Systems Acute medical concerns: No Review of Systems Review of Systems Unremarkable Mental Status Exam Mental Status Exam Narrative: Pleasant. Engaged. Appropriately dressed. With largely euthymic. No SI. No HI. No agitation or psychosis. Insight and judgment fair Diagnostics Vital Signs (24Hr): Vital Signs - 24 hr 03/31/22 18:00 04/01/22 08:30 Temperature 97.8 F 98.0 F Pulse Rate 82 75 Respiratory Rate 16 18 Blood Pressure 118/76 126/68 Pulse Oximetry 96 98 Oxygen Delivery Method Room Air Room Air BMI result Body Mass Index 35.0 Labs Results: 03/27/22 10:12 03/30/22 08:20 Medications Medications Current Medications Acetaminophen (Acetaminophen 325 Mg Tablet) 650 mg PO Q6H PRN PRN Reason: Headache/Pain Mild Scale (1-3) Last Admin: 03/29/22 18:10 Dose: 650 mg Al Hydroxide/Mg Hydroxide (Magnesium Hydrox/Alum Hydrox 30 Ml Oral.Susp) 30 ml PO Q6H PRN PRN Reason: Heartburn/Nausea Atorvastatin Calcium (Atorvastatin Calcium 20 Mg Tablet) 20 mg PO BEDTIME [facility] Last Admin: 03/31/22 19:58 Dose: 20 mg Buprenorphine/Naloxone (Buprenorphine/Naloxone 2/0.5mg Film) 1 film SUBLINGUAL DAILY@1500 [facility] Last Admin: 04/01/22 14:14 Dose: Not Given Cefuroxime Axetil (Cefuroxime Axetil 250 Mg Tablet) 250 mg PO BID [facility] Last Admin: 04/01/22 08:28 Dose: 250 mg Gabapentin (Gabapentin 300 Mg Capsule) 300 mg PO TID [facility] Last Admin: 04/01/22 14:11 Dose: 300 mg Hydroxyzine HCl (Hydroxyzine Hcl 25 Mg Tablet) 25 mg PO Q6H PRN PRN Reason: Anxiety Last Admin: 03/29/22 18:10 Dose: 25 mg Lisinopril (Lisinopril 10 Mg Tablet) 10 mg PO DAILY [facility]; Protocol Last Admin: 04/01/22 08:28 Dose: 10 mg Magnesium Hydroxide (Milk Of Magnesia 30 Ml Oral.Susp) 30 ml PO DAILY PRN PRN Reason: Constipation Mirtazapine (Mirtazapine 15 Mg Tablet) 45 mg PO BEDTIME [facility] Last Admin: 03/31/22 19:58 Dose: 45 mg Nicotine (Nicotine 21 Mg Patch.Td24) 21 mg TRANSDERMA DAILY PRN PRN Reason: nicotine craving Omeprazole (Omeprazole 20 Mg Capsule.Dr) 20 mg PO DAILY@0630 [facility] Last Admin: 04/01/22 06:05 Dose: 20 mg Pharmacy Consult (Consult Rx Perform Med Rec) 1 each MISCELLANE ONCE PRN PRN Reason: Consult order Quetiapine Fumarate (Quetiapine Fumarate 25 Mg Tablet) 25 mg PO Q6H PRN PRN Reason: anxiety/agitation/sleep Last Admin: 03/30/22 23:25 Dose: 25 mg Trazodone HCl (Trazodone Hcl 50 Mg Tablet) 50 mg PO BEDTIME PRN PRN Reason: Insomnia Last Admin: 03/31/22 21:05 Dose: 50 mg Allergies Allergies Allergy/AdvReac Type Severity Reaction Status Date / Time No Known Allergies Allergy Verified 03/22/22 10:59 [No Known Allergies*] Assessment & Plan Assessment & Plan (1) MDD (major depressive disorder), recurrent episode, moderate: Status: Acute Code(s): F33.1 - Major depressive disorder, recurrent, moderate (2) Post traumatic stress disorder (PTSD): Status: Acute Code(s): F43.10 - Post-traumatic stress disorder, unspecified (3) Opioid use disorder: Status: Acute Code(s): F11.90 - Opioid use, unspecified, uncomplicated (4) Cocaine use disorder: Status: Acute Code(s): F14.10 - Cocaine abuse, uncomplicated Plan 03/31/22- Continue current plan. 04/01/2022 no changes to current plan. Exploring [facility] support I spent minutes with the patient and/or on the patient floor today, greater than?50% of which was spent counseling/coordinating care. Reason for contiued inpatient stay Substantial Risk for: rapid decompensation
[2022-04-01 18:00] VITALS: BP 172/57; PULSE 119; RESP 16; TEMP 36.1
[2022-04-01] MEDS: Atorvastatin Calcium 20 MG TABLET PO (19:51)
[2022-04-01] MEDS: Mirtazapine 15 MG TABLET 45 MG PO (19:51)
[2022-04-02] MEDS: Omeprazole 20 MG CAPSULE.DR PO (05:42)
[2022-04-02 06:00] VITALS: BP 132/76; PULSE 99; RESP 16; TEMP 36.7; O2SAT 100
[2022-04-02] MEDS: Gabapentin 300 MG CAPSULE PO ×3 (09:53→20:09)
[2022-04-02] MEDS: lisinopriL 10 MG TABLET PO (09:55)
--- NOTE | 2022-04-02 12:56 | HO.PSYCHPN ---
Subjective Subjective Date of Service: 04/02/22 Reason For Visit: Depression,SI,Polysubstance Abuse Subjective Notes: Conditional Voluntary Interim History: Chart reviewed. Discussed with Nursing- has not been taking Suboxone reports wanting to come off same. Current doses low i.e. 2 mg. Overall no acute issues. Today reports things are going okay. Mood okay. Sleep okay. No SI. Medication Compliance: Yes Side effects from medications: No Attending Groups: Yes Review of Systems Acute medical concerns: No Review of Systems Review of Systems Unremarkable Mental Status Exam Mental Status Exam Narrative: Pleasant. Engaged. Appropriately dressed. Largely euthymic. No SI. No HI. No agitation or psychosis. Insight and judgment fair Diagnostics Vital Signs (24Hr): Vital Signs - 24 hr 04/01/22 18:00 04/02/22 06:00 Temperature 97 F 98.1 F Pulse Rate 119 H 99 Respiratory Rate 16 16 Blood Pressure 172/57 H 132/76 Pulse Oximetry 100 Oxygen Delivery Method Room Air BMI result Body Mass Index 35.0 Labs Results: 03/27/22 10:12 03/30/22 08:20 Medications Medications Current Medications Acetaminophen (Acetaminophen 325 Mg Tablet) 650 mg PO Q6H PRN PRN Reason: Headache/Pain Mild Scale (1-3) Last Admin: 03/29/22 18:10 Dose: 650 mg Al Hydroxide/Mg Hydroxide (Magnesium Hydrox/Alum Hydrox 30 Ml Oral.Susp) 30 ml PO Q6H PRN PRN Reason: Heartburn/Nausea Atorvastatin Calcium (Atorvastatin Calcium 20 Mg Tablet) 20 mg PO BEDTIME [facility] Last Admin: 04/01/22 19:51 Dose: 20 mg Buprenorphine/Naloxone (Buprenorphine/Naloxone 2/0.5mg Film) 1 film SUBLINGUAL DAILY@1500 [facility] Last Admin: 04/01/22 14:14 Dose: Not Given Cefuroxime Axetil (Cefuroxime Axetil 250 Mg Tablet) 250 mg PO BID [facility] Last Admin: 04/02/22 09:53 Dose: 250 mg Gabapentin (Gabapentin 300 Mg Capsule) 300 mg PO TID [facility] Last Admin: 04/02/22 09:53 Dose: 300 mg Hydroxyzine HCl (Hydroxyzine Hcl 25 Mg Tablet) 25 mg PO Q6H PRN PRN Reason: Anxiety Last Admin: 03/29/22 18:10 Dose: 25 mg Lisinopril (Lisinopril 10 Mg Tablet) 10 mg PO DAILY [facility]; Protocol Last Admin: 04/02/22 09:55 Dose: 10 mg Magnesium Hydroxide (Milk Of Magnesia 30 Ml Oral.Susp) 30 ml PO DAILY PRN PRN Reason: Constipation Mirtazapine (Mirtazapine 15 Mg Tablet) 45 mg PO BEDTIME [facility] Last Admin: 04/01/22 19:51 Dose: 45 mg Nicotine (Nicotine 21 Mg Patch.Td24) 21 mg TRANSDERMA DAILY PRN PRN Reason: nicotine craving Omeprazole (Omeprazole 20 Mg Capsule.Dr) 20 mg PO DAILY@0630 [facility] Last Admin: 04/02/22 05:42 Dose: 20 mg Pharmacy Consult (Consult Rx Perform Med Rec) 1 each MISCELLANE ONCE PRN PRN Reason: Consult order Quetiapine Fumarate (Quetiapine Fumarate 25 Mg Tablet) 25 mg PO Q6H PRN PRN Reason: anxiety/agitation/sleep Last Admin: 03/30/22 23:25 Dose: 25 mg Trazodone HCl (Trazodone Hcl 50 Mg Tablet) 50 mg PO BEDTIME PRN PRN Reason: Insomnia Last Admin: 03/31/22 21:05 Dose: 50 mg Allergies Allergies Allergy/AdvReac Type Severity Reaction Status Date / Time No Known Allergies Allergy Verified 03/22/22 10:59 [No Known Allergies*] Assessment & Plan Assessment & Plan (1) MDD (major depressive disorder), recurrent episode, moderate: Status: Acute Code(s): F33.1 - Major depressive disorder, recurrent, moderate (2) Post traumatic stress disorder (PTSD): Status: Acute Code(s): F43.10 - Post-traumatic stress disorder, unspecified (3) Opioid use disorder: Status: Acute Code(s): F11.90 - Opioid use, unspecified, uncomplicated (4) Cocaine use disorder: Status: Acute Code(s): F14.10 - Cocaine abuse, uncomplicated Plan 03/31/22- Continue current plan. 04/01/2022 no changes to current plan. Exploring [facility] support 04/02/2022: Discontinue Suboxone as has not been taking 2 mg and reports wanting to come off same I spent minutes with the patient and/or on the patient floor today, greater than?50% of which was spent counseling/coordinating care. Reason for contiued inpatient stay Substantial Risk for: rapid decompensation
[2022-04-02] MEDS: Buprenorphine/Naloxone 2/0.5mg FILM 1 FILM SUBLINGUAL (14:01)
[2022-04-02] MEDS: Acetaminophen 325 MG TABLET 650 MG PO ×2 (14:02→21:17)
[2022-04-02 16:03] VITALS: BP 122/82; PULSE 112
[2022-04-02] MEDS: Mirtazapine 15 MG TABLET 45 MG PO (20:09)
[2022-04-02] MEDS: Atorvastatin Calcium 20 MG TABLET PO (20:09)
[2022-04-02] MEDS: QUEtiapine Fumarate 25 MG TABLET PO (21:17)
[2022-04-03] MEDS: Omeprazole 20 MG CAPSULE.DR PO (04:45)
[2022-04-03 06:00] VITALS: BP 126/80; PULSE 91; RESP 18
[2022-04-03] MEDS: lisinopriL 10 MG TABLET PO (08:35)
[2022-04-03] MEDS: Gabapentin 300 MG CAPSULE PO ×3 (08:35→20:11)
[2022-04-03] MEDS: FLUoxetine HCl Oral Solution 20 MG/5 ML SOLUTION 10 MG PO (11:12)
--- NOTE | 2022-04-03 12:59 | P.PNPSI_ITS ---
Subjective Subjective Date of Service: 04/03/22 Reason For Visit: Depression,SI,Polysubstance Abuse Subjective Notes: Conditional Voluntary Healthcare Proxy: No Guardianship: No Medical Problems Affecting Mental Status: No Interim History: Pt reports SI, inability to live out of an institutionalized setting. What do I do?-kill myself or do something to go back in? I don't want to go back in. Discussed current needs and options. [facility] group homes are not available due to post pandemic waits-pt verbalized understanding but states he needs significant structure in his day and help in learning to live out here-it is very different-I don't know the rules. Discussed post incarceration re-entry programs. Pt agrees to referral but they have not been useful in the past. Discussed respite, partial hospital, recovery coaching, [facility] referral via [facility]. Full med review. Prozac re-instated at 10 mg daily and Seroquel at 50 mg hs. Reports RLS sx. will initiate trial for sx mgt. Pt aksing if a sober home would be appropriate. Will review with team. Medication Compliance: Yes Side effects from medications: No Attending Groups: Intermittent Review of Systems Acute medical concerns: No Medical Review of Systems: unchanged Mental Status Exam Mental Status Exam Patient Appearance: Appropriate Patient Orientation: Person, Place, Time and Situation Level of Consciousness: Alert Patient Behavior: Talkative and Good Eye Contact Mood Description: Depressed, Fearful, Anxious, Nervous and Apprehensive Affect Description: Constricted Patient Cognition Impaired: No Ability to Follow Directions: Good Speech Pattern: Spontaneous Speech Memory Description: Episodic Impaired Hallucinations: None Delusions: Not Present Perceptual Disturbances: Depersonalization and Derealization Thought Process: Distracted and Rumination Thought Content: positive for [place], positive for Circumstantial, positive for Perseveration and positive for Suicidal Ideation Depressive Symptoms: Increased Anxiety, Diff. Making Decisions, Increased Irritability, Loss of Int. in Activity, Feelings of Worthlessness, Hopelessness, Isolating-Friends/Family, Feelings of Guilt, Unhappiness, Thoughts of /Suicide, Low Self Esteem, Loss of Energy and Difficulty Concentrating Abnormal Motor Activity Signs and Symptoms: Restlessness Judgement: Fair Diagnostics Vital Signs (24Hr): Vital Signs - 24 hr 04/02/22 16:03 04/03/22 06:00 Pulse Rate 112 H 91 Respiratory Rate 18 Blood Pressure 122/82 126/80 Oxygen Delivery Method Room Air BMI result Body Mass Index 35.0 Labs Results: 03/27/22 10:12 03/30/22 08:20 Medications Medications Current Medications Acetaminophen (Acetaminophen 325 Mg Tablet) 650 mg PO Q6H PRN PRN Reason: Headache/Pain Mild Scale (1-3) Last Admin: 04/02/22 21:17 Dose: 650 mg Al Hydroxide/Mg Hydroxide (Magnesium Hydrox/Alum Hydrox 30 Ml Oral.Susp) 30 ml PO Q6H PRN PRN Reason: Heartburn/Nausea Atorvastatin Calcium (Atorvastatin Calcium 20 Mg Tablet) 20 mg PO BEDTIME [facility] Last Admin: 04/02/22 20:09 Dose: 20 mg Buprenorphine/Naloxone (Buprenorphine/Naloxone 2/0.5mg Film) 1 film SUBLINGUAL DAILY@1500 [facility] Last Admin: 04/02/22 14:01 Dose: 1 film Cefuroxime Axetil (Cefuroxime Axetil 250 Mg Tablet) 250 mg PO BID [facility] Last Admin: 04/03/22 08:35 Dose: 250 mg Fluoxetine HCl (Fluoxetine Hcl Oral Solution 20 Mg/5 Ml Solution) 10 mg PO DAILY [facility] Last Admin: 04/03/22 11:12 Dose: 10 mg Gabapentin (Gabapentin 300 Mg Capsule) 300 mg PO TID [facility] Last Admin: 04/03/22 08:35 Dose: 300 mg Hydroxyzine HCl (Hydroxyzine Hcl 25 Mg Tablet) 25 mg PO Q6H PRN PRN Reason: Anxiety Last Admin: 03/29/22 18:10 Dose: 25 mg Lisinopril (Lisinopril 10 Mg Tablet) 10 mg PO DAILY [facility]; Protocol Last Admin: 04/03/22 08:35 Dose: 10 mg Magnesium Hydroxide (Milk Of Magnesia 30 Ml Oral.Susp) 30 ml PO DAILY PRN PRN Reason: Constipation Mirtazapine (Mirtazapine 15 Mg Tablet) 45 mg PO BEDTIME [facility] Last Admin: 04/02/22 20:09 Dose: 45 mg Nicotine (Nicotine 21 Mg Patch.Td24) 21 mg TRANSDERMA DAILY PRN PRN Reason: nicotine craving Omeprazole (Omeprazole 20 Mg Capsule.Dr) 20 mg PO DAILY@0630 [facility] Last Admin: 04/03/22 04:45 Dose: 20 mg Pharmacy Consult (Consult Rx Perform Med Rec) 1 each MISCELLANE ONCE PRN PRN Reason: Consult order Quetiapine Fumarate (Quetiapine Fumarate 25 Mg Tablet) 25 mg PO Q6H PRN PRN Reason: anxiety/agitation/sleep Last Admin: 04/02/22 21:17 Dose: 25 mg Quetiapine Fumarate (Quetiapine Fumarate 50 Mg Tablet) 50 mg PO BEDTIME [facility] Ropinirole HCl (Ropinirole Hcl 0.5 Mg Tablet) 0.5 mg PO BEDTIME [facility] Trazodone HCl (Trazodone Hcl 50 Mg Tablet) 50 mg PO BEDTIME PRN PRN Reason: Insomnia Last Admin: 03/31/22 21:05 Dose: 50 mg Allergies Allergies Allergy/AdvReac Type Severity Reaction Status Date / Time No Known Allergies Allergy Verified 03/22/22 10:59 [No Known Allergies*] Assessment & Plan Assessment & Plan (1) MDD (major depressive disorder), recurrent episode, moderate: Status: Acute Code(s): F33.1 - Major depressive disorder, recurrent, moderate (2) Post traumatic stress disorder (PTSD): Status: Acute Code(s): F43.10 - Post-traumatic stress disorder, unspecified (3) Opioid use disorder: Status: Acute Code(s): F11.90 - Opioid use, unspecified, uncomplicated (4) Cocaine use disorder: Status: Acute Code(s): F14.10 - Cocaine abuse, uncomplicated Plan 03/31/22- Continue current plan. 04/01/2022 no changes to current plan. Exploring [facility] support 04/02/2022: Discontinue Suboxone as has not been taking 2 mg and reports wanting to come off same 04/03/22: Prozac 10 mg daily Seroquel 50 mg hs Requip 0.5 mg hs- RLS sx. Current SI, feeling he cannot live in community without complete structure. Will research resources. I spent minutes with the patient and/or on the patient floor today, greater than?50% of which was spent counseling/coordinating care. Patient educated on: medication risk/benefits and therapeutic strategies Informed Consent: understands and further education needed Reason for contiued inpatient stay Substantial Risk for: harm to self, harm to others, inability to function and rapid decompensation
[2022-04-03] MEDS: Buprenorphine/Naloxone 2/0.5mg FILM 1 FILM SUBLINGUAL (14:17)
[2022-04-03 18:00] VITALS: RESP 16
[2022-04-03] MEDS: Mirtazapine 15 MG TABLET 45 MG PO (20:12)
[2022-04-03] MEDS: Atorvastatin Calcium 20 MG TABLET PO (20:12)
[2022-04-03] MEDS: rOPINIRole HCL 0.5 MG TABLET PO (20:12)
[2022-04-03] MEDS: QUEtiapine Fumarate 50 MG TABLET PO (20:12)
[2022-04-04] MEDS: Omeprazole 20 MG CAPSULE.DR PO (05:48)
[2022-04-04 06:00] VITALS: BP 132/92; PULSE 96; RESP 16; TEMP 36.9; O2SAT 96
[2022-04-04] MEDS: Gabapentin 300 MG CAPSULE PO ×3 (08:48→20:33)
[2022-04-04] MEDS: FLUoxetine HCl 10 MG CAPSULE PO (08:48)
[2022-04-04] MEDS: lisinopriL 10 MG TABLET PO (08:48)
[2022-04-04] MEDS: Buprenorphine/Naloxone 2/0.5mg FILM 1 FILM SUBLINGUAL (14:16)
--- NOTE | 2022-04-04 14:55 | HO.PSYCHPN ---
Subjective Subjective Date of Service: 04/04/22 Reason For Visit: Depression,SI,Polysubstance Abuse Subjective Notes: Conditional Voluntary Healthcare Proxy: No Guardianship: No Medical Problems Affecting Mental Status: No Interim History: Robin is more open today regarding resources and options. My daughter called to check in and she said that they are happy I am getting help, but, the [facility] and the hospital knows me better than my family and they believe that is wrong-they want me to come home. Discussed ADHD history and use of Adderall. Discussed talking with a provider last evening who encouraged him he reports to ask for this upon discharge. Discussed with pt. Medication Compliance: Yes Side effects from medications: No Attending Groups: Intermittent Review of Systems Acute medical concerns: No Medical Review of Systems: unchanged Mental Status Exam Mental Status Exam Patient Appearance: Appropriate Patient Orientation: Person, Place, Time and Situation Level of Consciousness: Alert Patient Behavior: Talkative and Good Eye Contact Mood Description: Depressed, Anxious and Apprehensive Affect Description: Apprehensive Patient Cognition Impaired: No Ability to Follow Directions: Good Speech Pattern: Spontaneous Speech Memory Description: Intact Hallucinations: None Delusions: Not Present Perceptual Disturbances: Depersonalization and Derealization Thought Process: Rumination Thought Content: positive for Circumstantial Depressive Symptoms: Diff. Making Decisions, Loss of Int. in Activity, Isolating-Friends/Family, Feelings of Guilt and Low Self Esteem Abnormal Motor Activity Signs and Symptoms: Restlessness Judgement: Good Diagnostics Vital Signs (24Hr): Vital Signs - 24 hr 04/03/22 18:00 04/04/22 06:00 Temperature 98.4 F Pulse Rate 96 Respiratory Rate 16 16 Blood Pressure 132/92 H Pulse Oximetry 96 Oxygen Delivery Method Room Air BMI result Body Mass Index 35.0 Labs Results: 03/27/22 10:12 03/30/22 08:20 Medications Medications Current Medications Acetaminophen (Acetaminophen 325 Mg Tablet) 650 mg PO Q6H PRN PRN Reason: Headache/Pain Mild Scale (1-3) Last Admin: 04/02/22 21:17 Dose: 650 mg Al Hydroxide/Mg Hydroxide (Magnesium Hydrox/Alum Hydrox 30 Ml Oral.Susp) 30 ml PO Q6H PRN PRN Reason: Heartburn/Nausea Atorvastatin Calcium (Atorvastatin Calcium 20 Mg Tablet) 20 mg PO BEDTIME [facility] Last Admin: 04/03/22 20:12 Dose: 20 mg Buprenorphine/Naloxone (Buprenorphine/Naloxone 2/0.5mg Film) 1 film SUBLINGUAL DAILY@1500 [facility] Last Admin: 04/04/22 14:16 Dose: 1 film Cefuroxime Axetil (Cefuroxime Axetil 250 Mg Tablet) 250 mg PO BID [facility] Last Admin: 04/04/22 08:48 Dose: 250 mg Fluoxetine HCl (Fluoxetine Hcl 10 Mg Capsule) 10 mg PO DAILY [facility] Last Admin: 04/04/22 08:48 Dose: 10 mg Gabapentin (Gabapentin 300 Mg Capsule) 300 mg PO TID [facility] Last Admin: 04/04/22 14:16 Dose: 300 mg Hydroxyzine HCl (Hydroxyzine Hcl 25 Mg Tablet) 25 mg PO Q6H PRN PRN Reason: Anxiety Last Admin: 03/29/22 18:10 Dose: 25 mg Lisinopril (Lisinopril 10 Mg Tablet) 10 mg PO DAILY [facility]; Protocol Last Admin: 04/04/22 08:48 Dose: 10 mg Magnesium Hydroxide (Milk Of Magnesia 30 Ml Oral.Susp) 30 ml PO DAILY PRN PRN Reason: Constipation Mirtazapine (Mirtazapine 15 Mg Tablet) 45 mg PO BEDTIME [facility] Last Admin: 04/03/22 20:12 Dose: 45 mg Nicotine (Nicotine 21 Mg Patch.Td24) 21 mg TRANSDERMA DAILY PRN PRN Reason: nicotine craving Omeprazole (Omeprazole 20 Mg Capsule.Dr) 20 mg PO DAILY@0630 [facility] Last Admin: 04/04/22 05:48 Dose: 20 mg Pharmacy Consult (Consult Rx Perform Med Rec) 1 each MISCELLANE ONCE PRN PRN Reason: Consult order Quetiapine Fumarate (Quetiapine Fumarate 25 Mg Tablet) 25 mg PO Q6H PRN PRN Reason: anxiety/agitation/sleep Last Admin: 04/02/22 21:17 Dose: 25 mg Quetiapine Fumarate (Quetiapine Fumarate 50 Mg Tablet) 50 mg PO BEDTIME [facility] Last Admin: 04/03/22 20:12 Dose: 50 mg Ropinirole HCl (Ropinirole Hcl 0.5 Mg Tablet) 0.5 mg PO BEDTIME [facility] Last Admin: 04/03/22 20:12 Dose: 0.5 mg Trazodone HCl (Trazodone Hcl 50 Mg Tablet) 50 mg PO BEDTIME PRN PRN Reason: Insomnia Last Admin: 03/31/22 21:05 Dose: 50 mg Allergies Allergies Allergy/AdvReac Type Severity Reaction Status Date / Time No Known Allergies Allergy Verified 03/22/22 10:59 [No Known Allergies*] Assessment & Plan Assessment & Plan (1) MDD (major depressive disorder), recurrent episode, moderate: Status: Acute Code(s): F33.1 - Major depressive disorder, recurrent, moderate (2) Post traumatic stress disorder (PTSD): Status: Acute Code(s): F43.10 - Post-traumatic stress disorder, unspecified (3) Opioid use disorder: Status: Acute Code(s): F11.90 - Opioid use, unspecified, uncomplicated (4) Cocaine use disorder: Status: Acute Code(s): F14.10 - Cocaine abuse, uncomplicated Plan 03/31/22- Continue current plan. 04/01/2022 no changes to current plan. Exploring [facility] support 04/02/2022: Discontinue Suboxone as has not been taking 2 mg and reports wanting to come off same 04/03/22: Prozac 10 mg daily Seroquel 50 mg hs Requip 0.5 mg hs- RLS sx. Current SI, feeling he cannot live in community without complete structure. Will research resources. 04/04/22: Improved today-willing to look at post incarceration options. I need to put the work into this. Family is a strong motivator for pt. I spent minutes with the patient and/or on the patient floor today, greater than?50% of which was spent counseling/coordinating care. Patient educated on: medication risk/benefits and therapeutic strategies Informed Consent: understands and further education needed Reason for contiued inpatient stay Substantial Risk for: harm to self, inability to function and rapid decompensation
[2022-04-04 18:00] VITALS: BP 123/77; PULSE 90; RESP 18; O2SAT 96
[2022-04-04] MEDS: QUEtiapine Fumarate 50 MG TABLET PO (20:33)
[2022-04-04] MEDS: rOPINIRole HCL 0.5 MG TABLET PO (20:33)
[2022-04-04] MEDS: Atorvastatin Calcium 20 MG TABLET PO (20:33)
[2022-04-04] MEDS: Mirtazapine 15 MG TABLET 45 MG PO (20:33)
[2022-04-05] MEDS: Omeprazole 20 MG CAPSULE.DR PO (06:26)
[2022-04-05] MEDS: lisinopriL 10 MG TABLET PO (08:58)
[2022-04-05] MEDS: Gabapentin 300 MG CAPSULE PO ×3 (08:58→20:17)
[2022-04-05] MEDS: FLUoxetine HCl 10 MG CAPSULE PO (08:58)
[2022-04-05 08:59] VITALS: BP 118/79; PULSE 97; RESP 20; TEMP 36.7; O2SAT 96
[2022-04-05] MEDS: Buprenorphine/Naloxone 2/0.5mg FILM 1 FILM SUBLINGUAL (14:42)
--- NOTE | 2022-04-05 15:07 | HO.PSYCHPN ---
Subjective Subjective Date of Service: 04/05/22 Reason For Visit: Depression,SI,Polysubstance Abuse Subjective Notes: Conditional Voluntary Healthcare Proxy: No Guardianship: No Medical Problems Affecting Mental Status: No Interim History: Struggling with referral resources. Wanting a [facility] alf which is not available at this time. Further discussion of [facility] ([facility]) for ex-offenders. Reviewed services offered on [employer] with pt and encouraged pt to enroll again as the program offers comprehensive services. I suppose I will get out of it what I put into it. Applications are pending pt reports with [facility] and interview with [facility] and [facility] are also pending. Overall, pt feeling improved he reports with OP options. Medication Compliance: Yes Side effects from medications: No Attending Groups: Yes Review of Systems Acute medical concerns: No Medical Review of Systems: unchanged Mental Status Exam Mental Status Exam Patient Appearance: Appropriate Patient Orientation: Person, Place, Time and Situation Level of Consciousness: Alert Patient Behavior: Talkative and Good Eye Contact Mood Description: Depressed, Anxious and Apprehensive Affect Description: Apprehensive Patient Cognition Impaired: No Ability to Follow Directions: Good Speech Pattern: Spontaneous Speech Memory Description: Intact Hallucinations: None Delusions: Not Present Perceptual Disturbances: Depersonalization and Derealization Thought Process: Rumination Thought Content: positive for Circumstantial Depressive Symptoms: Diff. Making Decisions, Loss of Int. in Activity, Isolating-Friends/Family, Feelings of Guilt and Low Self Esteem Abnormal Motor Activity Signs and Symptoms: Restlessness Judgement: Good Diagnostics Vital Signs (24Hr): Vital Signs - 24 hr 04/04/22 18:00 04/05/22 08:59 Temperature 98.1 F Pulse Rate 90 97 Respiratory Rate 18 20 Blood Pressure 123/77 118/79 Pulse Oximetry 96 96 Oxygen Delivery Method Room Air Room Air BMI result Body Mass Index 35.0 Labs Results: 03/27/22 10:12 03/30/22 08:20 Medications Medications Current Medications Acetaminophen (Acetaminophen 325 Mg Tablet) 650 mg PO Q6H PRN PRN Reason: Headache/Pain Mild Scale (1-3) Last Admin: 04/02/22 21:17 Dose: 650 mg Al Hydroxide/Mg Hydroxide (Magnesium Hydrox/Alum Hydrox 30 Ml Oral.Susp) 30 ml PO Q6H PRN PRN Reason: Heartburn/Nausea Atorvastatin Calcium (Atorvastatin Calcium 20 Mg Tablet) 20 mg PO BEDTIME [facility] Last Admin: 04/04/22 20:33 Dose: 20 mg Buprenorphine/Naloxone (Buprenorphine/Naloxone 2/0.5mg Film) 1 film SUBLINGUAL DAILY@1500 [facility] Last Admin: 04/05/22 14:42 Dose: 1 film Cefuroxime Axetil (Cefuroxime Axetil 250 Mg Tablet) 250 mg PO BID [facility] Last Admin: 04/05/22 08:58 Dose: 250 mg Fluoxetine HCl (Fluoxetine Hcl 10 Mg Capsule) 10 mg PO DAILY [facility] Last Admin: 04/05/22 08:58 Dose: 10 mg Gabapentin (Gabapentin 300 Mg Capsule) 300 mg PO TID [facility] Last Admin: 04/05/22 14:42 Dose: 300 mg Hydroxyzine HCl (Hydroxyzine Hcl 25 Mg Tablet) 25 mg PO Q6H PRN PRN Reason: Anxiety Last Admin: 03/29/22 18:10 Dose: 25 mg Lisinopril (Lisinopril 10 Mg Tablet) 10 mg PO DAILY [facility]; Protocol Last Admin: 04/05/22 08:58 Dose: 10 mg Magnesium Hydroxide (Milk Of Magnesia 30 Ml Oral.Susp) 30 ml PO DAILY PRN PRN Reason: Constipation Mirtazapine (Mirtazapine 15 Mg Tablet) 45 mg PO BEDTIME [facility] Last Admin: 04/04/22 20:33 Dose: 45 mg Nicotine (Nicotine 21 Mg Patch.Td24) 21 mg TRANSDERMA DAILY PRN PRN Reason: nicotine craving Omeprazole (Omeprazole 20 Mg Capsule.Dr) 20 mg PO DAILY@0630 [facility] Last Admin: 04/05/22 06:26 Dose: 20 mg Pharmacy Consult (Consult Rx Perform Med Rec) 1 each MISCELLANE ONCE PRN PRN Reason: Consult order Quetiapine Fumarate (Quetiapine Fumarate 25 Mg Tablet) 25 mg PO Q6H PRN PRN Reason: anxiety/agitation/sleep Last Admin: 04/02/22 21:17 Dose: 25 mg Quetiapine Fumarate (Quetiapine Fumarate 50 Mg Tablet) 50 mg PO BEDTIME [facility] Last Admin: 04/04/22 20:33 Dose: 50 mg Ropinirole HCl (Ropinirole Hcl 0.5 Mg Tablet) 0.5 mg PO BEDTIME [facility] Last Admin: 04/04/22 20:33 Dose: 0.5 mg Saliva Substitute (Dry Mouth [place] 60 Ml [place]) 1 spray MUCOUS MEM Q2H PRN PRN Reason: dry mouth Trazodone HCl (Trazodone Hcl 50 Mg Tablet) 50 mg PO BEDTIME PRN PRN Reason: Insomnia Last Admin: 03/31/22 21:05 Dose: 50 mg Allergies Allergies Allergy/AdvReac Type Severity Reaction Status Date / Time No Known Allergies Allergy Verified 03/22/22 10:59 [No Known Allergies*] Assessment & Plan Assessment & Plan (1) MDD (major depressive disorder), recurrent episode, moderate: Status: Acute Code(s): F33.1 - Major depressive disorder, recurrent, moderate (2) Post traumatic stress disorder (PTSD): Status: Acute Code(s): F43.10 - Post-traumatic stress disorder, unspecified (3) Opioid use disorder: Status: Acute Code(s): F11.90 - Opioid use, unspecified, uncomplicated (4) Cocaine use disorder: Status: Acute Code(s): F14.10 - Cocaine abuse, uncomplicated Plan 03/31/22- Continue current plan. 04/01/2022 no changes to current plan. Exploring [facility] support 04/02/2022: Discontinue Suboxone as has not been taking 2 mg and reports wanting to come off same 04/03/22: Prozac 10 mg daily Seroquel 50 mg hs Requip 0.5 mg hs- RLS sx. Current SI, feeling he cannot live in community without complete structure. Will research resources. 04/04/22: Improved today-willing to look at post incarceration options. I need to put the work into this. Family is a strong motivator for pt. 04/05/22: Continue current plan. I spent minutes with the patient and/or on the patient floor today, greater than?50% of which was spent counseling/coordinating care. Patient educated on: therapeutic strategies Informed Consent: understands Reason for contiued inpatient stay Substantial Risk for: rapid decompensation
[2022-04-05 18:00] VITALS: BP 139/100; PULSE 123; RESP 20; TEMP 36.2; O2SAT 95
[2022-04-05] MEDS: QUEtiapine Fumarate 25 MG TABLET PO (18:28)
--- NOTE | 2022-04-05 19:40 | MHC.RECOVSUP ---
? Reason for consult Recovery Support o Current location: [facility] o Identified substance use concern: Heroin - Support ? Intervention: <del>o</del> <del>ATS</del> <del>bed</del> <del>search</del> <del>started/completed/in</del> <del>process</del> <del>o</del> <del>MAT</del> <del>started</del> <del>or</del> <del>to</del> <del>be</del> <del>started</del> o Community resources provided o Harm reduction discussion ? Plan: o <del>Referral</del> <del>to</del> <del>[facility]</del> <del>o</del> <del>Bed</del> <del>search</del> <del>in</del> <del>progress</del> <del>to</del> <del>o</del> <del>Follow</del> <del>up</del> <del>tomorrow</del> o Patient awaiting crisis evaluation o Patient to follow up with [facility] after discharge ? Additional information: Met with Patient and talked recovery and Harm reduction... Client want to network with people in recovery... Recourse was given to patient
[2022-04-05] MEDS: Atorvastatin Calcium 20 MG TABLET PO (20:17)
[2022-04-05] MEDS: traZODone HCL 50 MG TABLET PO (20:18)
[2022-04-05] MEDS: QUEtiapine Fumarate 50 MG TABLET PO (20:18)
[2022-04-05] MEDS: Mirtazapine 15 MG TABLET 45 MG PO (20:18)
[2022-04-05] MEDS: rOPINIRole HCL 0.5 MG TABLET PO (23:34)
[2022-04-06] MEDS: Omeprazole 20 MG CAPSULE.DR PO (06:14)
[2022-04-06] MEDS: FLUoxetine HCl 10 MG CAPSULE PO (08:35)
[2022-04-06] MEDS: Gabapentin 300 MG CAPSULE PO ×3 (08:35→19:52)
[2022-04-06] MEDS: lisinopriL 10 MG TABLET PO (08:35)
[2022-04-06 08:44] VITALS: BP 110/62; PULSE 80; RESP 18; TEMP 36.6; O2SAT 95
[2022-04-06] MEDS: Nicotine 21 MG PATCH.TD24 TRANSDERMA (13:23)
[2022-04-06] MEDS: Buprenorphine/Naloxone 2/0.5mg FILM 1 FILM SUBLINGUAL (14:24)
[2022-04-06] MEDS: QUEtiapine Fumarate 25 MG TABLET PO (14:54)
[2022-04-06 18:30] VITALS: BP 131/58; PULSE 104
[2022-04-06] MEDS: Mirtazapine 15 MG TABLET 45 MG PO (19:51)
[2022-04-06] MEDS: Atorvastatin Calcium 20 MG TABLET PO (19:51)
[2022-04-06] MEDS: traZODone HCL 50 MG TABLET PO (19:52)
[2022-04-06] MEDS: QUEtiapine Fumarate 50 MG TABLET PO (19:52)
[2022-04-06] MEDS: rOPINIRole HCL 0.5 MG TABLET PO (19:52)
[2022-04-07] MEDS: Omeprazole 20 MG CAPSULE.DR PO (06:27)
[2022-04-07] MEDS: FLUoxetine HCl 10 MG CAPSULE PO (09:43)
[2022-04-07] MEDS: lisinopriL 10 MG TABLET PO (09:43)
[2022-04-07] MEDS: Gabapentin 300 MG CAPSULE PO ×2 (09:43→14:13)
[2022-04-07 09:47] VITALS: BP 125/74; PULSE 93; RESP 18; TEMP 36.4; O2SAT 97
[2022-04-07 10:32] LABS: COVID-19 Test Negative (Negative); IDNOW Serial# 9DD0AD1C
[2022-04-07] MEDS: Buprenorphine/Naloxone 2/0.5mg FILM 1 FILM SUBLINGUAL (14:13)
--- NOTE | 2022-04-07 15:03 | P.DS_ITS ---
DS: Providers Provider Date of Service: 04/07/22 Date of admission: 03/29/22 15:30 Date of discharge: 04/07/22 Primary care physician: Maria Guadalupe Physician Admitting clinician: Shannan Bush Attending physician on admission: Kody Aguillon Consults: 04/04/22 08:54 Addiction Medicine Routine Consulting Provider: Brigitte Walker Reason for consultation: Senior Clinical Study Manager request by pt. Has provider been notified: No Attending physician on discharge: Kody Aguillon Discharging clinician: Shannan Bush DS: Diagnosis Discharge Diagnosis (1) MDD (major depressive disorder), recurrent episode, moderate: Status: Acute (2) Post traumatic stress disorder (PTSD): Status: Acute (3) Opioid use disorder: Status: Acute (4) Cocaine use disorder: Status: Acute DS: Medications Discharge Medications Home Medications: Previous Rx's Medication Instructions Recorded buprenorphine 2 mg-naloxone 0.5 mg 1 film sublingual DAILY@1500 #15 ea 03/22/22 sublingual film (Suboxone) Biotene 1 devon PO TID PRN ##0 04/07/22 atorvastatin 20 mg tablet 20 mg PO BEDTIME #30 tabs 04/07/22 buprenorphine 2 mg-naloxone 0.5 mg 1 film sublingual DAILY@1500 #0 ea 04/07/22 sublingual film (Suboxone) dextroamphetamine-amphetamine 10 10 mg PO BID #30 tabs 04/07/22 mg tablet (Adderall) docusate sodium 100 mg capsule 100 mg PO BEDTIME #30 caps 04/07/22 fluoxetine 10 mg capsule 10 mg PO DAILY #30 caps 04/07/22 gabapentin 300 mg capsule 300 mg PO TID #90 caps 04/07/22 lisinopril 10 mg tablet 10 mg PO DAILY #30 tabs 04/07/22 mirtazapine 30 mg tablet (Remeron) 45 mg PO BEDTIME #45 tabs 04/07/22 nicotine 21 mg/24 hr daily 21 mg transdermal DAILY PRN 04/07/22 transdermal patch nicotine craving #30 ea omeprazole 20 mg capsule,delayed 20 mg PO DAILY@0630 #30 caps 04/07/22 release quetiapine 25 mg tablet 25 mg PO Q6H PRN 04/07/22 anxiety/agitation/sleep #30 tabs quetiapine 50 mg tablet 50 mg PO BEDTIME #30 tabs 04/07/22 ropinirole 0.5 mg tablet 0.5 mg PO BEDTIME #30 tabs 04/07/22 Mental Status Exam Mental Status Exam Patient Appearance: Appropriate Patient Orientation: Person, Place, Time and Situation Level of Consciousness: Alert Patient Behavior: Talkative and Good Eye Contact Mood Description: Apprehensive Affect Description: Apprehensive Patient Cognition Impaired: No Ability to Follow Directions: Good Speech Pattern: Spontaneous Speech Memory Description: Intact Hallucinations: None Delusions: Not Present Thought Content: positive for Circumstantial Depressive Symptoms: Low Self Esteem Judgement: Good Data Data Completed and Pending Completed studies during hospitalization [Text1]: 04/07/22 10:06 COVID-19 ([facility]) Negative COVID-19 Clin Com See Note 03/27/22 08:56 Urine clean catch - Urine brown top Urine Culture - Final DS: Summary Hospital Course Hospital Course: Admission to adult psychiatry for exacerbation of symptoms of PTSD, Major Depression, ADHD, Opiate and Cocaine Use Disorder. Regime was re-established. Wellbutrin was discontinued. Pt was stabilized and several resources were presented for ongoing out patient care which pt accepted and will follow up with upon his discharge. Time spent discussing smoking cessation with patient: 3 to 10 minutes Status at Discharge Functional status at discharge: independent ambulation Overall status at discharge: patient is back to baseline Time Spent with Patient Time attestation: Total time spent providing and/or coordinating discharge services: 35 Time spent: Greater than 30 minutes Discharge Plan Discharge Anticipated Discharge Date/Time: 04/07/22 12:13 Patient Disposition: Home, Self-Care Discharge Diagnosis: Recurrent major depression PTSD ADHD Opiate Use Disorder Cocaine Use Disorder Referrals: [facility] [Other] - 04/13/22 1:00 pm (Psychiatric Evaluation) [facility] [Other] - 1 Week (Patient referral for [facility] Patient should follow-up with referral after discharge ) [facility] [Other] - 1 Week (Referral to [facility] Patient will follow-up on referral after discharge ) [facility] [Other] - 1 Week (Referral for [facility] Patient will follow-up on referral for substance abuse treatment after discharge ) [facility] [Other] - 1 Week (Referral to [facility] Patient will follow-up on substance abuse treatment referral after discharge ) [facility] [Other] (Walk in if needed) [facility]- [Other] - 04/04/22 10:30 am (Individual Therapy) [facility] [Other] - 05/11/22 1:00 pm [facility]argas [Other] - 04/13/22 3:00 pm (Follow-up outpatient therapy appointment Appointment in Person at [facility]) [facility] [Other] - 05/11/22 1:00 pm (Medication management appointment with psychiatric medication provider Appointment in person at [facility]) [facility] [Other] - 1 Week (Referral to [facility] Patient should follow-up on referral after discharge ) [facility] [Other] - 1 Week (Referral to [facility] for sober living arrangement Patient had scheduled phone intake on 04/05/2022 at 3:00 pm) [facility] [Other] - 04/10/22 11:30 am (Patient referral to [facility] sober living ) [facility] [Other] - 1 Week (Referral for [facility] Patient should follow-up with referral after discharge ) Discharge Medications: New ropinirole 0.5 mg Tablet 0.5 mg PO BEDTIME Qty: 30 0RF nicotine 21 mg/24 hr Patch 24 Hour 21 mg transdermal DAILY PRN (Reason: nicotine craving) Qty: 30 0RF fluoxetine 10 mg Capsule 10 mg PO DAILY Qty: 30 0RF buprenorphine-naloxone [Suboxone] 2-0.5 mg Film 1 film sublingual DAILY@1500 Qty: 0 0RF Biotene 1 devon PO TID PRNQty: 0 0RF mirtazapine [Remeron] 30 mg tablet 45 mg PO BEDTIME Qty: 45 0RF dextroamphetamine-amphetamine [Adderall] 10 mg tablet 10 mg PO BID Qty: 30 0RF Rx Instructions: administer doses at least 4-6 hours apart; Partial Fill upon patient request. Continued quetiapine 25 mg Tablet 25 mg PO Q6H PRN (Reason: anxiety/agitation/sleep) Qty: 30 0RF atorvastatin 20 mg Tablet 20 mg PO BEDTIME Qty: 30 0RF docusate sodium 100 mg Capsule 100 mg PO BEDTIME Qty: 30 0RF gabapentin 300 mg Capsule 300 mg PO TID Qty: 90 0RF quetiapine 50 mg Tablet 50 mg PO BEDTIME Qty: 30 0RF buprenorphine-naloxone [Suboxone] 2-0.5 mg film 1 film sublingual DAILY@1500 Qty: 15 0RF Changed lisinopril 10 mg tablet 10 mg PO DAILY Qty: 30 0RF omeprazole 20 mg capsule,delayed release(DR/EC) 20 mg PO DAILY@0630 Qty: 30 0RF Discontinued mirtazapine 15 mg Tablet 45 mg PO BEDTIME Qty: 90 0RF bupropion HCl 150 mg Tablet Extended Release 24 Hr 150 mg PO DAILY Qty: 30 0RF fluoxetine 40 mg capsule 40 mg PO DAILY Qty: 30 0RF hydroxyzine HCl 25 mg Tablet 25 mg PO Q6H PRN (Reason: Anxiety) Qty: 30 0RF Discharge Orders: Discharge Order (Routine); Ordered 04/07/22 Ordered By: Shannan Bush Diet: Advance to usual diet Activity on Discharge: As tolerated Stand Alone Forms: Patient Portal Discharge page, Community Support Care Plan Goals: Maintain mood and safe behaviors Take medications as directed Practice coping skills Continue with out patient providers and reach out to this team as needed Health Concerns: Stable mood and behaviors Plan of Treatment: Follow up with out patient providers Take medications as directed Message left with Darvin Dunbar of [facility], pts managed care analyst [phone] at pt request. Assessment: Robin reports he is prepared for discharge and believes he has enough resources to work with to assist him in transitioning. He was interviewed prior to discharge and found to be fully oriented and without any SI or HI. He has insight and demonstrates good judgment in terms of wanting to pursue treatment. He is not in imminent risk of harm to self or others and has a safety plan that includes presenting to the closest ER or calling 911 if feeling unsafe. He has been observed closely by nursing and unit staff throughout admission. He has not engaged in any behaviors that suggest dangerousness to self or others and has demonstrated appropriate behaviors and impulse control. Discharge Date/Time: 04/07/22 16:00
--- NOTE | 2022-04-07 15:03 | P.PNPSI_ITS ---
Subjective Subjective Date of Service: 04/06/22 Reason For Visit: Depression,SI,Polysubstance Abuse Subjective Notes: Conditional Voluntary Healthcare Proxy: No Guardianship: No Medical Problems Affecting Mental Status: No Interim History: Review of meds, out patient options with pt to prepare for discharge on 04/07. I am happy. Thank you to my team who worked so hard to give me all of these resources so I can live with my family again. Discussed re-starting ADHD regime upon discharge. Encouraged Vyvanse. Pt asks to return to his 10 mg bid Adderall. Medication Compliance: Yes Side effects from medications: No Attending Groups: Yes Review of Systems Acute medical concerns: No Medical Review of Systems: unchanged Mental Status Exam Mental Status Exam Patient Appearance: Appropriate Patient Orientation: Person, Place, Time and Situation Level of Consciousness: Alert Patient Behavior: Talkative and Good Eye Contact Mood Description: Apprehensive Affect Description: Apprehensive Patient Cognition Impaired: No Ability to Follow Directions: Good Speech Pattern: Spontaneous Speech Memory Description: Intact Hallucinations: None Delusions: Not Present Thought Content: positive for Circumstantial Depressive Symptoms: Low Self Esteem Judgement: Good Diagnostics Vital Signs (24Hr): Vital Signs - 24 hr 04/06/22 18:30 04/07/22 09:47 Temperature 97.6 F Pulse Rate 104 H 93 Respiratory Rate 18 Blood Pressure 131/58 L 125/74 Pulse Oximetry 97 Oxygen Delivery Method Room Air BMI result Body Mass Index 35.0 Labs Results: 03/27/22 10:12 03/30/22 08:20 Labs: Laboratory Results - last 48 hr 04/07/22 10:06 COVID-19 ([facility]) Negative COVID-19 Clin Com See Note Medications Medications Current Medications Acetaminophen (Acetaminophen 325 Mg Tablet) 650 mg PO Q6H PRN PRN Reason: Headache/Pain Mild Scale (1-3) Last Admin: 04/02/22 21:17 Dose: 650 mg Al Hydroxide/Mg Hydroxide (Magnesium Hydrox/Alum Hydrox 30 Ml Oral.Susp) 30 ml PO Q6H PRN PRN Reason: Heartburn/Nausea Atorvastatin Calcium (Atorvastatin Calcium 20 Mg Tablet) 20 mg PO BEDTIME YA[facility] Last Admin: 04/06/22 19:51 Dose: 20 mg Buprenorphine/Naloxone (Buprenorphine/Naloxone 2/0.5mg Film) 1 film SUBLINGUAL DAILY@1500 YAEL Last Admin: 04/07/22 14:13 Dose: 1 film Fluoxetine HCl (Fluoxetine Hcl 10 Mg Capsule) 10 mg PO DAILY [facility] Last Admin: 04/07/22 09:43 Dose: 10 mg Gabapentin (Gabapentin 300 Mg Capsule) 300 mg PO TID [facility] Last Admin: 04/07/22 14:13 Dose: 300 mg Hydroxyzine HCl (Hydroxyzine Hcl 25 Mg Tablet) 25 mg PO Q6H PRN PRN Reason: Anxiety Last Admin: 03/29/22 18:10 Dose: 25 mg Lisinopril (Lisinopril 10 Mg Tablet) 10 mg PO DAILY [facility]; Protocol Last Admin: 04/07/22 09:43 Dose: 10 mg Magnesium Hydroxide (Milk Of Magnesia 30 Ml Oral.Susp) 30 ml PO DAILY PRN PRN Reason: Constipation Mirtazapine (Mirtazapine 15 Mg Tablet) 45 mg PO BEDTIME [facility] Last Admin: 04/06/22 19:51 Dose: 45 mg Nicotine (Nicotine 21 Mg Patch.Td24) 21 mg TRANSDERMA DAILY PRN PRN Reason: nicotine craving Last Admin: 04/06/22 13:23 Dose: 21 mg Non-Formulary Medication (Biotene) 1 lozenge PO TID PRN PRN Reason: Dry Mouth Omeprazole (Omeprazole 20 Mg Capsule.Dr) 20 mg PO DAILY@0630 [facility] Last Admin: 04/07/22 06:27 Dose: 20 mg Pharmacy Consult (Consult Rx Perform Med Rec) 1 each MISCELLANE ONCE PRN PRN Reason: Consult order Quetiapine Fumarate (Quetiapine Fumarate 25 Mg Tablet) 25 mg PO Q6H PRN PRN Reason: anxiety/agitation/sleep Last Admin: 04/06/22 14:54 Dose: 25 mg Quetiapine Fumarate (Quetiapine Fumarate 50 Mg Tablet) 50 mg PO BEDTIME [facility] Last Admin: 04/06/22 19:52 Dose: 50 mg Ropinirole HCl (Ropinirole Hcl 0.5 Mg Tablet) 0.5 mg PO BEDTIME [facility] Last Admin: 04/06/22 19:52 Dose: 0.5 mg Saliva Substitute (Dry Mouth Spring 60 Ml Spring) 1 spray MUCOUS MEM Q2H PRN PRN Reason: dry mouth Trazodone HCl (Trazodone Hcl 50 Mg Tablet) 50 mg PO BEDTIME PRN PRN Reason: Insomnia Last Admin: 04/06/22 19:52 Dose: 50 mg Allergies Allergies Allergy/AdvReac Type Severity Reaction Status Date / Time No Known Allergies Allergy Verified 03/22/22 10:59 [No Known Allergies*] Assessment & Plan Assessment & Plan (1) MDD (major depressive disorder), recurrent episode, moderate: Status: Acute Code(s): F33.1 - Major depressive disorder, recurrent, moderate (2) Post traumatic stress disorder (PTSD): Status: Acute Code(s): F43.10 - Post-traumatic stress disorder, unspecified (3) Opioid use disorder: Status: Acute Code(s): F11.90 - Opioid use, unspecified, uncomplicated (4) Cocaine use disorder: Status: Acute Code(s): F14.10 - Cocaine abuse, uncomplicated Plan 03/31/22- Continue current plan. 04/01/2022 no changes to current plan. Exploring [facility] support 04/02/2022: Discontinue Suboxone as has not been taking 2 mg and reports wanting to come off same 04/03/22: Prozac 10 mg daily Seroquel 50 mg hs Requip 0.5 mg hs- RLS sx. Current SI, feeling he cannot live in community without complete structure. Will research resources. 04/04/22: Improved today-willing to look at post incarceration options. I need to put the work into this. Family is a strong motivator for pt. 04/06/22: Discharge for 04/07/22. I spent minutes with the patient and/or on the patient floor today, greater than?50% of which was spent counseling/coordinating care. Patient educated on: therapeutic strategies Informed Consent: understands Reason for contiued inpatient stay Substantial Risk for: stable for discharge
== END 2022-04-07 16:00 | disposition home or self-care (01) | DRG 751 ==
LOC: HO.ED 03-29 13:16 → HO.PM5 03-29 15:35
PROVIDERS: Physician Assistant; Admitting Provider Psychiatry & Neurology Psychiatry; Emergency Provider Student in an Organized Health Care Education/Training Program; Visit Provider Clinical Nurse Specialist Psychiatric/Mental Health, Adult
DX: F33.1 Major depressive disorder, recurrent, moderate (principal); R45.851 Suicidal ideations; F90.9 Attention-deficit hyperactivity disorder, unspecified type; E78.5 Hyperlipidemia, unspecified; F14.10 Cocaine abuse, uncomplicated; F11.20 Opioid dependence, uncomplicated; I10 Essential (primary) hypertension; Z23 Encounter for immunization; Z20.822 Contact with and (suspected) exposure to COVID-19; Z79.899 Other long term (current) drug therapy
CPT/HCPCS: 36415; 80053; 80061; 80307; 81001; 82077; 82607; 82746; 83036; 83735; 84439; 84443; 85025; 87086; 87635; 90686; 90792; 93005; 99285

== ENCOUNTER 2023-01-29 04:48 | Inpatient (IN) | payer OTHER, MEDICAID, SELFPAY ==
--- OUTSIDE RECORDS SUMMARY | 2023-01-29 05:11 | XMS_ITS | Continuity of Care Document ---
Author Name Unknown Organization [facility] ter Address [address] [place] [id number] Care Team Providers Care Loin Trimmer Name Role Phone Mariano Scales NP Primary Care Phys[id number] Date[facility]s): 04/09/22 - 04/12/[address] [address]- Encounter Diagnosis Chronic bipolar affective disorder(Final) - 04/11/22 Discharge Disposition: Transfer to [facility] Facility Attending Physician: Cornell Finch MD Admitting Physician: Cornell Finch MD Referring Physician: Not on Staff, Referring MD Allergies, Adverse Reactions, Alerts Substance Reaction Severity Status Other Environmental Allergy 1 Active 1wool Medications Adderall 10 mg oral tablet 1 tablet = 10 mg, By Mouth, 2 times a day, 0 Refills, Maintenance, 04/10/22 19:49:00 EDT, Partial fill upon patient request if the prescription is for a schedule II opioid drug. Start Date: 04/10/22 Status: Ordered Colace sodium 100 mg oral capsule 100 mg, 1, capsule, By Mouth, Daily at bedtime, Refills 0, Maintenance, 04/10/22 19:49:00 EDT, Partial fill upon patient request if the prescription is for a schedule II opioid drug. Start Date: 04/10/22 Status: Ordered hydrOXYzine hydrochloride 25 mg oral tablet 1 tablet = 25 mg, By Mouth, Every 6 hours, PRN as needed for anxiety, 0 Refills, Maintenance, 04/10/22 19:50:00 EDT, Partial fill upon patient request if the prescription is for a schedule II opioid drug. Start Date: 04/10/22 Status: Ordered Lipitor 20 mg oral tablet 1 tablet = 20 mg, By Mouth, Daily at bedtime, 0 Refills, Maintenance, 04/10/22 19:44:00 EDT, Partial fill upon patient request if the prescription is for a schedule II opioid drug. Start Date: 04/10/22 Status: Ordered Neurontin 300 mg oral capsule 300 mg, Capsule, By Mouth, 04/12/22 9:00:00 EDT Start Date: 04/12/22 Stop Date: 04/12/22 Status: Completed Neurontin 300 mg oral capsule 300 mg, 1, capsule, By Mouth, 3 times a day, Refills 0, Maintenance, 04/10/22 19:45:00 EDT, Partialfill upon patient request if the prescription is for a schedule II opioid drug. Start Date: 04/10/22 Status: Ordered nicotine 21 mg/24 hr transdermal film, extended release 1 patch, Topically, Daily, 0 Refills, Maintenance, 04/10/22 19:49:00 EDT, Partial fill upon patientrequest if the prescription is for a schedule II opioid drug. Start Date: 04/10/22 Status: Ordered omeprazole 20 mg oral delayed release tablet 1 tablet = 20 mg, By Mouth, Daily, 0 Refills, Maintenance, 04/10/22 19:45:00 EDT, Partial fill uponpatient request if the prescription is for a schedule II opioid drug. Start Date: 04/10/22 Status: Ordered PROzac 10 mg oral capsule 10 mg, 1, capsule, By Mouth, Daily, Refills 0, Maintenance, 04/10/22 19:49:00 EDT, Partial fill upon patient request if the prescription is for a schedule II opioid drug. Start Date: 04/10/22 Status: Ordered Remeron 30 mg oral tablet 1.5 tablet = 45 mg, By Mouth, Daily at bedtime, 0 Refills, Maintenance, 04/10/22 19:46:00 EDT, Partial fill upon patient request if the prescription is for a schedule II opioid drug. Start Date: 04/10/22 Status: Ordered rOPINIRole 0.5 mg oral tablet 1 tablet = 0.5 mg, By Mouth, Daily at bedtime, 0 Refills, Maintenance, 04/10/22 19:48:00 EDT, Partial fill upon patient request if the prescription is for a schedule II opioid drug. Start Date: 04/10/22 Status: Ordered SEROquel 25 mg oral tablet 25 mg, 1, tablet, By Mouth, Every 6 hours, PRN, Refills 0, Maintenance, Agitation, 04/10/22 19:46:00 EDT, Partial fill upon patient request if the prescription is for a schedule II opioid drug. Start Date: 04/10/22 Status: Ordered SEROquel 50 mg oral tablet 1 tablet = 50 mg, By Mouth, Daily at bedtime, 0 Refills, Maintenance, 04/10/22 19:46:00 EDT, Partial fill upon patient request if the prescription is for a schedule II opioid drug. Start Date: 04/10/22 Status: Ordered Suboxone 2 mg-0.5 mg sublingual film 1 film, Sublingual, Daily, 0 Refills, Maintenance, 04/10/22 19:49:00 EDT, Partial fill upon patientrequest if the prescription is for a schedule II opioid drug. Start Date: 04/10/22 Status: Ordered Wellbutrin XL 300 mg/24 hours oral tablet, extended release 1 tablet = 300 mg, By Mouth, Every 24 hours, 0 Refills, Maintenance, 04/10/22 19:50:00 EDT, Partialfill upon patient request if the prescription is for a schedule II opioid drug. Start Date: 04/10/22 Status: Ordered Zestril 10 mg oral tablet 10 mg, Tablet, By Mouth, 04/12/22 9:00:00 EDT Start Date: 04/12/22 Stop Date: 04/12/22 Status: Completed Zestril 10 mg oral tablet 10 mg, 1, tablet, By Mouth, Daily, Refills 0, Maintenance, 04/10/22 19:45:00 EDT, Partial fill uponpatient request if the prescription is for a schedule II opioid drug. Start Date: 04/10/22 Status: Ordered Vital Signs Most recent to oldest [Reference Range]: 1 2 3 Oxygen Saturation [94-100 %] 97 % (04/12/22 8:54 AM) 97 % (04/11/22 10:07 PM) 95 % (04/11/22 1:25 PM) Pulse Rate [55-90 bpm] 94 bpm *H* (04/12/22 8:54 AM) 81 bpm (04/11/22 10:07 PM) 95 bpm *H* (04/11/22 1:25 PM) Blood Pressure [90-138/55-84 mm Hg] 136/89mm Hg (04/12/22 8:57 AM) 136/89mm Hg (04/12/22 8:54 AM) 122/73mm Hg (04/11/22 10:07 PM) Respiratory Rate [16-30 br/min] 18 br/min (04/12/22 8:56 AM) 18 br/min (04/12/22 8:54 AM) 18 br/min (04/11/22 10:07 PM) Temperature [96.8-100.4 DegF] 98.5 DegF (04/12/22 8:54 AM) 97.5 DegF (04/11/22 10:07 PM) 98.0 DegF (04/11/22 1:25 PM) Mode of Delivery (Oxygen) Room air (04/12/22 8:54 AM) Room air (04/11/22 10:07 PM) Room air (04/11/22 1:25 PM) Blood pressure sites Arm, left (04/12/22 8:54 AM) Arm, right (04/11/22 10:07 PM) Arm, right (04/11/22 1:25 PM) Temperature Route Oral (04/12/22 8:54 AM) Oral (04/11/22 10:07 PM) Oral (04/11/22 1:25 PM) Patient Care team information Personnel Name: Mariano Scales NP Address: Address: [address] [place] [address]
--- NOTE | 2023-01-29 05:27 | ED_ITS ---
HPI - Psych General Chief Complaint: Psychiatric Symptoms Stated Complaint: SI Time Seen by Provider: 01/29/23 05:08 Source: patient Mode of arrival: ambulatory Limitations: no limitations History of Present Illness HPI Narrative: Patient was brought to the emergency room by his family. Patient states that he has suicidal thoughts, patient tried jumping out of a window from his mother's house. Patient had to be pulled back by the patient's mother and brother. Denies homicidal ideation Related Data Previous Rx's Medication Instructions Recorded buprenorphine 2 mg-naloxone 0.5 mg 1 film sublingual DAILY@1500 #15 ea 03/22/22 sublingual film (Suboxone) Biotene 1 devon PO TID PRN ##0 04/07/22 atorvastatin 20 mg tablet 20 mg PO BEDTIME #30 tabs 04/07/22 buprenorphine 2 mg-naloxone 0.5 mg 1 film sublingual DAILY@1500 #0 ea 04/07/22 sublingual film (Suboxone) dextroamphetamine-amphetamine 10 10 mg PO BID #30 tabs 04/07/22 mg tablet (Adderall) docusate sodium 100 mg capsule 100 mg PO BEDTIME #30 caps 04/07/22 fluoxetine 10 mg capsule 10 mg PO DAILY #30 caps 04/07/22 gabapentin 300 mg capsule 300 mg PO TID #90 caps 04/07/22 lisinopril 10 mg tablet 10 mg PO DAILY #30 tabs 04/07/22 mirtazapine 30 mg tablet (Remeron) 45 mg PO BEDTIME #45 tabs 04/07/22 nicotine 21 mg/24 hr daily 21 mg transdermal DAILY PRN 04/07/22 transdermal patch nicotine craving #30 ea omeprazole 20 mg capsule,delayed 20 mg PO DAILY@0630 #30 caps 04/07/22 release quetiapine 25 mg tablet 25 mg PO Q6H PRN 04/07/22 anxiety/agitation/sleep #30 tabs quetiapine 50 mg tablet 50 mg PO BEDTIME #30 tabs 04/07/22 ropinirole 0.5 mg tablet 0.5 mg PO BEDTIME #30 tabs 04/07/22 Allergies Allergy/AdvReac Type Severity Reaction Status Date / Time No Known Allergies Allergy Verified 03/22/22 10:59 [No Known Allergies*] Review of Systems Review of Systems: Constitutional : No Weight loss, No Fever, No Chills, No Night Sweats, No Fatigue, No Malaise ENT/Mouth : No Hearing loss, No Ear Pain, No Nasal Congestion, No Sinus Pain, No Hoarseness, No sore throat, No Rhinorrhea, No Swallowing Difficulty Eyes: No Eye Pain, No Swelling, No Redness, No Foreign Body, No Discharge, No Vision Changes Cardiovascular : No Chest Pain, No SOB, No Dyspnea on Exertion, No Orthopnea, No Edema, No Palpitations Respiratory : No Cough, No Sputum, No Wheezing, No Smoke Exposure, No Dyspnea Gastrointestinal : No Nausea, No Vomiting, No Diarrhea, No Constipation, No abdominal Pain, No Hematochezia, No Melena Genitourinary : no irregular bleeding, No Dysuria, No Urinary Frequency, No Hematuria, No Urinary Incontinence, No Urgency, No Flank Pain, No Urinary Flow Changes, No Hesitancy Musculoskeletal : No joint pain, No Myalgias, No Joint Swelling Skin : No Skin Lesions, No rash Neuro : No Weakness, No Numbness, No Paresthesias, No Loss of Consciousness, No Dizziness, No Headache Psych : Complaining of anxiety, depression, suicidal ideation, no homicidal ideation Heme/Lymph: No Bruising, No Bleeding,No Lymphadenopathy Endocrine : No Polyuria, No Polydipsia, No Temperature Intolerance PMFSH Past Medical History Medical History Cocaine abuse Depression HLD (hyperlipidemia) HTN (hypertension) PTSD (post-traumatic stress disorder) Family History Family History Father Colon cancer, Onset Age: 60 Paternal Grandfather Colon cancer Social History Social History Household Members: Family Housing: House Do you presently have visiting nurse or other home services: No Alcohol intake: never Patient Tobacco Use Status: Current everyday Tobacco user Tobacco use type: Cigarette Cigarette Packs Per Day: 0.5 Cigarettes Per Day: 10 Smoked in Last 30 Days: Yes Second Hand Smoke Exposure: No Use of substances other than those prescribed or required for medical reasons: No Substance Use Type: Crack/Cocaine Advance Directives: No Advance Directives Information Provided: No service: No Sexual orientation: Straight/Heterosexual Physical Exam Const: Other: Appearance: Alert. Oriented X3. No acute distress. Eyes: Pupils equal, round and reactive to light. ENT: Pharynx normal. Neck: Normal inspection. Neck supple. No lymph nodes noted. No crepitus CVS: Normal heart rate and rhythm. Pulses normal. Normal S1 and S2 Respiratory: No respiratory distress. Breath sounds normal. No Wheezing. No ral es Abdomen: Soft and nontender. No rigidity. No distention. Skin: Skin warm and dry. Normal skin color. Normal skin turgor. Extremities: No lower extremity edema. No Lacerations. No Rash Neuro: Oriented X 3. No motor deficit. No sensory deficit. Moving all extremities. No slurred speech. CN 2 through 12 grossly intact Psych: calm, cooperative, normal affect Course Course Course Narrative: -all of patient's labs pending -patient is on a Section 12 -care team consult pending -physician observation started at 05:30 Discharge Plan Discharge Clinical Impression: Suicidal ideation Patient Disposition: Still a Patient Prescriptions: No Action ropinirole 0.5 mg Tablet 0.5 mg PO BEDTIME Qty: 30 0RF nicotine 21 mg/24 hr Patch 24 Hour 21 mg transdermal DAILY PRN (Reason: nicotine craving) Qty: 30 0RF fluoxetine 10 mg Capsule 10 mg PO DAILY Qty: 30 0RF buprenorphine-naloxone [Suboxone] 2-0.5 mg Film 1 film sublingual DAILY@1500 Qty: 0 0RF Biotene 1 devon PO TID PRNQty: 0 0RF mirtazapine [Remeron] 30 mg tablet 45 mg PO BEDTIME Qty: 45 0RF dextroamphetamine-amphetamine [Adderall] 10 mg tablet 10 mg PO BID Qty: 30 0RF Rx Instructions: administer doses at least 4-6 hours apart; Partial Fill upon patient request. quetiapine 25 mg Tablet 25 mg PO Q6H PRN (Reason: anxiety/agitation/sleep) Qty: 30 0RF atorvastatin 20 mg Tablet 20 mg PO BEDTIME Qty: 30 0RF lisinopril 10 mg tablet 10 mg PO DAILY Qty: 30 0RF docusate sodium 100 mg Capsule 100 mg PO BEDTIME Qty: 30 0RF gabapentin 300 mg Capsule 300 mg PO TID Qty: 90 0RF omeprazole 20 mg capsule,delayed release(DR/EC) 20 mg PO DAILY@0630 Qty: 30 0RF quetiapine 50 mg Tablet 50 mg PO BEDTIME Qty: 30 0RF buprenorphine-naloxone [Suboxone] 2-0.5 mg film 1 film sublingual DAILY@1500 Qty: 15 0RF Interventions: [place]-Suicide Risk Severity Scale Last Done: 01/29/23 05:08
[2023-01-29 05:36] VITALS: BMI 31.6
[2023-01-29 06:25] LABS: MANUAL DIFF FLAG NO
[2023-01-29 06:27] LABS: Basophils Absolute Auto 0.1 X10*3/uL (0.0-0.2); Basophils Percent Auto 0.7 % (0-2); Eosinophils Absolute Auto 0.4 X10*3/uL (0.0-0.4); Eosinophils Percent Auto 4.7 % (0-4); Hematocrit 40.6 % (42.0-52.0); Hemoglobin 14.3 g/dl (14.0-18.0); Imm Gran Abs Auto 0.02 X10*3/uL (0.00-0.03); Imm Gran Pct Auto 0.2 % (0.0-0.4); Lymphocytes Absolute Auto 3.1 X10*3/uL (1.2-4.9); Lymphocytes Percent Auto 37.8 % (20-40); Mean Corpuscular HGB Conc 35.2 g/dl (31.0-36.0); Mean Corpuscular Hemoglobin 28.8 pg (27.0-33.0); Mean Corpuscular Volume 81.7 fL (80.0-98.0); Mean Platelet Volume 11.2 fL (9.4-12.4); Monocytes Absolute Auto 0.4 X10*3/uL (0.1-1.2); Neutrophils Absolute Auto 4.2 x10*3/uL (2.0-8.3); Neutrophils Percent Auto 51.6 % (45-73); Platelet Count 252 X10*3/uL (160-400); Red Blood Count 4.97 X10*6/uL (4.60-5.80); Red Cell Distribution Width 14.7 % (11.0-16.0); White Blood Count 8.2 X10*3/uL (4.8-10.8)
--- NOTE | 2023-01-29 07:48 | PC.NURSE ---
patient sleepng in stretcher in front of nurses station, respirations equal and unlabored. sitter 1:1
[2023-01-29 08:28] LABS: Alanine Aminotransferase 15 U/L (0-40); Albumin Level 4.2 g/dL (3.5-5.0); Alkaline Phosphatase 76 U/L (39-117); Aspartate Amino Transferase 28 U/L (5-37); Bilirubin Direct 0.2 mg/dL (0.0-0.5); Bilirubin Total 0.6 mg/dL (0.0-1.0); Blood Urea Nitrogen 20 mg/dL (9-16); Calcium 9.7 mg/dL (8.4-10.2); Chloride 107 mmol/L (96-108); Creatinine Clr Calc Pharmacy 74.7; Estimated Glomerular Filt Rate > 60; Ethanol < 10 mg/dL; Glucose Random 100 mg/dL (60-115); Potassium 3.8 mmol/L (3.3-5.1); Sodium 141 mmol/L (135-145); Total Protein 7.2 g/dL (6.5-8.0)
[2023-01-29 09:52] LABS: Anion Gap 13 (12-20); Carbon Dioxide 24 mmol/L (22-29)
[2023-01-29 09:56] VITALS: BP 141/100; PULSE 85; RESP 16; TEMP 36.7
[2023-01-29 11:24] LABS: Amphetamine Screen Urine Not Detected (Not Detect); Barbiturates, Urine Not Detected (Not Detect); Benzodiazepines Screen Urine Not Detected (Not Detect); Cannabinoid Screen Urine Not Detected (Not Detect); Cocaine Screen Urine POSITIVE (Not Detect); Fentanyl, urine Not Detected (Not Detect); Opiate Screen Urine Not Detected (Not Detect); Phencyclidine Screen Urine Not Detected (Not Detect)
--- NOTE | 2023-01-29 12:22 | MHC.EDTECH ---
this pct attempted to take vitals on patient, patient is very upset and refused all care and requested to leave RN aware
[2023-01-29 12:31] VITALS: BP 134/81; PULSE 67; RESP 18; O2SAT 94
[2023-01-29] MEDS: lisinopriL 10 MG TABLET PO (12:36)
[2023-01-29] MEDS: Atorvastatin Calcium 20 MG TABLET PO (12:36)
[2023-01-29] MEDS: Nicotine 21 MG PATCH.TD24 TRANSDERMA (12:36)
[2023-01-29] MEDS: Omeprazole 40 MG CAPSULE.DR PO (12:36)
[2023-01-29] MEDS: QUEtiapine Fumarate 25 MG TABLET PO (12:36)
[2023-01-29] MEDS: FLUoxetine HCl 10 MG CAPSULE PO (12:36)
--- NOTE | 2023-01-29 12:40 | PC.NURSE ---
patient was asleep most of morning 1:1 with sitter, patient was awoken by tecxh for vitals and had outburst stating he wanted to leave. patient requested his medications, provider put in one time order of daily medications. patient emdicated per mar, patient is calm and cooperative now sitter 1:1
--- NOTE | 2023-01-29 17:08 | PC.NURSE ---
patient is resting in stretcher, calm and cooperative. patient is inpt bed search
--- NOTE | 2023-01-29 21:53 | PC.NURSE ---
pt in his room most of the shift, denies any pain
--- NOTE | 2023-01-30 | ECG_ITS ---
Test Reason : CHECK FOR PROLONG QT Blood Pressure : / mmHG Vent. Rate : 079 BPM Atrial Rate : 079 BPM P-R Int : 176 ms QRS Dur : 086 ms QT Int : 380 ms P-R-T Axes : 071 048 060 degrees QTc Int : 435 ms Normal sinus rhythm Normal ECG When compared with ECG of 27-MAR-2022 19:30, No significant change was found Referred By: Yajaira Martínez Electronically Signed By:MALENA BOSE
[2023-01-30 01:21] VITALS: BP 142/81; PULSE 87; RESP 16; O2SAT 97
[2023-01-30] MEDS: QUEtiapine Fumarate 25 MG TABLET PO (01:51)
[2023-01-30] MEDS: Ibuprofen 600 MG TABLET PO (02:32)
[2023-01-30] MEDS: Omeprazole 20 MG CAPSULE.DR PO (05:35)
[2023-01-30] MEDS: Gabapentin 300 MG CAPSULE PO ×3 (08:52→21:04)
[2023-01-30] MEDS: FLUoxetine HCl 10 MG CAPSULE PO (08:52)
[2023-01-30] MEDS: lisinopriL 10 MG TABLET PO (08:52)
[2023-01-30] MEDS: Amphetamine Mixed Salts 10 MG TABLET PO (08:52)
[2023-01-30 09:00] VITALS: BP 120/80; PULSE 67; RESP 16; O2SAT 96
--- NOTE | 2023-01-30 11:44 | PC.NURSE ---
pt axox4, vss, respirations even and unlabored, skin wpd. pt denies si/hi at this time. cv signed. pt calm; cooperative. awaiting bed assignment. pt medicated per aug. resting in bed at this time; denies further questions/concerns; all needs met. 15 min safety checks in place.
[2023-01-30 12:00] LABS: COVID-19 Test Negative (Negative); IDNOW Serial# 08D9AD1C
--- NOTE | 2023-01-30 13:48 | PHA.MEDREC ---
Pharmacy Consult ? Medication Reconciliation Pharmacy has reviewed the medication reconciliation. Patient is reporting he is taking medication last filled in march including adderall and gabapentin per claim history. Patient reports taking Suboxone 8mg which was last filled 10/23/22 by [facility], therefore patient may have being getting his medications from a facility. Spoke with Dr. Martínez about the discrepancies, and he will continue medications based on how patient reported. Hoda Nixon, TristanD
[2023-01-30 14:32] LABS: Appearance Urine Clear; Color Urine Yellow; Glucose Urine UA Negative (Negative); Leukocyte Esterase Urine Negative (Negative); Nitrite Urine Negative (Negative); Specific Gravity - Urine <= 1.005 (1.005-1.025); Urine Blood Negative (Negative); Urine Ketones Negative (Negative); Urine Protein Negative (Neg-Trace)
[2023-01-30 14:42] LABS: Bacteria Urine None Seen (None Seen); Hyaline Casts Urine 0-2 /LPF (0-2); RBC Urine 0-2 /HPF (0-2); Squamous Epithelial Cell Urine 0-2 /HPF (0-2); WBC Urine 0-5 /HPF (0-5)
[2023-01-30] MEDS: Buprenorphine/Naloxone 2/0.5mg FILM 1 FILM SUBLINGUAL (15:38)
--- NOTE | 2023-01-30 16:25 | PC.NURSE ---
pt medicated per aug. upon leaving room observed pt on camera removing suboxone sublingual from mouth, crumbled up and rolled repeatedly between fingers before flicking across room. security to bedside; room searched unable to find strip; most likely dissolved d/t saliva and friction.
[2023-01-30 17:16] VITALS: BP 127/80; PULSE 82; RESP 16; TEMP 36.3; O2SAT 98
[2023-01-30 19:30] VITALS: BP 133/76; PULSE 96; RESP 16; TEMP 36.8; O2SAT 100
[2023-01-30] MEDS: Atorvastatin Calcium 20 MG TABLET PO (21:03)
[2023-01-30] MEDS: Docusate Sodium 100 MG CAPSULE PO (21:04)
[2023-01-30] MEDS: Acetaminophen 325 MG TABLET 650 MG PO (21:04)
[2023-01-30] MEDS: Ibuprofen 800 MG TABLET PO (21:20)
--- NOTE | 2023-01-30 22:23 | PC.ADMIT ---
Pt. is a 53yo male AOx4 who arrived on [id number]- signed CV in [facility] ED, and summarily, signed 3-day notice @2200 on floor. Pt. is admitted for SI. In ED reports daily cocaine usage, but now denies any substance abuse. Pt. belongings attended to by ancillary staff. Pt. endorses feeling safe on unit. Skin check completed w/o issue. Pt. endorses wanting to rest in room. Pt. reports dental abscess- reported to MD Deejay- rx amox/clav BID. Pt. slept rest of shift.
[2023-01-30] MEDS: Amoxicillin/Potassium Clav 500 MG TABLET PO (22:49)
[2023-01-31] MEDS: Omeprazole 20 MG CAPSULE.DR PO (06:21)
[2023-01-31 08:38] LABS: Alanine Aminotransferase 25 U/L (0-40); Albumin Level 3.8 g/dL (3.5-5.0); Alkaline Phosphatase 81 U/L (39-117); Anion Gap 11 (12-20); Aspartate Amino Transferase 31 U/L (5-37); Bilirubin Total 0.2 mg/dL (0.0-1.0); Blood Urea Nitrogen 21 mg/dL (9-16); Calcium 9.2 mg/dL (8.4-10.2); Carbon Dioxide 26 mmol/L (22-29); Chloride 109 mmol/L (96-108); Cholesterol 142 mg/dL; Creatinine Clr Calc Pharmacy 80.2; Estimated Glomerular Filt Rate > 60; Glucose Fasting 85 mg/dL (60-99); HDL Cholesterol 31 mg/dL; LDL Cholesterol Calculated 80 mg/dl; Sodium 142 mmol/L (135-145); Total Protein 6.7 g/dL (6.5-8.0); Triglycerides 155 mg/dL
[2023-01-31] MEDS: Amphetamine Mixed Salts 10 MG TABLET PO ×2 (09:23→12:31)
[2023-01-31] MEDS: Gabapentin 300 MG CAPSULE PO ×3 (09:23→19:25)
[2023-01-31] MEDS: lisinopriL 10 MG TABLET PO (09:23)
[2023-01-31] MEDS: FLUoxetine HCl 10 MG CAPSULE PO (09:23)
[2023-01-31] MEDS: Amoxicillin/Potassium Clav 500 MG TABLET PO (09:23)
[2023-01-31 09:30] VITALS: BP 131/71; PULSE 76; RESP 16; TEMP 36.7; O2SAT 98
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
[2023-01-31] MEDS: Ibuprofen 800 MG TABLET PO (16:45)
[2023-01-31] MEDS: Buprenorphine/Naloxone 4/1 mg FILM 1 FILM SUBLINGUAL (16:46)
[2023-01-31 19:20] VITALS: BP 120/93; PULSE 89; TEMP 36.4
[2023-01-31] MEDS: Acetaminophen 325 MG TABLET 650 MG PO (19:24)
[2023-01-31] MEDS: Atorvastatin Calcium 20 MG TABLET PO (19:25)
[2023-01-31] MEDS: Docusate Sodium 100 MG CAPSULE PO (19:26)
[2023-01-31] MEDS: traZODone HCL 50 MG TABLET PO (19:26)
[2023-01-31] MEDS: hydrOXYzine HCL 25 MG TABLET PO (19:27)
[2023-01-31] MEDS: cloNIDine HCL 0.1 MG TABLET PO (19:28)
[2023-02-01] MEDS: Amoxicillin/Potassium Clav 500 MG TABLET PO ×2 (00:20→08:55)
[2023-02-01] MEDS: Ibuprofen 800 MG TABLET PO ×2 (04:01→13:56)
[2023-02-01] MEDS: Acetaminophen 325 MG TABLET 650 MG PO (05:55)
[2023-02-01] MEDS: Omeprazole 20 MG CAPSULE.DR PO (05:56)
[2023-02-01] MEDS: Buprenorphine/Naloxone 4/1 mg FILM 1 FILM SUBLINGUAL (08:55)
[2023-02-01] MEDS: Gabapentin 300 MG CAPSULE PO ×2 (08:55→14:02)
[2023-02-01] MEDS: lisinopriL 10 MG TABLET PO (08:55)
[2023-02-01] MEDS: Dextroamphetamine/Amphetamine XR 10 MG CAP.ER.24H 20 MG PO (08:55)
[2023-02-01] MEDS: FLUoxetine HCl 20 MG CAPSULE PO (08:55)
[2023-02-01 09:15] VITALS: BP 123/65; PULSE 74; RESP 18; TEMP 36.4; O2SAT 94
--- NOTE | 2023-02-01 13:26 | PM.PSYDC ---
DS: Providers Provider Date of Service: 02/01/23 Date of admission: 01/30/23 18:11 Date of discharge: 02/01/23 Primary care physician: Unknown Physician DS: Diagnosis Discharge Diagnosis (1) MDD (major depressive disorder), recurrent episode, moderate: Status: Acute (2) Post traumatic stress disorder (PTSD): Status: Acute (3) Cocaine use disorder: Status: Acute (4) Opioid use disorder: Status: Acute (5) TBI (traumatic brain injury): Status: Acute DS: Medications Discharge Medications Home Medications: Previous Rx's Medication Instructions Recorded amoxicillin 500 mg-potassium 1 tab PO BID 6 days #12 tabs 02/01/23 clavulanate 125 mg tablet atorvastatin 20 mg tablet 20 mg PO BEDTIME 30 days #30 tabs 02/01/23 buprenorphine 4 mg-naloxone 1 mg 1 film sublingual DAILY 5 days #5 02/01/23 sublingual film (Suboxone) ea clonidine HCl 0.1 mg tablet 0.1 mg PO BEDTIME 30 days #30 tabs 02/01/23 docusate sodium 100 mg capsule 100 mg PO BEDTIME PRN constipation 02/01/23 30 days #30 caps fluoxetine 20 mg capsule 20 mg PO DAILY 30 days #30 caps 02/01/23 gabapentin 300 mg capsule 300 mg PO TID 30 days #90 caps 02/01/23 lisinopril 10 mg tablet 10 mg PO DAILY 30 days #30 tabs 02/01/23 nicotine 21 mg/24 hr daily 21 mg transdermal DAILY PRN 02/01/23 transdermal patch nicotine craving 30 days #30 ea omeprazole 20 mg capsule,delayed 20 mg PO DAILY@0630 30 days #30 02/01/23 release caps quetiapine 25 mg tablet 25 mg PO Q6H PRN 02/01/23 anxiety/agitation/sleep 30 days #90 tabs trazodone 100 mg tablet See Rx Instructions .Route 02/01/23 .COMPLEX PRN insomnia 30 days #30 tabs Mental Status Exam Mental Status Exam Narrative: Pt is alert and oriented; behavior is cooperative, friendly and calm; patient is not in distress; dressed in casual attire, with unkempt hair but adequate hygiene; mood is described as good and affect congruent; eye contact appropriate; Speech is normal rate, volume and prosody and not pressured; no psychomotor agitation/retardation present; thought process is organized and goal directed; Thought content is on tx and discharge; otherwise pertinent to relevant topics and without any delusional content, paranoid ideations or grandiosity; denies any SI/HI. There is no evidence of perceptual disturbance. Patients insight and judgment appear intact. Data Data Completed and Pending Completed studies during hospitalization [Text1]: 01/29/23 01/29/23 01/29/23 06:21 06:21 11:02 WBC 8.2 RBC 4.97 Hgb 14.3 Hct 40.6 L MCV 81.7 MCH 28.8 MCHC 35.2 RDW 14.7 Plt Count 252 D MPV 11.2 Immature Gran % (Auto) 0.2 Neut % (Auto) 51.6 Lymph % (Auto) 37.8 [place] % (Auto) 5.0 Eos % (Auto) 4.7 H Baso % (Auto) 0.7 Lymph # (Auto) 3.1 [place] # (Auto) 0.4 Eos # (Auto) 0.4 Baso # (Auto) 0.1 Abs Immat Gran (auto) 0.02 Absolute Neuts (auto) 4.2 Absolute Nucleated RBC 0.000 Nucleated RBC % (auto) 0.0 Sodium 141 Potassium 3.8 Chloride 107 Carbon Dioxide 24 Anion Gap 13 BUN 20 H Creatinine 1.18 Estim Creat Clear Calc 74.7 Estimated GFR > 60 Random Glucose 100 Fasting Glucose Calcium 9.7 D Total Bilirubin 0.6 Direct Bilirubin 0.2 AST 28 ALT 15 Alkaline Phosphatase 76 Total Protein 7.2 Albumin 4.2 Triglycerides Cholesterol LDL Cholesterol, Calc HDL Cholesterol Urine Color Urine Appearance Urine pH Ur Specific [place] Urine Protein Urine Glucose (UA) Urine Ketones Urine Blood Urine Nitrite Ur Leukocyte Esterase Urine RBC Urine WBC Ur Squamous Epith Cells Urine Bacteria Hyaline Casts Urine Opiates Screen Not Detected Urine Fentanyl Screen Not Detected Ur Barbiturates Screen Not Detected Ur Phencyclidine Scrn Not Detected Ur Amphetamines Screen Not Detected U Benzodiazepines Scrn Not Detected Urine Cocaine Screen POSITIVE H U Marijuana (THC) Screen Not Detected Ethyl Alcohol < 10 COVID-19 ([facility]) COVID-19 Clin Com 01/30/23 01/30/23 01/31/23 11:24 13:37 07:55 WBC RBC Hgb Hct MCV MCH MCHC RDW Plt Count MPV Immature Gran % (Auto) Neut % (Auto) Lymph % (Auto) [place] % (Auto) Eos % (Auto) Baso % (Auto) Lymph # (Auto) [place] # (Auto) Eos # (Auto) Baso # (Auto) Abs Immat Gran (auto) Absolute Neuts (auto) Absolute Nucleated RBC Nucleated RBC % (auto) Sodium 142 Potassium 4.0 Chloride 109 H Carbon Dioxide 26 Anion Gap 11 L BUN 21 H Creatinine 1.10 Estim Creat Clear Calc 80.2 Estimated GFR > 60 Random Glucose Fasting Glucose 85 Calcium 9.2 Total Bilirubin 0.2 Direct Bilirubin AST 31 ALT 25 Alkaline Phosphatase 81 Total Protein 6.7 Albumin 3.8 Triglycerides 155 Cholesterol 142 LDL Cholesterol, Calc 80 HDL Cholesterol 31 Urine Color Yellow Urine Appearance Clear Urine pH 6.0 Ur Specific [place] <= 1.005 Urine Protein Negative Urine Glucose (UA) Negative Urine Ketones Negative Urine Blood Negative Urine Nitrite Negative Ur Leukocyte Esterase Negative Urine RBC 0-2 Urine WBC 0-5 Ur Squamous Epith Cells 0-2 Urine Bacteria None Seen Hyaline Casts 0-2 Urine Opiates Screen Urine Fentanyl Screen Ur Barbiturates Screen Ur Phencyclidine Scrn Ur Amphetamines Screen U Benzodiazepines Scrn Urine Cocaine Screen U Marijuana (THC) Screen Ethyl Alcohol COVID-19 ([facility]) Negative COVID-19 Clin Com See Note DS: Summary Hospital Course Hospital Course: HPI: Patient is a 53-year-old male with history of PTSD, TBI, cocaine abuse, opioid dependence on Suboxone (which he buys on the street) and incarceration who presents for dysregulated mood in the face of relational strife.? -patient's recent bout of depression triggered by dissolution of relationship with ; although dysregulated and relapsed, patient denies he was ever actually suicidal.? Patient says he has been getting medications from going to emergency rooms and asking for refills and he wants to continue on current medication regimen. Hospital course: On admission, patient very quickly reports feeling better. He says he was never really suicidal, that he just said that to get admission so he could get access to medication. Patient said he would never actually hurt himself and offered for com writer to contact anyone in his family for collateral, confident they would say the same. Patient initially wanted help, with medication management and providers in the community however he approached, requesting a quick discharge, saying that his 70-year-old mother is at home with his autistic daughter (which is confirmed) and that his mother is having a hard time controlling her as the daughter can get combative. Patient signed a 3 day notice; he was calm, cooperative, appropriate with peers and staff and demonstrating good behavioral and impulse control. He reiterates that he is feeling much better, without any SI and that he will follow-up with referral given by director of social services. Patient was tolerating medications well. He has no history of self-harm. He was continued on Suboxone and set up with a Suboxone appointment which will be helpful. He is returning to live with his mother's who is supportive, saying he is done with this past relationship and that he will be able to stay safe and sober. Irish Moss Operator and team agree that to whatever degree he got dysregulated, it is now resolved and he has returned to baseline. Patient is not in imminent risk for harm to self or others and request for discharge honored. Of note patient has history of TBI and said he benefited from Adderall which was started in the emergency room; he understands that he can discuss this medication further with outpatient provider once he establishes a relationship. Time spent discussing smoking cessation with patient: 3 to 10 minutes Status at Discharge Functional status at discharge: independent ambulation Overall status at discharge: patient is back to baseline Time Spent with Patient Time attestation: Total time managing care of this patient today ____ minutes. Time spent: Less than 30 minutes Discharge Plan Discharge Anticipated Discharge Date/Time: 02/01/23 14:30 Patient Disposition: Home, Self-Care Discharge Diagnosis: MDD, recurrent, moderate in full remission Referrals: [facility] Intake Walk-In [Other] - 1 Week (Walk in for intake between 10-12pm. Tuesdays or .) [facility] [Other] - 1 Week After Incarceration Support [facility] [Other] - 1 Week [facility] Suboxone Appt [Other] - 1 Week [facility] [Other] (Walk in if needed) Discharge Medications: New amoxicillin-pot clavulanate 500-125 mg Tablet 1 tab PO BID 6 Days Qty: 12 0RF clonidine HCl 0.1 mg Tablet 0.1 mg PO BEDTIME 30 Days Qty: 30 0RF Protocol: Hold for SBP< HOLD for SBP < : 90 buprenorphine-naloxone [Suboxone] 4-1 mg Film 1 film sublingual DAILY 5 Days Qty: 5 0RF trazodone 100 mg tablet See Rx Instructions .ROUTE .COMPLEX PRN (Reason: insomnia) 30 Days Qty: 30 0RF Rx Instructions: take 1/2 to 1 tab at bedtime as needed for insomnia docusate sodium 100 mg Capsule 100 mg PO BEDTIME PRN (Reason: constipation) 30 Days Qty: 30 0RF Continued quetiapine 25 mg Tablet 25 mg PO Q6H PRN (Reason: anxiety/agitation/sleep) 30 Days Qty: 90 0RF atorvastatin 20 mg Tablet 20 mg PO BEDTIME 30 Days Qty: 30 0RF lisinopril 10 mg tablet 10 mg PO DAILY 30 Days Qty: 30 0RF nicotine 21 mg/24 hr Patch 24 Hour 21 mg transdermal DAILY PRN (Reason: nicotine craving) 30 Days Qty: 30 0RF gabapentin 300 mg Capsule 300 mg PO TID 30 Days Qty: 90 0RF omeprazole 20 mg capsule,delayed release(DR/EC) 20 mg PO DAILY@0630 30 Days Qty: 30 0RF Changed fluoxetine 20 mg capsule 20 mg PO DAILY 30 Days Qty: 30 0RF Discontinued dextroamphetamine-amphetamine [Adderall] 10 mg tablet 10 mg PO BID Qty: 30 0RF Rx Instructions: administer doses at least 4-6 hours apart; Partial Fill upon patient request. quetiapine 50 mg Tablet 50 mg PO BEDTIME Qty: 30 0RF amoxicillin 500 mg Tablet 500 mg PO TID Rx Instructions: x 7 days ibuprofen 600 mg Tablet 600 mg PO Q6H PRN (Reason: Pain) buprenorphine-naloxone [Suboxone] 8-2 mg film 1 film sublingual DAILY Discharge Orders: Discharge Order (Routine); Ordered 02/01/23 Ordered By: Angel Garcia Diet: Regular diet Activity on Discharge: As tolerated Stand Alone Forms: Patient Portal Discharge page, Community Support Care Plan Goals: Maintain mood and safe behaviors Take medications as prescribed Continue to pursue sobriety Practice coping skills Continue with outpatient providers and reach out to them as needed Health Concerns: Mood stability and behaviors Sobriety TBI GERD Plan of Treatment: Follow up with your PCP, psychiatric provider and other outpatient providers regarding above concerns Take medications as prescribed Assessment: Risk assessment at time of discharge:? Patient was interviewed prior to discharge and found to be fully oriented and without any SI or HI. Patient has insight and demonstrates good judgment in terms of wanting to pursue treatment. Patient is not in imminent risk of harm to self or others and has a safety plan that includes presenting to the closest ER or calling 911 if feeling unsafe.? Patient has been observed closely by nursing and unit staff throughout admission; patient has not engaged in any behaviors that suggest dangerousness to self or others and has demonstrated appropriate behaviors and impulse control Discharge Date/Time: 02/01/23 14:15
[2023-02-01] MEDS: Naloxone HCl Nasal TAKE HOME 4 MG SPRAY 8 MG NOSTRILALT (13:57)
== END 2023-02-01 14:15 | disposition home or self-care (01) | DRG 751 ==
LOC: HO.ED 17:30 → HO.PM5 01-30 18:17
PROVIDERS: Emergency Medicine; Admitting Provider Psychiatry & Neurology Psychiatry; Emergency Provider Emergency Medicine; Visit Provider Psychiatry & Neurology Psychiatry
DX: F33.1 Major depressive disorder, recurrent, moderate (principal); R45.851 Suicidal ideations; E78.5 Hyperlipidemia, unspecified; F11.20 Opioid dependence, uncomplicated; F14.10 Cocaine abuse, uncomplicated; F43.10 Post-traumatic stress disorder, unspecified; I10 Essential (primary) hypertension; F17.210 Nicotine dependence, cigarettes, uncomplicated; Z20.822 Contact with and (suspected) exposure to COVID-19; Z71.6 Tobacco abuse counseling; Z87.820 Personal history of traumatic brain injury; Z79.899 Other long term (current) drug therapy
CPT/HCPCS: 36415; 80048; 80053; 80061; 80076; 80307; 81001; 85025; 87635; 93005; 99285; S9485

== ENCOUNTER → 2023-01-30 18:11 | Outpatient (BNV) | payer OTHER, SELFPAY | PROVIDERS: Admitting Provider Psychiatry & Neurology Psychiatry; Emergency Provider Emergency Medicine; Visit Provider Psychiatry & Neurology Psychiatry | DX: F33.1 Major depressive disorder, recurrent, moderate (principal); F43.11 Post-traumatic stress disorder, acute; F14.10 Cocaine abuse, uncomplicated; F11.90 Opioid use, unspecified, uncomplicated; S06.9XAA Unspecified intracranial injury with loss of consciousness status unknown, initial encounter | CPT/HCPCS: 99232 ==

== ENCOUNTER 2024-05-02 17:09 | Emergency (ER) | payer OTHER, SELFPAY ==
[2024-05-02 17:28] VITALS: BP 134/93; PULSE 69; RESP 16; TEMP 36.4; O2SAT 95; BMI 35.7
--- NOTE | 2024-05-02 17:28 | ED_ITS ---
HPI - General Adult General Chief complaint: General Medical Stated complaint: Ran out of medication Time Seen by Provider: 05/02/24 18:04 Source: patient Mode of arrival: ambulatory History of Present Illness HPI narrative: Patient is a 54-year-old male who presents to the emergency department requesting assistance. He reports that he was released from long term today; for [facility], he has been taking Suboxone 16 mg tablets, he was referred to a clinic somewhere in [place], reports that the correctional facility believed that he was going to be there to go to a program. However at the time of release his family ultimately decided that they were going to allow him to live with them and his family picked him up. He does not have a way to get to [place] to continue with his Suboxone locally. He has been unable to get his care transferred to somewhere locally. He denies any recreational drug usage since his release Related Data Previous Rx's ?Medication ?Instructions ?Recorded amoxicillin 500 mg-potassium 1 tab PO BID 6 days #12 tabs 02/01/23 clavulanate 125 mg tablet atorvastatin 20 mg tablet 20 mg PO BEDTIME 30 days #30 tabs 02/01/23 buprenorphine 4 mg-naloxone 1 mg 1 film sublingual DAILY 5 days #5 02/01/23 sublingual film (Suboxone) ea clonidine HCl 0.1 mg tablet 0.1 mg PO BEDTIME 30 days #30 tabs 02/01/23 docusate sodium 100 mg capsule 100 mg PO BEDTIME PRN constipation 02/01/23 30 days #30 caps fluoxetine 20 mg capsule 20 mg PO DAILY 30 days #30 caps 02/01/23 gabapentin 300 mg capsule 300 mg PO TID 30 days #90 caps 02/01/23 lisinopril 10 mg tablet 10 mg PO DAILY 30 days #30 tabs 02/01/23 nicotine 21 mg/24 hr daily 21 mg transdermal DAILY PRN 02/01/23 transdermal patch nicotine craving 30 days #30 ea omeprazole 20 mg capsule,delayed 20 mg PO DAILY@0630 30 days #30 02/01/23 release caps quetiapine 25 mg tablet 25 mg PO Q6H PRN 02/01/23 anxiety/agitation/sleep 30 days #90 tabs trazodone 100 mg tablet See Rx Instructions .Route 02/01/23 .COMPLEX PRN insomnia 30 days #30 tabs buprenorphine 8 mg-naloxone 2 mg 2 tab sublingual DAILY #6 tabs 05/02/24 sublingual tablet Allergies Allergy/AdvReac Type Severity Reaction Status Date / Time No Known Allergies Allergy Verified 05/02/24 17:31 [No Known Allergies*] Review of Systems Review of Systems: Yes all other systems are reviewed and are negative PMFSH Past Medical History Attestation statement: The following information was validated with the patient. Source: old records reviewed Medical History TBI (traumatic brain injury) HTN (hypertension) HLD (hyperlipidemia) Cocaine abuse PTSD (post-traumatic stress disorder) Depression Family History Family History Father Colon cancer, Onset Age: 60 Paternal Grandfather Colon cancer Social History Social History Household Members: Spouse Housing: House Do you presently have visiting nurse or other home services: No Alcohol intake: current Patient Tobacco Use Status: Current everyday Tobacco user Tobacco use type: Cigarette Cigarette Packs Per Day: 0.5 Cigarettes Per Day: 10 e-Cigarette/Vaping Use: Never Used Second Hand Smoke Exposure: Yes Substance Use Type: Crack/Cocaine service: No Sexual orientation: Straight/Heterosexual Physical Exam ED Vital Signs: Vital Signs - 24 hr 05/02/24 17:28 Temperature 97.5 F Pulse Rate 69 Respiratory Rate 16 Blood Pressure 134/93 H Pulse Oximetry 95 Oxygen Delivery Method Room Air BMI result Body Mass Index 35.7 Appearance: Alert.?Oriented to person, place and time. No acute distress.?Normal affect. Eyes: Pupils equal, round and reactive to light.? ENT: Pharynx normal.?? Neck: Normal inspection.? Neck supple.?? CVS: Heart sounds normal. Normal heart rate and rhythm.? Pulses normal.?? Respiratory: No respiratory distress.? Lung sounds clear to auscultation bilaterally?? Abdomen: Soft and non-tender. Normoactive bowel sounds. Skin: Skin warm and dry.? Normal skin color.? Extremities: No lower extremity edema.? Neuro: Moves all extremities spontaneously. Sensation intact bilaterally. CN II- XII intact. No focal neuro deficits. Ambulates with normal steady gait. Course Course Course Narrative: Patient is a 54-year-old male who presents to the emergency department requesting assistance. He reports that he was released from long term today; for [facility], he has been taking Suboxone 16 mg tablets, he was referred to a clinic somewhere in [place], reports that the correctional facility believed that he was going to be there to go to a program. However at the time of release his family ultimately decided that they were going to allow him to live with them and his family picked him up. He does not have a way to get to [place] to continue with his Suboxone locally. He has been unable to get his care transferred to somewhere locally. He denies any recreational drug usage since his release Medical Decision Making Medical Decision Making [facility] Narrative: Patient is a 54-year-old male with past medical history of TBI, hypertension, hyperlipidemia, PTSD, depression, opioid use disorder on Suboxone as per HPI presenting to emergency department requesting assistance with Suboxone. The clinic his care was established with after his release from correctional facility today is not local and he will not be able to get to the facility. He expresses concern about going through withdrawal and does not want to resort to using drugs again. He is requesting assistance with his Suboxone maintenance. Unfortunately, I have been unable to verify dosing from [facility] correctional facility. I consulted with Ana Walker from our [facility], recommends sending prescription for 3 day supply of Suboxone to local pharmacy, and patient may follow-up at the [facility] or [facility]. Discussed with patient that he must present first thing Sunday morning to establish care and treatment. He is calm and cooperative, denies any recreational drug use. Drug abuse screen was obtained only positive for buprenorphine. Differential Diagnosis Differential Diagnoses: The differential diagnosis associated with the presentation includes (Opioid use disorder,) Consult Healthcare Provider Management of the patient was discussed with: Helicopter Dispatcher (See narrative above) Lab Data [facility] Lab Attestation statement: I reviewed the patient's lab results. Labs: Lab Results 05/02/24 Range/Units 18:00 Urine Opiates Screen Not Detected (Not Detect) Ur Buprenorphine Scrn Positive H (Not Detect) ng/mL Ur Oxycodone Screen Not Detected (Not Detect) ng/mL Urine Methadone Screen Not Detected (Not Detect) ng/mL Urine Fentanyl Screen Not Detected (Not Detect) Ur Barbiturates Screen Not Detected (Not Detect) Ur Phencyclidine Scrn Not Detected (Not Detect) Ur Amphetamines Screen Not Detected (Not Detect) U Benzodiazepines Scrn Not Detected (Not Detect) Urine Cocaine Screen Not Detected (Not Detect) U Marijuana (THC) Screen Not Detected (Not Detect) External Record Review External record reviewed: Outpatient record and Other (AGATE SETTER - no conflicts) Prescription Management I considered prescription management with: Other (See narrative above) Chronic Conditions Patient?s care impacted by: Other (See narrative above) Discharge Plan Discharge Clinical Impression: Opioid use disorder Patient Disposition: Home, Self-Care Instructions: Opioid Use Disorder (ED) Additional Instructions: You received your Suboxone dosing at long term today. I have sent prescription to the pharmacy to cover Sunday, Sunday, and Sunday. It is important that you follow-up for further care and treatment, I have provided the contact information including a phone number and address for the [facility] associated with our hospital, another options that you may present to [facility] for assistance with maintaining your Suboxone. Return to emergency department any new or worsening symptoms or concerns Prescriptions: New buprenorphine-naloxone 8-2 mg tablet, sublingual 2 tab sublingual DAILY Qty: 6 0RF No Action amoxicillin-pot clavulanate 500-125 mg Tablet 1 tab PO BID 6 Days Qty: 12 0RF clonidine HCl 0.1 mg Tablet 0.1 mg PO BEDTIME 30 Days Qty: 30 0RF Protocol: Hold for SBP< HOLD for SBP < : 90 buprenorphine-naloxone [Suboxone] 4-1 mg Film 1 film sublingual DAILY 5 Days Qty: 5 0RF trazodone 100 mg tablet See Rx Instructions .ROUTE .COMPLEX PRN (Reason: insomnia) 30 Days Qty: 30 0RF Rx Instructions: take 1/2 to 1 tab at bedtime as needed for insomnia docusate sodium 100 mg Capsule 100 mg PO BEDTIME PRN (Reason: constipation) 30 Days Qty: 30 0RF quetiapine 25 mg Tablet 25 mg PO Q6H PRN (Reason: anxiety/agitation/sleep) 30 Days Qty: 90 0RF atorvastatin 20 mg Tablet 20 mg PO BEDTIME 30 Days Qty: 30 0RF lisinopril 10 mg tablet 10 mg PO DAILY 30 Days Qty: 30 0RF nicotine 21 mg/24 hr Patch 24 Hour 21 mg transdermal DAILY PRN (Reason: nicotine craving) 30 Days Qty: 30 0RF gabapentin 300 mg Capsule 300 mg PO TID 30 Days Qty: 90 0RF omeprazole 20 mg capsule,delayed release(DR/EC) 20 mg PO DAILY@0630 30 Days Qty: 30 0RF fluoxetine 20 mg capsule 20 mg PO DAILY 30 Days Qty: 30 0RF Referrals: [facility] [Provider Group] (OUD - needs suboxone continuation) Print Language: Uzbek
[2024-05-02 18:20] LABS: Amphetamine Screen Urine Not Detected (Not Detect); Barbiturates, Urine Not Detected (Not Detect); Benzodiazepines Screen Urine Not Detected (Not Detect); Buprenorphine Scr Positive (Not Detect); Cannabinoid Screen Urine Not Detected (Not Detect); Cocaine Screen Urine Not Detected (Not Detect); Fentanyl, urine Not Detected (Not Detect); Methadone Screen, Urine Not Detected (Not Detect); Opiate Screen Urine Not Detected (Not Detect); Oxycodone Screen Urine Not Detected (Not Detect); Phencyclidine Screen Urine Not Detected (Not Detect)
[2024-05-02 18:41] VITALS: BP 134/93; PULSE 69; RESP 16; TEMP 36.4; O2SAT 95
== END 2024-05-02 18:41 | disposition home or self-care (01) ==
PROVIDERS: Nurse Practitioner Family; Emergency Provider Internal Medicine
DX: F11.90 Opioid use, unspecified, uncomplicated (principal); I10 Essential (primary) hypertension; E78.5 Hyperlipidemia, unspecified; Z87.820 Personal history of traumatic brain injury; Z79.899 Other long term (current) drug therapy
CPT/HCPCS: 80307; 99282; 99284

== ENCOUNTER 2024-05-18 08:12 | Emergency (ER) | payer OTHER, SELFPAY ==
[2024-05-18 08:14] VITALS: BP 174/95; PULSE 115; RESP 20; TEMP 35.8; O2SAT 96; BMI 32.1
--- NOTE | 2024-05-18 08:32 | ED_ITS ---
HPI - Psych General Chief Complaint: Psychiatric Symptoms Stated Complaint: Crisis Time Seen by Provider: 05/18/24 08:24 Source: patient Mode of arrival: ambulatory Limitations: no limitations History of Present Illness ED Provider: GABE ESCAMILLA Narrative: 54 yo male with PMH of TBI, depression, opiate use disorder, cocaine use disorder, HTN, HLD, here with c/o getting out of [facility] a week ago now no medications for 1 week went to [facility] and they told him his [facility] was not up to date. He notes he has been using cocaine he feels depressed and has vague SI. He states he doesn't know what to do. MD complaint: suicidal ideation and feels depressed Onset (ago): week(s) (1) Duration: getting worse History of same: Yes Relieving factors: none Exacerbating factors: drug use Context: recent drug abuse and not taking psychiatric medications Associated psychiatric symptoms: depression and suicidal ideation Associated symptoms: denies other symptoms Treatments prior to arrival: none Related Data Previous Rx's ?Medication ?Instructions ?Recorded amoxicillin 500 mg-potassium 1 tab PO BID 6 days #12 tabs 02/01/23 clavulanate 125 mg tablet atorvastatin 20 mg tablet 20 mg PO BEDTIME 30 days #30 tabs 02/01/23 buprenorphine 4 mg-naloxone 1 mg 1 film sublingual DAILY 5 days #5 02/01/23 sublingual film (Suboxone) ea clonidine HCl 0.1 mg tablet 0.1 mg PO BEDTIME 30 days #30 tabs 02/01/23 docusate sodium 100 mg capsule 100 mg PO BEDTIME PRN constipation 02/01/23 30 days #30 caps fluoxetine 20 mg capsule 20 mg PO DAILY 30 days #30 caps 02/01/23 gabapentin 300 mg capsule 300 mg PO TID 30 days #90 caps 02/01/23 lisinopril 10 mg tablet 10 mg PO DAILY 30 days #30 tabs 02/01/23 nicotine 21 mg/24 hr daily 21 mg transdermal DAILY PRN 02/01/23 transdermal patch nicotine craving 30 days #30 ea omeprazole 20 mg capsule,delayed 20 mg PO DAILY@0630 30 days #30 02/01/23 release caps quetiapine 25 mg tablet 25 mg PO Q6H PRN 02/01/23 anxiety/agitation/sleep 30 days #90 tabs trazodone 100 mg tablet See Rx Instructions .Route 02/01/23 .COMPLEX PRN insomnia 30 days #30 tabs buprenorphine 8 mg-naloxone 2 mg 2 tab sublingual DAILY #6 tabs 05/02/24 sublingual tablet Allergies Allergy/AdvReac Type Severity Reaction Status Date / Time No Known Allergies Allergy Verified 05/18/24 08:17 [No Known Allergies*] Review of Systems Review of Systems: Constitutional : No Fever, No Chills ENT/Mouth : No Ear Pain, No Nasal Congestion, No sore throat Eyes: No Eye Pain, No Swelling, No Redness Cardiovascular : No Chest Pain, No SOB Respiratory : No Cough, No Sputum, No Dyspnea Gastrointestinal : No Nausea, No Vomiting, No Diarrhea, No Hematochezia, No Melena Genitourinary : No Dysuria, No Urinary Frequency, No Hematuria Musculoskeletal : No Myalgias Skin : No Skin Lesions, No rash Neuro : No Weakness, No Numbness, No Paresthesias, No Dizziness, No Headache Psych : positive Anxiety, positive Depression, positive SI no HI All other systems reviewed and are negative PMFSH Past Medical History Attestation statement: The following information was validated with the patient. Source: old records reviewed Medical History TBI (traumatic brain injury) HTN (hypertension) HLD (hyperlipidemia) Cocaine abuse PTSD (post-traumatic stress disorder) Depression Family History Family History Father Colon cancer, Onset Age: 60 Paternal Grandfather Colon cancer Social History Social History Household Members: Spouse Housing: House Do you presently have visiting nurse or other home services: No Alcohol intake: current Patient Tobacco Use Status: Current everyday Tobacco user Tobacco use type: Cigarette Cigarette Packs Per Day: 0.5 Cigarettes Per Day: 10 e-Cigarette/Vaping Use: Never Used Second Hand Smoke Exposure: Yes Substance Use Type: Crack/Cocaine service: No Sexual orientation: Straight/Heterosexual Physical Exam Vital Signs: Vital Signs: Last Vital Signs Temp 96.5 F L 05/18/24 08:14 Pulse 115 H 05/18/24 08:14 Resp 20 05/18/24 08:14 BP 174/95 H 05/18/24 08:14 Pulse Ox 96 05/18/24 08:14 O2 Del Method Room Air 05/18/24 08:14 BMI result Body Mass Index 32.1 Appearance: Alert. Oriented X3. No acute distress. Eyes: Pupils equal, round and reactive to light. ENT: Pharynx normal. Neck: Normal inspection. Neck supple. CVS: tachycardic heart rate and rhythm. Pulses normal. Respiratory: No respiratory distress. Breath sounds normal. Abdomen: Soft and nontender. Skin: Skin warm and dry. Normal skin color. Normal skin turgor. Extremities: No lower extremity edema. No calf ttp Neuro: Oriented X 3. No motor deficit. No sensory deficit. Cn2-12 intact Medical Decision Making Medical Decision Making MDM Narrative: 54 yo male with PMH of TBI, depression, opiate use disorder, cocaine use disorder, HTN, HLD, here with c/o depression and vague SI cannot get his medications - no medical complaints at this time is asking for anxiety medications, labs, EKG, CARE team consult Differential Diagnosis Differential Diagnoses: The differential diagnosis associated with the presentation includes substance abuse, lack of housing, depression Admission/Observation Consideration of admission/observation: Escalation of care including admission/observation considered physician observation started at 833am Consult Healthcare Provider Management of the patient was discussed with: Behavioral Health Provider Lab Data [facility] Lab Attestation statement: I reviewed the patient's lab results. Independent Interpretation I performed an independent interpretation of an: EKG Interpretation: Rate: Rhythm: [place]: Normal P waves. Normal ZAINAB. Normal QRS complex. ST T wave : qTC: prior studies: The study has been interpreted contemporaneously by me. . External Record Review External record reviewed: Inpatient record and Outpatient record Social Determinants Patient?s care significantly limited by Social Determinants of Health including: Problems related to primary support group Discharge Plan Discharge Clinical Impression: Depression, Cocaine use disorder Patient Disposition: Still a Patient Prescriptions: No Action amoxicillin-pot clavulanate 500-125 mg Tablet 1 tab PO BID 6 Days Qty: 12 0RF clonidine HCl 0.1 mg Tablet 0.1 mg PO BEDTIME 30 Days Qty: 30 0RF Protocol: Hold for SBP< HOLD for SBP < : 90 buprenorphine-naloxone [Suboxone] 4-1 mg Film 1 film sublingual DAILY 5 Days Qty: 5 0RF trazodone 100 mg tablet See Rx Instructions .ROUTE .COMPLEX PRN (Reason: insomnia) 30 Days Qty: 30 0RF Rx Instructions: take 1/2 to 1 tab at bedtime as needed for insomnia docusate sodium 100 mg Capsule 100 mg PO BEDTIME PRN (Reason: constipation) 30 Days Qty: 30 0RF quetiapine 25 mg Tablet 25 mg PO Q6H PRN (Reason: anxiety/agitation/sleep) 30 Days Qty: 90 0RF atorvastatin 20 mg Tablet 20 mg PO BEDTIME 30 Days Qty: 30 0RF lisinopril 10 mg tablet 10 mg PO DAILY 30 Days Qty: 30 0RF nicotine 21 mg/24 hr Patch 24 Hour 21 mg transdermal DAILY PRN (Reason: nicotine craving) 30 Days Qty: 30 0RF gabapentin 300 mg Capsule 300 mg PO TID 30 Days Qty: 90 0RF omeprazole 20 mg capsule,delayed release(DR/EC) 20 mg PO DAILY@0630 30 Days Qty: 30 0RF fluoxetine 20 mg capsule 20 mg PO DAILY 30 Days Qty: 30 0RF buprenorphine-naloxone 8-2 mg tablet, sublingual 2 tab sublingual DAILY Qty: 6 0RF Print Language: Citizen [place]
[2024-05-18] MEDS: LORazepam 1 MG TABLET 2 MG PO (08:49)
[2024-05-18 09:14] LABS: MANUAL DIFF FLAG NO
[2024-05-18 09:17] LABS: Basophils Percent Auto 0.4 % (0-2); Eosinophils Absolute Auto 0.1 X10*3/uL (0.0-0.4); Eosinophils Percent Auto 1.5 % (0-4); Hemoglobin 13.8 g/dl (14.0-18.0); Imm Gran Abs Auto 0.03 X10*3/uL (0.00-0.03); Imm Gran Pct Auto 0.4 % (0.0-0.4); Lymphocytes Absolute Auto 2.1 X10*3/uL (1.2-4.9); Lymphocytes Percent Auto 24.2 % (20-40); Mean Corpuscular HGB Conc 35.4 g/dl (31.0-36.0); Mean Corpuscular Hemoglobin 28.2 pg (27.0-33.0); Mean Corpuscular Volume 79.6 fL (80.0-98.0); Mean Platelet Volume 11.5 fL (9.4-12.4); Monocytes Absolute Auto 0.5 X10*3/uL (0.1-1.2); Monocytes Percent Auto 6.3 % (2-11); Neutrophils Absolute Auto 5.7 x10*3/uL (2.0-8.3); Neutrophils Percent Auto 67.2 % (45-73); Platelet Count 277 X10*3/uL (160-400); Red Cell Distribution Width 15.4 % (11.0-16.0); White Blood Count 8.5 X10*3/uL (4.8-10.8)
[2024-05-18 09:27] VITALS: RESP 16
[2024-05-18 09:30] LABS: Anion Gap 14 (12-20); Blood Urea Nitrogen 13 mg/dL (9-16); Carbon Dioxide 26 mmol/L (22-29); Chloride 107 mmol/L (96-108); Creatinine Clr Calc Pharmacy 103.1; Estimated Glomerular Filt Rate > 60; Ethanol < 10 mg/dL; Glucose Random 130 mg/dL (60-115); Potassium 3.1 mmol/L (3.3-5.1); Sodium 144 mmol/L (135-145)
[2024-05-18 09:53] LABS: Influenza A PCR NEGATIVE (Negative); Influenza B PCR NEGATIVE (Negative); Resp Syncy Virus RNA Qual PCR NEGATIVE (Negative); SARS COV2 PCR INHOUSE NEGATIVE (Negative)
--- NOTE | 2024-05-18 10:32 | PC.NURSE ---
Pt agitated that another patient got a physical room before him, pt agitated but has now calmed down and returned to 7
--- NOTE | 2024-05-18 10:47 | PC.NURSE ---
pt reminded again that we need him to give a urine sample to be evaluated by CARE team Patient also declined EKG
--- NOTE | 2024-05-18 12:48 | PC.NURSE ---
Pt asked two more times to provide a urine sample so CARE team can see him, pt refusing to acknowledge request. CARE Team clinician Loren went in to speak with the patient and explain to the patient that we needed and urine sample to be evaluated. Pt became agitated, yelling at CARE team clinician and then this RN. Pt began swearing and verbally threatening. Pt did give urine sample after taking a moment to calm down however, once again became agitated and verbally threatening. Pt requesting to speak to nursing fuel system maintenance supervisor, Marina vocational aide aware
[2024-05-18 12:57] LABS: Appearance Urine Turbid; Color Urine Yellow; Glucose Urine UA Negative (Negative); Leukocyte Esterase Urine Negative (Negative); Nitrite Urine Negative (Negative); UMIC TRIGGER UACC YES; Urine Blood Negative (Negative); Urine Ketones Trace mg/dL (Negative); Urine Protein 30 (1+) mg/dL (Neg-Trace)
[2024-05-18 13:07] LABS: Amphetamine Screen Urine Not Detected (Not Detect); Barbiturates, Urine Not Detected (Not Detect); Benzodiazepines Screen Urine Not Detected (Not Detect); Buprenorphine Scr Not Detected (Not Detect); Cannabinoid Screen Urine Not Detected (Not Detect); Cocaine Screen Urine POSITIVE (Not Detect); Fentanyl, urine Not Detected (Not Detect); Methadone Screen, Urine Not Detected (Not Detect); Opiate Screen Urine Not Detected (Not Detect); Oxycodone Screen Urine Not Detected (Not Detect); Phencyclidine Screen Urine Not Detected (Not Detect)
[2024-05-18 13:09] LABS: Bacteria Urine None Seen (None Seen); Hyaline Casts Urine 0-2 /LPF (0-2); Other Crystals Urine Present; RBC Urine 0-2 /HPF (0-2); Squamous Epithelial Cell Urine 0-2 /HPF (0-2); WBC Urine 0-5 /HPF (0-5)
--- NOTE | 2024-05-18 14:44 | PC.NURSE ---
Pt refused vitals and EKG
[2024-05-18] MEDS: Potassium Chloride ER 20 MEQ TAB.ER.PRT 40 MEQ PO (15:30)
--- NOTE | 2024-05-18 16:06 | MHC.CARE ---
Patient seen by CARE team and will be inpatient bed search currently. ED provider Dr. Floridalma Lo notified and in agreement with disposition.
--- NOTE | 2024-05-18 16:48 | PHA.MEDREC ---
Addendum entered by Nancy Mccoy [facility] 05/19/24 09:21: Spoke to Alisha CHANG at [facility], facility has no record of patients medications. Addendum entered by Nancy Mcocy [facility] 05/19/24 08:57: Called [facility] ([phone]) left a voicemail for the RN to call me back regarding patients medications Original Note: Pharmacy Consult ? Medication Reconciliation Pharmacy has completed the medication reconciliation. Med rec initially done by RN in bh unit utilizing last discharge list from this facility and conversation with patient. He claims to have no changes to medications since his last stay here discharge date 05/02/24. Pt was discharged from [facility] last week and has not had home medications since then being unable to obtain from [facility] after release from corrections. Will request pharmacy to follow up with corrections Sunday morning as they are unavailable on weekend but for now left home med list as it is.
[2024-05-18 19:59] VITALS: BP 138/91; PULSE 95; RESP 20; TEMP 36.7; O2SAT 95
[2024-05-18 20:00] VITALS: BP 138/91
[2024-05-18] MEDS: QUEtiapine Fumarate 25 MG TABLET PO (20:00)
[2024-05-18] MEDS: Atorvastatin Calcium 20 MG TABLET PO (20:00)
[2024-05-18] MEDS: Gabapentin 300 MG CAPSULE PO (20:00)
[2024-05-18] MEDS: cloNIDine HCL 0.1 MG TABLET PO (20:00)
[2024-05-18] MEDS: traZODone HCL 100 MG TABLET 50 MG PO (20:00)
--- NOTE | 2024-05-19 | ECG_ITS ---
Test Reason : R/O PROLONG QT Blood Pressure : / mmHG Vent. Rate : 087 BPM Atrial Rate : 087 BPM P-R Int : 180 ms QRS Dur : 098 ms QT Int : 384 ms P-R-T Axes : 067 023 059 degrees QTc Int : 462 ms Normal sinus rhythm Normal ECG When compared with ECG of 30-JAN-2023 11:23, No significant change was found Referred By: Generic ED Physician Electronically Signed By:Irvin Cardoso
--- NOTE | 2024-05-19 00:15 | MHC.EDTECH ---
pt continues to refuse EKG. RN AWARE
[2024-05-19 06:28] VITALS: BP 125/86; PULSE 82; RESP 18; O2SAT 97
[2024-05-19] MEDS: Omeprazole 20 MG CAPSULE.DR PO (06:40)
[2024-05-19 09:05] VITALS: BP 146/95; PULSE 86
[2024-05-19] MEDS: Gabapentin 300 MG CAPSULE PO ×2 (09:29→15:07)
[2024-05-19 09:30] VITALS: BP 156/95
[2024-05-19] MEDS: FLUoxetine HCl 20 MG CAPSULE PO (09:30)
[2024-05-19] MEDS: lisinopriL 10 MG TABLET PO (09:30)
--- NOTE | 2024-05-19 09:39 | PC.NURSE ---
Pt is requesting tums- - pt refused suboxne
[2024-05-19] MEDS: Calcium Carbonate 750 MG TAB.CHEW PO (10:57)
--- NOTE | 2024-05-19 11:18 | PC.NURSE ---
care team at bedside- pt requesting to leave the hospital
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
[2024-05-19] MEDS: Buprenorphine/Naloxone 4/1 mg FILM 1 FILM SUBLINGUAL (12:32)
--- NOTE | 2024-05-19 13:57 | MHC.CARE ---
Patient has been seen by the CARE TEAM and referred to [facility]. The referral has been completed by the RAD Team.
[2024-05-19 15:48] VITALS: BP 156/95; PULSE 86; RESP 20; TEMP 36.7; O2SAT 97
== END 2024-05-19 15:49 | disposition home or self-care (01) ==
PROVIDERS: Emergency Provider Emergency Medicine
DX: F33.1 Major depressive disorder, recurrent, moderate (principal); F43.10 Post-traumatic stress disorder, unspecified; F14.10 Cocaine abuse, uncomplicated; R45.851 Suicidal ideations; I10 Essential (primary) hypertension; F17.210 Nicotine dependence, cigarettes, uncomplicated; Z03.818 Encounter for observation for suspected exposure to other biological agents ruled out; Z79.899 Other long term (current) drug therapy; Z51.81 Encounter for therapeutic drug level monitoring; Z71.51 Drug abuse counseling and surveillance of drug abuser
CPT/HCPCS: 0241U; 36415; 80048; 80307; 81001; 85025; 93005; 99285; S9485

== ENCOUNTER → 2024-05-18 08:46 | Outpatient (BNV) | payer OTHER, SELFPAY | PROVIDERS: Emergency Provider Emergency Medicine; Visit Provider Psychiatry & Neurology Psychiatry | DX: F33.1 Major depressive disorder, recurrent, moderate (principal); F43.10 Post-traumatic stress disorder, unspecified; F14.10 Cocaine abuse, uncomplicated | CPT/HCPCS: 99283 ==

== ENCOUNTER → 2024-05-19 08:46 | Outpatient (BNV) | payer OTHER, SELFPAY | PROVIDERS: Emergency Provider Emergency Medicine; Visit Provider Internal Medicine Cardiovascular Disease | DX: I10 Essential (primary) hypertension (principal) | CPT/HCPCS: 93010 ==

== ENCOUNTER 2024-08-20 22:56 | Inpatient (IN) | payer OTHER, SELFPAY ==
[2024-08-20 22:59] VITALS: BP 133/73; PULSE 123; RESP 20; TEMP 36.7; O2SAT 96; BMI 34.0
--- OUTSIDE RECORDS SUMMARY | 2024-08-20 23:41 | XMS_ITS | Clinical Summary ---
Author Organization [facility] Address [address] [place] [address] Care Team Providers Care Residential Glazier Name Role Phone Patient, Has No Pcp Or Ref Primary Care Provider Unavailable Allergies No known active allergies Medications * This document contains information received from the source organization and may not represent a complete record from that organization. simvastatin (ZOCOR) 20 mg tablet Take 1 tablet (20 mg total) by mouth nightly. 30 tablet 08/16/2017 Active lisinopril (PRINIVIL,ZESTR IL) 10 mg tablet Take 1 tablet (10 mg total) by mouth daily. 30 tablet 08/16/2017 Active QUEtiapine (SEROquel) 25 mg tablet Take 1 tablet (25 mg total) by mouth daily. 30 tablet 08/16/2017 Active FLUoxetine (PROzac) 20 mg capsule Take 1 capsule (20 mg total) by mouth daily. 30 capsule 08/16/2017 Active omeprazole (PriLOSEC) 20 mg capsule Take 1 capsule (20 mg total) by mouth daily. 30 capsule 08/16/2017 Active Active Problems Problem Noted Date Diagnosed Date Adjustment disorder with depressed mood 08/15/19 18 Cocaine use 08/15/2017 Social History Tobacco Use Types Packs/Day Years Used Date Smoking Tobacco: Every Day Cigarettes Smokeless Tobacco: Never Alcohol Use Standard Drinks/Week Comments No 0 (1 standard drink = 0.6 oz pur e alcohol) Sex and Gender Information Value Date Recorded Sex Assigned at Male 08/15/2017 6:48 PM EST Legal Sex Male 11:13 AM EDT Gender Identity Male 08/15/2017 6:48 PM EST Sexual Orientation Not on file Last Filed Vital Signs Vital Sign Reading Time Taken Comments Blood Pressure 117/73 11/21/2022 8:21 AM EDT Pulse 77 11/21/2022 8:21 AM EDT Temperature 36.6 ??C (97.8 ??F) 11/21/2022 8:21 AM ED T Respiratory Rate 16 11/21/2022 8:21 AM EDT Oxygen Saturation 96% 11/21/2022 8:21 AM EDT Inhaled Oxygen Concentration - - Weight 95.3 kg (210 lb) 11/19/2022 11:09 PM EDT Height 175.3 cm (5' 9 ) 11/19/2022 11:09 PM EDT Body Mass Index 31.01 11/19/2022 11:09 PM EDT Plan of Treatment Health Maintenance Due Date Last Done Comments Cologuard 1972 Colon Cancer Screening 1972 Colonoscopy 1972 FOBT / Fit Test 1972 HIV Screening 1972 Hepatitis C Screening 1972 Sigmoidoscopy 1972 Hepatitis B Vaccines (1 of 3 - 19+ 3-dose series) 01/1991 Pneumococcal Vaccine: 50+ Years (1 of 2 - PCV) 991 DTaP,Tdap,and Td Vaccines (1 - Tdap) 01/23/1994 CT Lung Cancer Screening (Baseline) 01/23/202202/04 Zoster Vaccines (1 of 2) 01/23/2022 COVID-19 Vaccine (1 - 2023- season) 2024 Influenza Vaccine (#1) 2024 Alcohol/Substance Use Screening 06/18/2024 Depression Evaluation 06/18/2024 Social Drivers of Health Annual Screening 06/18/2024 RSV Vaccine (60+ years old a nd patients) (1 - 1-dose 75+ series) 01/23/2047 Insurance [employer] Advance Directives * Full Code (Latest Code Status on File) Date Activated Date Inactivated Comments 08/15/2017 7:26 PM 08/16/2017 4:29 PM Care Teams Residential Glazier Relationship Specialty Start Date End Date Patient, Has No Pcp Or Ref DO NOT EDIT THIS RECORD VIA PROVIDER ON THE FLY PCP - General Folded Cloth Taper 11/19/22
--- OUTSIDE RECORDS SUMMARY | 2024-08-20 23:41 | XMS_ITS | Encounter Summary ---
Author Organization [facility] Address [address] [facility] [address] [place] [address] Phone Care Team Providers Care Health And Safety Trainer Name Role Phone Norma Johnson DO Primary Care Provider Indira Castañeda MD Unavailable Encounter Details Date Type Department Care Team (Late st Contact Info) Description 03/08/2020 Procedure Pass [facility] [address] [place] [address] Social History Tobacco Use Types Packs/Day Years Used Date Smoking Tobacco: Every Day Cigarettes 1 15 Smokeless Tobacco: Never Alcohol Use Standard Drinks/Week Comments Not Currently 0 (1 standard drink = 0.6 oz pur e alcohol) Sex and Gender Information Value Date Recorded Sex Assigned at Not on file Gender Identity Not on file Sexual Orientation Not on file documented as of this encounter Plan of Treatment Not on file documented as of this encounter Visit Diagnoses Not on filedocumented in this encounter Care Teams Health And Safety Trainer Relationship Specialty Start Date End Date Norma Johnson DO [address] [place] [address] [email or web address] PCP - General Hospitalist 03/02/20 Indira Castañeda MD [address] [place] [address] 02/05/20 documented as of this encounter Additional Source Comments The information contained in this document represents components of the legal health record. It is not the complete legal health record.[facility]
--- OUTSIDE RECORDS SUMMARY | 2024-08-20 23:42 | XMS_ITS | Encounter Summary ---
Author Organization [facility] Address [address] [facility] [address] [place] [address] Phone Care Team Providers Care Soap Maker Name Role Phone Unknown, Unknown Primary Care Provider Norma Lemos DO Primary Care Provider [phone] Indira Castañeda MD Unavailable Encounter Details Date Type Department Care Team (Late st Contact Info) Description 02/07/2020 Procedure Pass [facility] Cross Sectional Interventional Radiology [address] [place] [address] Social History Tobacco Use Types Packs/Day Years Used Date Smoking Tobacco: Never Assessed Sex and Gender Information Value Date Recorded Sex Assigned at Not on file Gender Identity Not on file Sexual Orientation Not on file documented as of this encounter Plan of Treatment Not on file documented as of this encounter Visit Diagnoses Not on filedocumented in this encounter Care Teams Soap Maker Relationship Specialty Start Date End Date Unknown, Unknown, PCP - General 02/05/20 03/01/20 Norma Johnson DO [address] [place] [address] PCP - General Hospitalist 03/02/20 Indira Castañeda MD [address] [place] [address] 02/05/20 documented as of this encounter Additional Source Comments The information contained in this document represents components of the legal health record. It is not the complete legal health record.[facility]
--- OUTSIDE RECORDS SUMMARY | 2024-08-20 23:42 | XMS_ITS | Encounter Summary ---
Author Organization [facility] Address [address] [place] [address] Phone Care Team Providers Care Cutter Operator Name Role Phone Unknown, Unknown Primary Care Provider Norma Lemos DO Primary Care Provider [phone] Indira Castañeda MD Unavailable Encounter Details Date Type Department Care Team (Late st Contact Info) Description 02/09/2020 Procedure Pass [facility] [address] [place] [address] Social History Tobacco Use Types Packs/Day Years Used Date Smoking Tobacco: Never Assessed Sex and Gender Information Value Date Recorded Sex Assigned at Not on file Gender Identity Not on file Sexual Orientation Not on file documented as of this encounter Plan of Treatment Not on file documented as of this encounter Visit Diagnoses Not on filedocumented in this encounter Care Teams Cutter Operator Relationship Specialty Start Date End Date Unknown, Unknown, MD PCP - General 02/05/20 03/01/20 Norma Johnson DO [address] [place] [address] [email or web address] PCP - General Hospitalist 03/02/20 Indira Castañeda MD [address] [place] [address] 02/05/20 documented as of this encounter Additional Source Comments The information contained in this document represents components of the legal health record. It is not the complete legal health record.[facility]
--- OUTSIDE RECORDS SUMMARY | 2024-08-20 23:42 | XMS_ITS | Encounter Summary ---
Author Organization [facility] Address [address] [facility] [address] [place] [address] Phone Care Team Providers Care Physical Education Instructor Name Role Phone Unknown, Unknown Primary Care Provider Norma Lemos DO Primary Care Provider [phone] Indira Castañeda MD Unavailable Encounter Details Date Type Department Care Team (Late st Contact Info) Description 03/01/2020 Procedure Pass [facility] [address] [place] [address] Social History Tobacco Use Types Packs/Day Years [...] on filedocumented in this encounter Care Teams Physical Education Instructor Relationship Specialty Start Date End Date Unknown, Unknown, PCP - General 02/05/20 03/01/20 Norma Johnson DO [address] [place] [address] [email or web address] PCP - General Hospitalist 03/02/20 Indira Castañeda MD [address] [place] [address] 02/05/20 documented as of this encounter Additional Source Comments The information contained in this document represents components of the legal health record. It is not the complete legal health record.[facility]
--- OUTSIDE RECORDS SUMMARY | 2024-08-20 23:42 | XMS_ITS | Encounter Summary ---
Author Organization [facility] Address [address] [facility] [address] [place] [address] Phone Care Team Providers Care Dynamometer Tester Name Role Phone Unknown, Unknown Primary Care Provider Norma Lemos DO Primary Care Provider Indira Castañeda MD Unavailable Encounter Details Date Type Department Care Team (Late st Contact Info) Description 02/07/2020 Procedure Pass [facility] Cross Sectional Interventional Radiology [address] [place] [address] Social History Tobacco Use Types Packs/Day Years Used Date Smoking Tobacco: Never Assessed Sex and Gender Information Value Date Recorded Sex Assigned at Not on file Gender Identity Not on file Sexual Orientation Not on file documented as of this encounter Plan of Treatment Not on file documented as of this encounter Visit Diagnoses Not on filedocumented in this encounter Care Teams Dynamometer Tester Relationship Specialty Start Date End Date Unknown, Unknown, PCP - General 02/05/20 03/01/20 Norma Johnson DO [address] [place] [address] PCP - General Hospitalist 03/02/20 Indira Castañeda MD [address] [place] [address] 02/05/20 documented as of this encounter Additional Source Comments The information contained in this document represents components of the legal health record. It is not the complete legal health record.[facility]
--- OUTSIDE RECORDS SUMMARY | 2024-08-20 23:42 | XMS_ITS | Clinical Summary ---
Author Organization [facility] [employer] [address] [place] [address] Care Team Providers Care Food Service Lead Name Role Phone Unavailable Primary Care Provider Unavailabl e Social History Tobacco Use Types Packs/Day Years Used Date Smoking Tobacco: Never Assessed Sex and Gender Information Value Date Recorded Sex Assigned at Not on file Legal Sex Male 2:42 AM EDT Gender Identity Not on file Sexual Orientation Not on file Plan of Treatment Health Maintenance Due Date Last Done Comments Colorectal Cancer: COLONOSCO PY Screening every 10 yrs (or Modifier) 1972 Depression: Screening Annual ly using PHQ-2/9 in Adults 18 yrs or above (or HM Modifier)([facility]) 01/23/1990 Hepatitis C Virus Infection in Adolescents and Adults: Screening (or Modifier) ([facility]) 01/23/1990 SDOH Screening Reminder: Celeste ually for all adults ([facility]) 01/23/1990 Tobacco Smoking Cessation: i n Adults excluding Women: Behavioral and Pharmacotherapy Interventions ([facility]) 01/23/1990 DTaP/Tdap/Td Vaccines ([facility]) (1 - Tdap) 01/23/1991 Lipid Screening: Every 5 yrs for Men aged 35+ (or HM Modifier) ([facility]) 2008 Colorectal Cancer Screening 45 -75 Yrs (or HM Modifier) 01/23/2017 Colorectal Cancer: FLEXIBLE SIGMOIDOSCOPY Screening every 5 yrs 01/23/2017 Colorectal Cancer: Fecal Immunochemical Test (FIT) Annually [facility] 01/23/2017 Colorectal Cancer: High-sens itivity gFOBT Screening Annually [facility] 01/23/2017 Colorectal Cancer: Stool Col oguard Screening every 3 yrs 01/23/2017 Colorectal Cancer:CT Colonog sarah Screening every 5 yrs 01/23/2017 Zoster/Shingles Vaccine Seri es Screening: Adults aged 18+ yrs (or HM Modifiers)([facility]) (1 of 2) 01/23/2022 Flu Vaccination: Yearly for ages 18mos through 64 years (or Modifier)([facility]) 01/17/2024 COVID-19 Vaccine Screening: Initial Series and Booster Status ([facility]) (2023- season) 2024 Pneumococcal Vaccination Scr eening: Pts 0-19 & 19-64 yrs of age ([facility]) Aged Out No longer eligible based on patient's age to complete this topic Medical Devices Not on file
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
--- OUTSIDE RECORDS SUMMARY | 2024-08-20 23:42 | XMS_ITS | Encounter Summary ---
Author Organization [facility] Address [address] [place] [address] [place] [address] Phone Care Team Providers Care Repairer Resistance Welding Machines Name Role Phone Unknown, Unknown Primary Care Provider Norma Lemos DO Primary Care Provider [phone] Indira Castañeda MD Unavailable Encounter Details Date Type Department Care Team (Late st Contact Info) Description 02/19/2020 Procedure Pass [facility] Periop [address] [place] [address] Social History Tobacco Use Types Packs/Day Years Used Date Smoking Tobacco: Unknown Smokeless Tobacco: Never Alcohol Use Standard Drinks/Week [...] on filedocumented in this encounter Care Teams Repairer Resistance Welding Machines Relationship Specialty Start Date End Date Unknown, Unknown, PCP - General 02/05/20 03/01/20 Norma Johnson DO [address] [place] [address] PCP - General Hospitalist 03/02/20 Indira Castañeda MD [address] [place] [address] 02/05/20 documented as of this encounter Additional Source Comments The information contained in this document represents components of the legal health record. It is not the complete legal health record.[facility]
--- OUTSIDE RECORDS SUMMARY | 2024-08-20 23:42 | XMS_ITS | Clinical Summary ---
Author Organization [facility] [place] [address] Care Team Providers Care Truck Service Manager Name Role Phone None Primary Care Provider Unavailabl e Social History Tobacco Use Types Packs/Day Years Used Date Smoking Tobacco: Never Assessed Sex and Gender Information Value Date Recorded Sex Assigned at Not on file Gender Identity Not on file Sexual Orientation Not on file Plan of Treatment Health Maintenance Due Date Last Done Comments CT Colonography 1972 Colonoscopy 1972 Colorectal Cancer Screening 1972 FIT DNA 1972 FIT 1972 Sigmoidoscopy (10 year) with FIT yearly 1972 Sigmoidoscopy 1972 HIV screen 01/23/1990 Hepatitis C Screening 01/23/1990 Lipid Screening 01/23/1990 Hepatitis B vaccine (0-59 yrs) (1) 01/23/1991 Tetanus/Diphtheria/Pertussis Vaccines (1 - Tdap) 01/23 Pneumoccocal Vaccine: 50+ (1 of 1 - PCV) 01/23/2022 Zoster vaccine (1 of 2) 01/23/2022 Covid-19 Vaccine (1 - 2023- season) 2024 Influenza (Flu) vaccine (1 o f 1 - Influenza standard series) 02/17/2024 Care Teams Truck Service Manager Relationship Specialty Start Date End Date None None PCP - General 02/04/20
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
--- OUTSIDE RECORDS SUMMARY | 2024-08-20 23:43 | XMS_ITS | Encounter Summary ---
Author Organization [facility] Address [address] [facility] [address] [place] [phone] Phone Care Team Providers Care Computational Mathematician Name Role Phone Unknown, Unknown Primary Care Provider Norma Lemso DO Primary Care Provider [phone] Indira Castañeda MD Unavailable Encounter Details Date Type Department Care Team (Late st Contact Info) Description 02/07/2020 Procedure Pass [facility] Cross Sectional Interventional Radiology [address] [place] [address] Social History Tobacco Use Types Packs/Day Years Used Date Smoking Tobacco: Never Assessed Sex and Gender Information Value Date Recorded Sex Assigned at Not on file Gender Identity Not on file Sexual Orientation Not on file documented as of this encounter Plan of Treatment Not on file documented as of this encounter Visit Diagnoses Not on filedocumented in this encounter Care Teams Computational Mathematician Relationship Specialty Start Date End Date Unknown, Unknown, PCP - General 02/05/20 03/01/20 Norma Johnson DO [address] [place] [address] PCP - General Hospitalist 03/02/20 Indira Castañeda MD [address] [place] [address] 02/05/20 documented as of this encounter Additional Source Comments The information contained in this document represents components of the legal health record. It is not the complete legal health record.[facility]
--- OUTSIDE RECORDS SUMMARY | 2024-08-20 23:43 | XMS_ITS | Encounter Summary ---
Author Organization [facility] Address [address] [place] [address] [place] [phone] Phone Care Team Providers Care Lock Technician Name Role Phone Unknown, Unknown Primary Care Provider Norma Lemos DO Primary Care Provider [phone] Indira Castañeda MD Unavailable Encounter Details Date Type Department Care Team (Late st Contact Info) Description 02/05/[address] [facility] Periop [address] [place] [address] Social History Tobacco Use Types Packs/Day Years Used Date Smoking Tobacco: Never Assessed Sex and Gender Information Value Date Recorded Sex Assigned at Not on file Gender Identity Not on file Sexual Orientation Not on file documented as of this encounter Plan of Treatment Not on file documented as of this encounter Visit Diagnoses Not on filedocumented in this encounter Additional Health Concerns Infection Onset Date Last Indicated Resolved Time CoV-Risk Comment:Per note documentation 02/05/2020 02/05/2020 0 3:40 AM EDT documented as of this encounter Care Teams Lock Technician Relationship Specialty Start Date End Date Unknown, Unknown, PCP - General 02/05/20 03/01/20 Norma Johnson DO [address] [place] [address] [email or web address] PCP - General Hospitalist 03/02/20 Indira Castañeda MD [address] [place] [address] 02/05/20 documented as of this encounter Additional Source Comments The information contained in this document represents components of the legal health record. It is not the complete legal health record.[facility]
--- OUTSIDE RECORDS SUMMARY | 2024-08-20 23:43 | XMS_ITS | Encounter Summary ---
Author Organization [facility] Address [address] [facility] [address] [place] [phone] Phone Care Team Providers Care Cleaners Name Role Phone Unknown, Unknown Primary Care Provider Norma Lemos DO Primary Care Provider [phone] Indira Castañeda MD Unavailable Encounter Details Date Type Department Care Team (Late st Contact Info) Description 02/05/2020 Procedure Pass [facility] [address] [place] [address] Social History Tobacco Use Types Packs/Day Years [...] documented as of this encounter Care Teams Cleaners Relationship Specialty Start Date End Date Unknown, Unknown, PCP - General 02/05/20 03/01/20 Norma Johnson DO [address] [place] [address] [email or web address] PCP - General Hospitalist 03/02/20 Indira Castañeda MD [address] [place] [address] 02/05/20 documented as of this encounter Additional Source Comments The information contained in this document represents components of the legal health record. It is not the complete legal health record.[facility]
--- OUTSIDE RECORDS SUMMARY | 2024-08-20 23:43 | XMS_ITS | Encounter Summary ---
Author Organization [facility] Address [address] [facility] [address] [place] [phone] Phone Care Team Providers Care Library Helper Name Role Phone Unknown, Unknown Primary Care Provider Norma Lemos DO Primary Care Provider [phone] Indira Castañeda MD Unavailable Encounter Details Date Type Department Care Team (Late st Contact Info) Description 02/05/2020 Procedure Pass [facility] [address] [place] [address] Social History Tobacco Use Types Packs/Day Years [...] documented as of this encounter Care Teams Library Helper Relationship Specialty Start Date End Date Unknown, Unknown, PCP - General 02/05/20 03/01/20 Norma Johnson DO [address] [place] [address] [email or web address] PCP - General Hospitalist 03/02/20 Indira Castañeda MD [address] [place] [address] 02/05/20 documented as of this encounter Additional Source Comments The information contained in this document represents components of the legal health record. It is not the complete legal health record.[facility]
--- OUTSIDE RECORDS SUMMARY | 2024-08-20 23:43 | XMS_ITS | Encounter Summary ---
Author Organization [facility] Address [address] [facility] [address] [place] [address] Phone Care Team Providers Care Plasterer Foreman Name Role Phone Unknown, Unknown Primary Care Provider Norma Lemos DO Primary Care Provider [phone] Indira Castañeda MD Unavailable Encounter Details Date Type Department Care Team (Late st Contact Info) Description 02/05/2020 Procedure Pass [facility] [address] [place] [address] Social History Tobacco Use Types Packs/Day Years [...] documented as of this encounter Care Teams Plasterer Foreman Relationship Specialty Start Date End Date Unknown, Unknown, PCP - General 02/05/20 03/01/20 Norma Johnson DO [address] [place] [address] [email or web address] PCP - General Hospitalist 03/02/20 Indira Castañeda MD [address] [place] [address] 02/05/20 documented as of this encounter Additional Source Comments The information contained in this document represents components of the legal health record. It is not the complete legal health record.[facility]
[2024-08-21 01:29] LABS: Basophils Absolute Auto 0.1 X10*3/uL (0.0-0.2); Basophils Percent Auto 0.6 % (0-2); Eosinophils Absolute Auto 0.2 X10*3/uL (0.0-0.4); Eosinophils Percent Auto 2.7 % (0-4); Hematocrit 36.7 % (42.0-52.0); Imm Gran Abs Auto 0.03 X10*3/uL (0.00-0.03); Imm Gran Pct Auto 0.3 % (0.0-0.4); Lymphocytes Absolute Auto 3.1 X10*3/uL (1.2-4.9); MANUAL DIFF FLAG NO; Mean Corpuscular HGB Conc 35.4 g/dl (31.0-36.0); Mean Corpuscular Hemoglobin 28.6 pg (27.0-33.0); Mean Corpuscular Volume 80.7 fL (80.0-98.0); Mean Platelet Volume 11.1 fL (9.4-12.4); Monocytes Absolute Auto 0.6 X10*3/uL (0.1-1.2); Monocytes Percent Auto 6.9 % (2-11); Neutrophils Absolute Auto 4.8 x10*3/uL (2.0-8.3); Neutrophils Percent Auto 54.5 % (45-73); Platelet Count 297 X10*3/uL (160-400); Red Blood Count 4.55 X10*6/uL (4.60-5.80); Red Cell Distribution Width 14.3 % (11.0-16.0); White Blood Count 8.9 X10*3/uL (4.8-10.8)
--- NOTE | 2024-08-21 01:53 | ED_ITS ---
HPI - Psych General Chief Complaint: Psychiatric Symptoms Stated Complaint: CRISIS Time Seen by Provider: 08/21/24 01:33 Source: patient Mode of arrival: ambulatory Limitations: no limitations History of Present Illness ED Provider: Dr. Ana Sky HPI Narrative: patient comes to emergency room stating that he is hearing voices, seeing horses in his apartment, feels paranoid, states that his enemies, the police a constantly watching him and wishing that he gets forearm. patient admits that he has been using cocaine. Patient states that this is the 1st time that he is having hallucinations, it has been getting worse throughout the last 3 weeks. Patient denies any history of schizophrenia to his knowledge. patient states that he stopped taking all of his medications couple of weeks ago. Patient states that he admits that since he started using drugs again, he stopped caring about taking medications. Also, patient has noted that he seems to be more depressed, not taking care of himself, no taking showers we will keeping himself cleaned. Patient states that he would like to be started on his meds again Related Data Previous Rx's ?Medication ?Instructions ?Recorded atorvastatin 20 mg tablet 20 mg PO BEDTIME 30 days #30 tabs 02/01/23 buprenorphine 4 mg-naloxone 1 mg 1 film sublingual DAILY 5 days #5 02/01/23 sublingual film (Suboxone) ea clonidine HCl 0.1 mg tablet 0.1 mg PO BEDTIME 30 days #30 tabs 02/01/23 docusate sodium 100 mg capsule 100 mg PO BEDTIME PRN constipation 02/01/23 30 days #30 caps fluoxetine 20 mg capsule 20 mg PO DAILY 30 days #30 caps 02/01/23 gabapentin 300 mg capsule 300 mg PO TID 30 days #90 caps 02/01/23 lisinopril 10 mg tablet 10 mg PO DAILY 30 days #30 tabs 02/01/23 nicotine 21 mg/24 hr daily 21 mg transdermal DAILY PRN 02/01/23 transdermal patch nicotine craving 30 days #30 ea omeprazole 20 mg capsule,delayed 20 mg PO DAILY@0630 30 days #30 02/01/23 release caps quetiapine 25 mg tablet 25 mg PO Q6H PRN 02/01/23 anxiety/agitation/sleep 30 days #90 tabs trazodone 100 mg tablet See Rx Instructions .Route 02/01/23 .COMPLEX PRN insomnia 30 days #30 tabs Allergies Allergy/AdvReac Type Severity Reaction Status Date / Time No Known Allergies Allergy Verified 08/20/24 23:01 [No Known Allergies*] Review of Systems 2 Review of Systems: Constitutional : No Weight loss, No Fever, No Chills, No Night Sweats, No Fatigue, No Malaise ENT/Mouth : No Hearing loss, No Ear Pain, No Nasal Congestion, No Sinus Pain, No Hoarseness, No sore throat, No Rhinorrhea, No Swallowing Difficulty Eyes: No Eye Pain, No Swelling, No Redness, No Foreign Body, No Discharge, No Vision Changes Cardiovascular : No Chest Pain, No SOB, No Dyspnea on Exertion, No Orthopnea, No Edema, No Palpitations Respiratory : No Cough, No Sputum, No Wheezing, No Smoke Exposure, No Dyspnea Gastrointestinal : No Nausea, No Vomiting, No Diarrhea, No Constipation, No abdominal Pain, No Hematochezia, No Melena Genitourinary : no irregular bleeding, No Dysuria, No Urinary Frequency, No Hematuria, No Urinary Incontinence, No Urgency, No Flank Pain, No Urinary Flow Changes, No Hesitancy Musculoskeletal : No joint pain, No Myalgias, No Joint Swelling Skin : No Skin Lesions, No rash Neuro : No Weakness, No Numbness, No Paresthesias, No Loss of Consciousness, No Dizziness, No Headache Psych : Complaining of anxiety, depression, suicidal thoughts, new onset visual and auditory hallucinations Heme/Lymph: No Bruising, No Bleeding,No Lymphadenopathy Endocrine : No Polyuria, No Polydipsia, No Temperature Intolerance PMFSH Past Medical History Medical History TBI (traumatic brain injury) HTN (hypertension) HLD (hyperlipidemia) Cocaine abuse PTSD (post-traumatic stress disorder) Depression Family History Family History Father Colon cancer, Onset Age: 60 Paternal Grandfather Colon cancer Social History Social History Household Members: Spouse Housing: House Do you presently have visiting nurse or other home services: No Alcohol intake: current Alcohol intake frequency: holidays/special occasions only Patient Tobacco Use Status: Current everyday Tobacco user Tobacco use type: Cigarette Cigarette Packs Per Day: 0.5 Cigarettes Per Day: 10 e-Cigarette/Vaping Use: Never Used Second Hand Smoke Exposure: Yes Substance Use Type: Crack/Cocaine Advance Directives: No Advance Directives Information Provided: Yes service: No Sexual orientation: Straight/Heterosexual Physical Exam 2 Vital Signs: Vital Signs: Last Vital Signs Temp 98.1 F 08/20/24 22:59 Pulse 123 H 08/20/24 22:59 Resp 20 08/20/24 22:59 BP 133/73 08/20/24 22:59 Pulse Ox 96 08/20/24 22:59 O2 Del Method Room Air 08/20/24 22:59 BMI result Body Mass Index 34.0 Const: Other: Appearance: Alert. Oriented X3. No acute distress. Eyes: Pupils equal, round and reactive to light. ENT: Pharynx normal. Neck: Normal inspection. Neck supple. No lymph nodes noted. No crepitus CVS: Normal heart rate and rhythm. Pulses normal. Normal S1 and S2 Respiratory: No respiratory distress. Breath sounds normal. No Wheezing. No rales Abdomen: Soft and nontender. No rigidity. No distention. Skin: Skin warm and dry. Normal skin color. Normal skin turgor. Extremities: No lower extremity edema. No Lacerations. No Rash Neuro: Oriented X 3. No motor deficit. No sensory deficit. Moving all extremities. No slurred speech. CN 2 through 12 grossly intact Psych: calm, cooperative, anxious Medical Decision Making Medical Decision Making [facility] Narrative: my interpretation of labs: No significant abnormality in patient's hematology or chemistry, ETOH negative urinalysis pending patient is on a Section 12 care team consult pending physician observation started at 01:40 Differential Diagnosis Differential Diagnoses: The differential diagnosis associated with the presentation includes ( polysubstance abuse, schizophrenia, bipolar disorder, delusional) Admission/Observation Consideration of admission/observation: Escalation of care including admission/observation considered ( patient has been off meds, has new onset hallucinations, patient will likely need inpatient level of care.) Lab Data [facility] Lab Attestation statement: I reviewed the patient's lab results. 08/21/24 01:25 08/21/24 01:25 Labs: Lab Results 08/21/24 Range/Units 01:25 WBC 8.9 (4.8-10.8) X10*3/uL RBC 4.55 L (4.60-5.80) X10*6/uL Hgb 13.0 L (14.0-18.0) g/dl Hct 36.7 L (42.0-52.0) % MCV 80.7 (80.0-98.0) fL MCH 28.6 (27.0-33.0) pg MCHC 35.4 (31.0-36.0) g/dl RDW 14.3 (11.0-16.0) % Plt Count 297 (160-400) X10*3/uL MPV 11.1 (9.4-12.4) fL Immature Gran % (Auto) 0.3 (0.0-0.4) % Neut % (Auto) 54.5 (45-73) % Lymph % (Auto) 35.0 (20-40) % [place] % (Auto) 6.9 (2-11) % Eos % (Auto) 2.7 (0-4) % Baso % (Auto) 0.6 (0-2) % Lymph # (Auto) 3.1 (1.2-4.9) X10*3/uL [place] # (Auto) 0.6 (0.1-1.2) X10*3/uL Eos # (Auto) 0.2 (0.0-0.4) X10*3/uL Baso # (Auto) 0.1 (0.0-0.2) X10*3/uL Abs Immat Gran (auto) 0.03 (0.00-0.03) X10*3/uL Absolute Neuts (auto) 4.8 (2.0-8.3) x10*3/uL Absolute Nucleated RBC 0.000 (0.0-0.012) X10*3/uL Nucleated RBC % (auto) 0.0 (0.0-0.2) /100WBC Critical Care Time Critical Care Time Critical Care Time: Yes Total Critical Care Time: 35 Attestation: I have personally provided critical care time. Time includes review of lab data, radiology results, discussion with consultants, and monitoring for potential decompensation. Intervention performed as documented. Discharge Plan Discharge Clinical Impression: Polysubstance abuse, Hallucination, visual Patient Disposition: Still a Patient Prescriptions: No Action clonidine HCl 0.1 mg Tablet 0.1 mg PO BEDTIME 30 Days Qty: 30 0RF Protocol: Hold for SBP< HOLD for SBP < : 90 buprenorphine-naloxone [Suboxone] 4-1 mg Film 1 film sublingual DAILY 5 Days Qty: 5 0RF trazodone 100 mg tablet See Rx Instructions .ROUTE .COMPLEX PRN (Reason: insomnia) 30 Days Qty: 30 0RF Rx Instructions: take 1/2 to 1 tab at bedtime as needed for insomnia docusate sodium 100 mg Capsule 100 mg PO BEDTIME PRN (Reason: constipation) 30 Days Qty: 30 0RF quetiapine 25 mg Tablet 25 mg PO Q6H PRN (Reason: anxiety/agitation/sleep) 30 Days Qty: 90 0RF atorvastatin 20 mg Tablet 20 mg PO BEDTIME 30 Days Qty: 30 0RF lisinopril 10 mg tablet 10 mg PO DAILY 30 Days Qty: 30 0RF nicotine 21 mg/24 hr Patch 24 Hour 21 mg transdermal DAILY PRN (Reason: nicotine craving) 30 Days Qty: 30 0RF gabapentin 300 mg Capsule 300 mg PO TID 30 Days Qty: 90 0RF omeprazole 20 mg capsule,delayed release(DR/EC) 20 mg PO DAILY@0630 30 Days Qty: 30 0RF fluoxetine 20 mg capsule 20 mg PO DAILY 30 Days Qty: 30 0RF Print Language: South African
[2024-08-21 01:54] LABS: Alanine Aminotransferase 30 U/L (0-40); Albumin Level 4.2 g/dL (3.5-5.0); Anion Gap 12 (12-20); Aspartate Amino Transferase 82 U/L (5-37); Bilirubin Total 0.6 mg/dL (0.0-1.0); Blood Urea Nitrogen 20 mg/dL (9-16); Calcium 8.9 mg/dL (8.4-10.2); Carbon Dioxide 22 mmol/L (22-29); Chloride 108 mmol/L (96-108); Creatinine Clr Calc Pharmacy 104.9; Estimated Glomerular Filt Rate > 60; Ethanol < 10 mg/dL; Glucose Random 107 mg/dL (60-115); Lipase 18 U/L (8-78); Potassium 3.6 mmol/L (3.3-5.1); Sodium 138 mmol/L (135-145); Total Protein 7.7 g/dL (6.5-8.0)
[2024-08-21 01:56] LABS: Alkaline Phosphatase 82 U/L (39-117)
--- NOTE | 2024-08-21 05:19 | PC.NURSE ---
pt resting comfortably on stretcher in 8H, changed over into hospital attire, reporting he is hearing voices and seeing things that are not there, stopped taking prescribed medications and has been on a cocaine flannery instead. care team pending. pt provided with sunny and stormy jim. 1:[address]
[2024-08-21 08:03] VITALS: BP 105/61; PULSE 84; RESP 16; TEMP 36.7; O2SAT 97
--- NOTE | 2024-08-21 09:15 | MHC.CARE ---
Pt meets the criteria for IPLOC. Section 12a in chart. Provider in agreement.
--- NOTE | 2024-08-21 09:44 | ECG_ITS ---
Test Reason : MED CLEARANCE Blood Pressure : */* mmHG Vent. Rate : 84 BPM Atrial Rate : 84 BPM P-R Int : 192 ms QRS Dur : 100 ms QT Int : 386 ms P-R-T Axes : 65 34 49 degrees QTcB Int : 456 ms Normal sinus rhythm Cannot rule out Anterior infarct , age undetermined Abnormal ECG When compared with ECG of 19-May-2024 08:46, No significant change was found Referred By: Ana Sky Electronically Signed By: JENNIFER BARROS MD
[2024-08-21 11:46] VITALS: BP 128/79; PULSE 80; RESP 18; TEMP 36.9; O2SAT 97
[2024-08-21 12:50] LABS: Appearance Urine Clear; Color Urine Yellow; Glucose Urine UA Negative (Negative); Leukocyte Esterase Urine Negative (Negative); Nitrite Urine Negative (Negative); Specific Gravity - Urine >= 1.030 (1.005-1.025); UMIC TRIGGER UACC YES; Urine Blood Negative (Negative); Urine Ketones Negative (Negative); Urine Protein 30 (1+) mg/dL (Neg-Trace)
[2024-08-21 12:54] LABS: Bacteria Urine None Seen (None Seen); RBC Urine 0-2 /HPF (0-2); Squamous Epithelial Cell Urine 0-2 /HPF (0-2); WBC Urine 0-5 /HPF (0-5)
[2024-08-21 12:59] LABS: Amphetamine Screen Urine Not Detected (Not Detect); Barbiturates, Urine Not Detected (Not Detect); Benzodiazepines Screen Urine Not Detected (Not Detect); Buprenorphine Scr Positive (Not Detect); Cannabinoid Screen Urine Not Detected (Not Detect); Cocaine Screen Urine POSITIVE (Not Detect); Fentanyl, urine Not Detected (Not Detect); Methadone Screen, Urine Not Detected (Not Detect); Opiate Screen Urine Not Detected (Not Detect); Oxycodone Screen Urine Not Detected (Not Detect); Phencyclidine Screen Urine Not Detected (Not Detect)
[2024-08-21 16:21] VITALS: BP 136/77; PULSE 89; RESP 20; TEMP 36.4; O2SAT 97
[2024-08-21] MEDS: LORazepam 1 MG TABLET 2 MG PO ×2 (16:28→21:51)
[2024-08-21] MEDS: OLANZapine 10 MG TABLET PO (16:28)
--- NOTE | 2024-08-21 16:34 | PHA.MEDREC ---
Addendum entered by Beata Brunson RPh 08/21/24 17:35: [facility] reviewed Original Note: Pharmacy Consult ? Medication Reconciliation Pharmacy has completed the medication reconciliation. Went to speak with patient and patient became very agitated in ED, patient then got out of bed and proceeded to walk around yelling and uncooperative. I called patients pharmacy [facility] and they gave me a run down of medications that have been filled in the last 3 months. They confirmed the patient just picked up Buprenorphine-Naloxone 12-3mg films on 08/19 for a qty of 8 films taken once daily, Bupropion 300mg ER tabs once daily on 08/14 for 30 days, Lisinopril 10mg tabs once daily on 08/14 for 30 days, Mirtazipine 30mg tabs once at bedtime on 08/14 for 30 days, Simvastatin 20mg tabs once at bedtime on 08/14 for 30 days, an Albuterol/Ventolin inhaler 2 puffs Q4-6H PRN SOB/Wheezing on 08/14 for 30 days and Quetiapine 25mg tabs 1 tab BID prn agitation/anxiety picked up on 06/03 for 30 days. They confirmed the patient has an existing prior authorization out for Omeprazole 20mg tabs once daily but states the patient has never picked that up with them before.
--- NOTE | 2024-08-21 16:48 | PC.NURSE ---
patient became upset and agitated over home medications, ED provider ordered medications. patient medicated per Aug. patient now asleep, resp even and unlabored. sitter 1:1
[2024-08-21 19:16] VITALS: BMI 33.0
[2024-08-21 19:18] VITALS: BP 139/79; PULSE 83; RESP 20; TEMP 36.5; O2SAT 96
[2024-08-21 19:46] LABS: Anion Gap 10 (12-20)
[2024-08-21 20:54] LABS: Albumin Level 4.2 g/dL (3.5-5.0); Chloride 109 mmol/L (96-108); Sodium 140 mmol/L (135-145)
[2024-08-21 20:57] LABS: Alkaline Phosphatase 82 U/L (39-117); Aspartate Amino Transferase 68 U/L (5-37); Bilirubin Total 0.5 mg/dL (0.0-1.0); Blood Urea Nitrogen 18 mg/dL (9-16); Calcium 9.2 mg/dL (8.4-10.2); Carbon Dioxide 25 mmol/L (22-29); Creatinine Clr Calc Pharmacy 116.5; Estimated Glomerular Filt Rate > 60; Glucose Random 109 mg/dL (60-115); Potassium 4.4 mmol/L (3.3-5.1)
[2024-08-21 21:00] VITALS: BP 137/81; PULSE 89; RESP 18; TEMP 36.5; O2SAT 98
[2024-08-21 21:09] LABS: Alanine Aminotransferase 32 U/L (0-40)
[2024-08-21] MEDS: Mirtazapine 30 MG TABLET PO (21:28)
[2024-08-21] MEDS: Atorvastatin Calcium 10 MG TABLET PO (21:28)
--- NOTE | 2024-08-22 04:59 | PC.ADMIT ---
Robin Monte is a 54year old male, who self presented to [facility] ED reporting ongoing substance use, SI, AVH and not being medication complaint for a week. pt was medically cleared and referred to the care team for appropriate treatment recommendations. pt originally was admitted to by day RN. This nurse took over care at 1930, pt was already settled in bed. pt signed a CV. When this expert medical writer approached pt in his room, he appeared fatigued, drowsy, couldn't keep his eyes opened for log conversations, kept dozing off during conversations. when pt confronted of his drowsiness, pt responded I have a lot going on right now . pt endorses anxiety + depression. pt on CIWA protocol and scored 13. pt was given Ativan 2mg per protocol. pt denied SI/HI/AVH upon assessment. Pt declined to participate in completion of admission process.pt denied pain. pt contracted to safety on the unit.
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
[2024-08-22 11:32] VITALS: BP 138/87
[2024-08-22] MEDS: Folic Acid 1 MG TABLET PO (11:32)
[2024-08-22] MEDS: lisinopriL 10 MG TABLET PO (11:32)
[2024-08-22] MEDS: QUEtiapine Fumarate 25 MG TABLET PO ×2 (11:32→21:41)
[2024-08-22] MEDS: buPROPion HCl XL 300 MG TAB.ER.24H PO (11:33)
[2024-08-22] MEDS: Thiamine HCL 100 MG TABLET PO (11:33)
[2024-08-22] MEDS: LORazepam 1 MG TABLET PO (11:36)
[2024-08-22] MEDS: Buprenorphine/Naloxone 4/1 mg FILM 1 FILM SUBLINGUAL (15:58)
[2024-08-22 20:00] VITALS: BP 141/88; PULSE 73; RESP 16; TEMP 37; O2SAT 96
[2024-08-22] MEDS: Atorvastatin Calcium 10 MG TABLET PO (21:40)
[2024-08-22] MEDS: Mirtazapine 30 MG TABLET PO (21:41)
[2024-08-23 08:36] VITALS: BP 121/68; PULSE 85; RESP 18; TEMP 36.5; O2SAT 95
[2024-08-23] MEDS: Thiamine HCL 100 MG TABLET PO (09:22)
[2024-08-23] MEDS: Folic Acid 1 MG TABLET PO (09:22)
[2024-08-23] MEDS: lisinopriL 10 MG TABLET PO (09:22)
[2024-08-23] MEDS: Buprenorphine/Naloxone 8/2 mg TAB.SUBL 1 TAB SUBLINGUAL (09:22)
[2024-08-23] MEDS: buPROPion HCl XL 300 MG TAB.ER.24H PO (09:22)
[2024-08-23 10:19] LABS: Estimated Average Glucose 120 mg/dL; Hemoglobin A1C 146.2709 umol/L; Hemoglobin A1c % 5.8 % (<6.0); Total Hemoglobin (HGBA1C) 3662.7167 umol/L
--- NOTE | 2024-08-23 10:37 | P.PNPSI_ITS ---
Subjective Subjective Date of Service: 08/23/24 Reason For Visit: depression Subjective Notes: Conditional Voluntary and Section 12B Interim History: patient was seen and discussed in rounds today. Records and plans were reviewed. Has been stable. CIWA was discontinued. Eating and sleeping adequately. He has been put on Suboxone. No complaints. No changes were made today. No SI. his 12 be expires on 08/25 Review of Systems Review of Systems Yes all other systems are reviewed and are negative Mental Status Exam Mental Status Exam Narrative: In today's visit he is alert, oriented and pleasant. Normal speech. Good eye contact. Affect is constricted. No acute signs of psychosis. No SI/HI. Cognitively is grossly intact. Moves all limbs. No gait abnormalities Diagnostics Vital Signs (24Hr): Vital Signs - 24 hr 08/22/24 11:32 08/22/24 20:00 08/23/24 08:36 Temperature 98.6 F 97.7 F Pulse Rate 73 85 Respiratory Rate 16 18 Blood Pressure 138/87 141/88 H 121/68 Pulse Oximetry 96 95 Oxygen Delivery Method Room Air Room Air BMI result Body Mass Index 33.0 Labs 08/21/24 01:25 08/21/24 19:14 Labs: Laboratory Results - last 48 hr 08/21/24 08/21/24 08/23/24 12:39 19:14 09:36 Sodium 140 Potassium 4.4 D Chloride 109 H Carbon Dioxide 25 Anion Gap 10 L BUN 18 H Creatinine 0.87 Estim Creat Clear Calc 116.5 Estimated GFR > 60 Random Glucose 109 Estimat Average Glucose 120 Hemoglobin A1c % 5.8 Calcium 9.2 Total Bilirubin 0.5 AST 68 H ALT 32 Alkaline Phosphatase 82 Total Protein 8.0 Albumin 4.2 Urine Color Yellow Urine Appearance Clear Urine pH 6.0 Ur Specific [place] >= 1.030 H Urine Protein 30 (1+) H Urine Glucose (UA) Negative Urine Ketones Negative Urine Blood Negative Urine Nitrite Negative Ur Leukocyte Esterase Negative Urine RBC 0-2 Urine WBC 0-5 Ur Squamous Epith Cells 0-2 Urine Bacteria None Seen Hyaline Casts 3-5 Urine Opiates Screen Not Detected Ur Buprenorphine Scrn Positive H Ur Oxycodone Screen Not Detected Urine Methadone Screen Not Detected Urine Fentanyl Screen Not Detected Ur Barbiturates Screen Not Detected Ur Phencyclidine Scrn Not Detected Ur Amphetamines Screen Not Detected U Benzodiazepines Scrn Not Detected Urine Cocaine Screen POSITIVE H U Marijuana (THC) Screen Not Detected Medications Medications Current Medications Acetaminophen (Acetaminophen 325 Mg Tablet) 650 mg PO Q6H PRN PRN Reason: Headache/Pain, Scale 1-10 Al Hydroxide/Mg Hydroxide (Magnesium Hydrox/Alum Hydrox 30 Ml Oral.Susp) 30 ml PO Q6H PRN PRN Reason: Heartburn/Nausea Albuterol Sulfate (Albuterol Sulfate 90 Mcg 8 Gm Inhaler) 2 puff INHALE RQ4H PRN PRN Reason: Shortness Of Breath Or Wheezing Atorvastatin Calcium (Atorvastatin Calcium 10 Mg Tablet) 10 mg PO BEDTIME [facility] [place] Last Admin: 08/22/24 21:40 Dose: 10 mg Buprenorphine/Naloxone (Buprenorphine/Naloxone 8/2 Mg Tab.Subl) 1 tab SUBLINGUAL DAILY [facility] [place] Last Admin: 08/23/24 09:22 Dose: 1 tab Bupropion HCl (Bupropion Hcl Xl 300 Mg Tab.Er.24h) 300 mg PO DAILY [facility] [place] Last Admin: 08/23/24 09:22 Dose: 300 mg Clonidine HCl (Clonidine Hcl 0.1 Mg Tablet) 0.1 mg PO Q4H PRN; Protocol PRN Reason: moderate anxiety Folic Acid (Folic Acid 1 Mg Tablet) 1 mg PO DAILY [facility] [place] Last Admin: 08/23/24 09:22 Dose: 1 mg Hydroxyzine HCl (Hydroxyzine Hcl 25 Mg Tablet) 25 mg PO Q6H PRN PRN Reason: mild anxiety Lisinopril (Lisinopril 10 Mg Tablet) 10 mg PO DAILY [facility] [place]; Protocol Last Admin: 08/23/24 09:22 Dose: 10 mg Magnesium Hydroxide (Milk Of Magnesia 30 Ml Oral.Susp) 30 ml PO DAILY PRN PRN Reason: Constipation Mirtazapine (Mirtazapine 30 Mg Tablet) 30 mg PO BEDTIME [facility] [place] Last Admin: 08/22/24 21:41 Dose: 30 mg Nicotine (Nicotine 21 Mg Patch.Td24) 21 mg TRANSDERMA DAILY PRN PRN Reason: smoking cessation Nicotine Polacrilex (Nicotine Polacrilex 2 Mg Gum) 4 mg BUCCAL Q2H PRN PRN Reason: Nicotine Cravings Olanzapine (Olanzapine 5 Mg Tablet) 5 mg PO TID PRN PRN Reason: agitation Quetiapine Fumarate (Quetiapine Fumarate 25 Mg Tablet) 25 mg PO BID PRN PRN Reason: anxiety/agitation/sleep Last Admin: 08/22/24 21:41 Dose: 25 mg Thiamine HCl (Thiamine Hcl 100 Mg Tablet) 100 mg PO DAILY [facility] Last Admin: 08/23/24 09:22 Dose: 100 mg Trazodone HCl (Trazodone Hcl 50 Mg Tablet) 50 mg PO BEDTIME MRX1 PRN PRN Reason: Insomnia Allergies Allergies Allergy/AdvReac Type Severity Reaction Status Date / Time No Known Allergies Allergy Verified 08/20/24 23:01 [No Known Allergies*] Assessment & Plan Assessment & Plan (1) MDD (major depressive disorder), recurrent episode, moderate: Status: Acute Code(s): F33.1 - Major depressive disorder, recurrent, moderate (2) Post traumatic stress disorder (PTSD): Status: Acute Code(s): F43.10 - Post-traumatic stress disorder, unspecified (3) Cocaine use disorder: Status: Acute Code(s): F14.10 - Cocaine abuse, uncomplicated Plan Patient is a 54-year-old male with history PTSD, ADHD, depression, crack cocaine use disorder, history of incarceration self presents for worsening depression in the face of relapse. Patient reports that he himself ask the court for section 35 and about a week ago completed 45 days there during which time he was started on Wellbutrin and Remeron and felt he was doing well. On discharge however patient ended up returning to the same set of circumstances, homeless, around the same individuals and immediately relapsed and has been using crack cocaine for the past 5 days. Patient reports that while abusing substances, he started seeing things and hearing things that were not there which scared him. Pt became overwhelmed with shame for relapsing, missing his kids and his ; his depression worsened and started wishing he were so self presented. Patient very much wants to get back on Wellbutrin and Remeron; although he does not abuse opiates, patient also found Suboxone helpful for cocaine cravings. Patient denies alcohol use; endorses long history of trauma, from [facility] in [facility]. Unable to discern history of manic episodes given long history of cocaine abuse. Formulation/clinical reasoning: Patient reports depression was well treated when on Wellbutrin and Remeron and wants to get back on it; also found Suboxone hopeful for cocaine cravings. Patient is very adamant about getting help to get into a substance abuse program and has already reached out on his own to programs. Plan: CV Q 15 minute checks Restart Wellbutrin XL 300 mg Restart Remeron 30 mg Clonidine as a p.r.n. Will discontinue CIWA; patient says he seldom drinks Restart Suboxone; will titrate to 12/3 mg daily 08/23/24: Continue current plans and regimen Reason for continued inpatient stay Substantial Risk for: med/psych decompensation Time Spent With Patient Time: Total time managing care of this patient today ____ minutes.
[2024-08-23 13:34] LABS: Cholesterol 144 mg/dL (<200); HDL Cholesterol 31 mg/dL (>40); LDL Cholesterol Calculated 88 mg/dL (<100); Triglycerides 125 mg/dL (<150)
[2024-08-23] MEDS: Mirtazapine 30 MG TABLET PO (21:32)
[2024-08-23] MEDS: Atorvastatin Calcium 10 MG TABLET PO (21:32)
[2024-08-24] MEDS: Thiamine HCL 100 MG TABLET PO (09:19)
[2024-08-24] MEDS: buPROPion HCl XL 300 MG TAB.ER.24H PO (09:20)
[2024-08-24] MEDS: Buprenorphine/Naloxone 8/2 mg TAB.SUBL 1 TAB SUBLINGUAL (09:20)
[2024-08-24] MEDS: Folic Acid 1 MG TABLET PO (09:20)
--- NOTE | 2024-08-24 09:32 | HO.PSYCHPN ---
Subjective Subjective Date of Service: 08/24/24 Reason For Visit: depression Subjective Notes: Conditional Voluntary and Section 12B Interim History: patient was seen and discussed in rounds today. Records and plans were reviewed. Has is doing better and has been stable. He is visible but guarded and withdrawn. Eating and sleeping adequately. No SI. No AVH. No changes were made today Review of Systems Review of Systems Yes all other systems are reviewed and are negative Mental Status Exam Mental Status Exam Narrative: In today's visit he is alert, oriented and pleasant. Normal speech. Good eye contact. Affect is constricted. No acute signs of psychosis. No SI/HI. Cognitively is grossly intact. Moves all limbs. No gait abnormalities Diagnostics Vital Signs (24Hr): Vital Signs - 24 hr 08/23/24 08:36 Temperature 97.7 F Pulse Rate 85 Respiratory Rate 18 Blood Pressure 121/68 Pulse Oximetry 95 Oxygen Delivery Method Room Air BMI result Body Mass Index 33.0 Labs 08/21/24 01:25 08/21/24 19:14 Labs: Laboratory Results - last 48 hr 08/23/24 09:36 Estimat Average Glucose 120 Hemoglobin A1c % 5.8 Triglycerides 125 Cholesterol 144 LDL Cholesterol, Calc 88 HDL Cholesterol 31 L Medications Medications Current Medications Acetaminophen (Acetaminophen 325 Mg Tablet) 650 mg PO Q6H PRN PRN Reason: Headache/Pain, Scale 1-10 Al Hydroxide/Mg Hydroxide (Magnesium Hydrox/Alum Hydrox 30 Ml Oral.Susp) 30 ml PO Q6H PRN PRN Reason: Heartburn/Nausea Albuterol Sulfate (Albuterol Sulfate 90 Mcg 8 Gm Inhaler) 2 puff INHALE RQ4H PRN PRN Reason: Shortness Of Breath Or Wheezing Atorvastatin Calcium (Atorvastatin Calcium 10 Mg Tablet) 10 mg PO BEDTIME [facility] Last Admin: 08/23/24 21:32 Dose: 10 mg Buprenorphine/Naloxone (Buprenorphine/Naloxone 8/2 Mg Tab.Subl) 1 tab SUBLINGUAL DAILY [facility] Last Admin: 08/24/24 09:20 Dose: 1 tab Bupropion HCl (Bupropion Hcl Xl 300 Mg Tab.Er.24h) 300 mg PO DAILY [facility] Last Admin: 08/24/24 09:20 Dose: 300 mg Clonidine HCl (Clonidine Hcl 0.1 Mg Tablet) 0.1 mg PO Q4H PRN; Protocol PRN Reason: moderate anxiety Folic Acid (Folic Acid 1 Mg Tablet) 1 mg PO DAILY [facility] Last Admin: 08/24/24 09:20 Dose: 1 mg Hydroxyzine HCl (Hydroxyzine Hcl 25 Mg Tablet) 25 mg PO Q6H PRN PRN Reason: mild anxiety Lisinopril (Lisinopril 10 Mg Tablet) 10 mg PO DAILY [facility]; Protocol Last Admin: 08/24/24 09:21 Dose: Not Given Magnesium Hydroxide (Milk Of Magnesia 30 Ml Oral.Susp) 30 ml PO DAILY PRN PRN Reason: Constipation Mirtazapine (Mirtazapine 30 Mg Tablet) 30 mg PO BEDTIME [facility] Last Admin: 08/23/24 21:32 Dose: 30 mg Nicotine (Nicotine 21 Mg Patch.Td24) 21 mg TRANSDERMA DAILY PRN PRN Reason: smoking cessation Nicotine Polacrilex (Nicotine Polacrilex 2 Mg Gum) 4 mg BUCCAL Q2H PRN PRN Reason: Nicotine Cravings Olanzapine (Olanzapine 5 Mg Tablet) 5 mg PO TID PRN PRN Reason: agitation Quetiapine Fumarate (Quetiapine Fumarate 25 Mg Tablet) 25 mg PO BID PRN PRN Reason: anxiety/agitation/sleep Last Admin: 08/22/24 21:41 Dose: 25 mg Thiamine HCl (Thiamine Hcl 100 Mg Tablet) 100 mg PO DAILY [facility] Last Admin: 08/24/24 09:19 Dose: 100 mg Trazodone HCl (Trazodone Hcl 50 Mg Tablet) 50 mg PO BEDTIME MRX1 PRN PRN Reason: Insomnia Allergies Allergies Allergy/AdvReac Type Severity Reaction Status Date / Time No Known Allergies Allergy Verified 08/20/24 23:01 [No Known Allergies*] Assessment & Plan Assessment & Plan (1) MDD (major depressive disorder), recurrent episode, moderate: Status: Acute Code(s): F33.1 - Major depressive disorder, recurrent, moderate (2) Post traumatic stress disorder (PTSD): Status: Acute Code(s): F43.10 - Post-traumatic stress disorder, unspecified (3) Cocaine use disorder: Status: Acute Code(s): F14.10 - Cocaine abuse, uncomplicated Plan Patient is a 54-year-old male with history PTSD, ADHD, depression, crack cocaine use disorder, history of incarceration self presents for worsening depression in the face of relapse. Patient reports that he himself ask the court for section 35 and about a week ago completed 45 days there during which time he was started on Wellbutrin and Remeron and felt he was doing well. On discharge however patient ended up returning to the same set of circumstances, homeless, around the same individuals and immediately relapsed and has been using crack cocaine for the past 5 days. Patient reports that while abusing substances, he started seeing things and hearing things that were not there which scared him. Pt became overwhelmed with shame for relapsing, missing his kids and his ; his depression worsened and started wishing he were so self presented. Patient very much wants to get back on Wellbutrin and Remeron; although he does not abuse opiates, patient also found Suboxone helpful for cocaine cravings. Patient denies alcohol use; endorses long history of trauma, from [facility] in group home. Unable to discern history of manic episodes given long history of cocaine abuse. Formulation/clinical reasoning: Patient reports depression was well treated when on Wellbutrin and Remeron and wants to get back on it; also found Suboxone hopeful for cocaine cravings. Patient is very adamant about getting help to get into a substance abuse program and has already reached out on his own to programs. Plan: CV Q 15 minute checks Restart Wellbutrin XL 300 mg Restart Remeron 30 mg Clonidine as a p.r.n. Will discontinue CIWA; patient says he seldom drinks Restart Suboxone; will titrate to 12/3 mg daily 08/23/24: Continue current plans and regimen 08/24: Continue current regimen and plans Reason for continued inpatient stay Substantial Risk for: med/psych decompensation Time Spent With Patient Time: Total time managing care of this patient today ____ minutes.
[2024-08-24 20:00] VITALS: BP 126/83; PULSE 100; RESP 15; TEMP 36.4; O2SAT 97
[2024-08-24] MEDS: Mirtazapine 30 MG TABLET PO (20:12)
[2024-08-24] MEDS: Atorvastatin Calcium 10 MG TABLET PO (20:12)
[2024-08-24] MEDS: Magnesium Hydrox/Alum Hydrox 30 ML ORAL.SUSP PO (20:14)
[2024-08-25] MEDS: Magnesium Hydrox/Alum Hydrox 30 ML ORAL.SUSP PO ×2 (03:04→15:43)
[2024-08-25 08:30] VITALS: BP 136/84; PULSE 87; TEMP 36.4; O2SAT 96
[2024-08-25] MEDS: Buprenorphine/Naloxone 8/2 mg TAB.SUBL 1 TAB SUBLINGUAL (08:32)
[2024-08-25] MEDS: Thiamine HCL 100 MG TABLET PO (08:32)
[2024-08-25] MEDS: lisinopriL 10 MG TABLET PO (08:32)
[2024-08-25] MEDS: buPROPion HCl XL 300 MG TAB.ER.24H PO (08:32)
[2024-08-25] MEDS: Folic Acid 1 MG TABLET PO (08:32)
[2024-08-25] MEDS: Omeprazole 20 MG CAPSULE.DR PO (09:44)
[2024-08-25] MEDS: Calcium Carbonate 750 MG TAB.CHEW PO (09:44)
--- NOTE | 2024-08-25 10:02 | HO.PSYCHPN ---
Subjective Subjective Date of Service: 08/25/24 Reason For Visit: depression Interim History: Met with patient; discussed with team; reviewed chart feeling much better; mood better and anxiety down; very much wants help getting into a substance abuse program Mental Status Exam Mental Status Exam Narrative: Pt is alert and oriented; behavior is cooperative, friendly and calm; patient is not in distress; dressed in casual attire, scruffy, unkempt; mood is described as better and affect congruent; eye contact appropriate; Speech is normal rate, volume and prosody and not pressured; no psychomotor agitation/retardation present; thought process is organized and goal directed; Thought content is on tx; otherwise pertinent to relevant topics and without any delusional content, paranoid ideations or grandiosity; denies any SI/HI. There is no evidence of perceptual disturbance. Patients insight and judgment appear intact. Diagnostics Vital Signs (24Hr): Vital Signs - 24 hr 08/24/24 20:00 08/25/24 08:30 Temperature 97.5 F 97.6 F Pulse Rate 100 87 Respiratory Rate 15 Blood Pressure 126/83 136/84 Pulse Oximetry 97 96 Oxygen Delivery Method Room Air BMI result Body Mass Index 33.0 Labs 08/21/24 01:25 08/21/24 19:14 Labs: Laboratory Results - last 48 hr 08/23/24 09:36 Estimat Average Glucose 120 Hemoglobin A1c % 5.8 Triglycerides 125 Cholesterol 144 LDL Cholesterol, Calc 88 HDL Cholesterol 31 L Medications Medications Current Medications Acetaminophen (Acetaminophen 325 Mg Tablet) 650 mg PO Q6H PRN PRN Reason: Headache/Pain, Scale 1-10 Al Hydroxide/Mg Hydroxide (Magnesium Hydrox/Alum Hydrox 30 Ml Oral.Susp) 30 ml PO Q6H PRN PRN Reason: Heartburn/Nausea Last Admin: 08/25/24 03:04 Dose: 30 ml Albuterol Sulfate (Albuterol Sulfate 90 Mcg 8 Gm Inhaler) 2 puff INHALE RQ4H PRN PRN Reason: Shortness Of Breath Or Wheezing Atorvastatin Calcium (Atorvastatin Calcium 10 Mg Tablet) 10 mg PO BEDTIME [facility] Last Admin: 08/24/24 20:12 Dose: 10 mg Buprenorphine/Naloxone (Buprenorphine/Naloxone 8/2 Mg Tab.Subl) 1 tab SUBLINGUAL DAILY [facility] Last Admin: 08/25/24 08:32 Dose: 1 tab Bupropion HCl (Bupropion Hcl Xl 300 Mg Tab.Er.24h) 300 mg PO DAILY [facility] Last Admin: 08/25/24 08:32 Dose: 300 mg Clonidine HCl (Clonidine Hcl 0.1 Mg Tablet) 0.1 mg PO Q4H PRN; Protocol PRN Reason: moderate anxiety Folic Acid (Folic Acid 1 Mg Tablet) 1 mg PO DAILY [facility] Last Admin: 08/25/24 08:32 Dose: 1 mg Hydroxyzine HCl (Hydroxyzine Hcl 25 Mg Tablet) 25 mg PO Q6H PRN PRN Reason: mild anxiety Lisinopril (Lisinopril 10 Mg Tablet) 10 mg PO DAILY [facility]; Protocol Last Admin: 08/25/24 08:32 Dose: 10 mg Magnesium Hydroxide (Milk Of Magnesia 30 Ml Oral.Susp) 30 ml PO DAILY PRN PRN Reason: Constipation Mirtazapine (Mirtazapine 30 Mg Tablet) 30 mg PO BEDTIME [facility] Last Admin: 08/24/24 20:12 Dose: 30 mg Nicotine (Nicotine 21 Mg Patch.Td24) 21 mg TRANSDERMA DAILY PRN PRN Reason: smoking cessation Nicotine Polacrilex (Nicotine Polacrilex 2 Mg Gum) 4 mg BUCCAL Q2H PRN PRN Reason: Nicotine Cravings Olanzapine (Olanzapine 5 Mg Tablet) 5 mg PO TID PRN PRN Reason: agitation Omeprazole (Omeprazole 20 Mg Capsule.Dr) 20 mg PO DAILY@0630 [facility] Quetiapine Fumarate (Quetiapine Fumarate 25 Mg Tablet) 25 mg PO BID PRN PRN Reason: anxiety/agitation/sleep Last Admin: 08/22/24 21:41 Dose: 25 mg Thiamine HCl (Thiamine Hcl 100 Mg Tablet) 100 mg PO DAILY [facility] Last Admin: 08/25/24 08:32 Dose: 100 mg Trazodone HCl (Trazodone Hcl 50 Mg Tablet) 50 mg PO BEDTIME MRX1 PRN PRN Reason: Insomnia Allergies Allergies Allergy/AdvReac Type Severity Reaction Status Date / Time No Known Allergies Allergy Verified 08/20/24 23:01 [No Known Allergies*] Assessment & Plan Assessment & Plan (1) MDD (major depressive disorder), recurrent episode, moderate: Status: Acute Code(s): F33.1 - Major depressive disorder, recurrent, moderate (2) Post traumatic stress disorder (PTSD): Status: Acute Code(s): F43.10 - Post-traumatic stress disorder, unspecified (3) Cocaine use disorder: Status: Acute Code(s): F14.10 - Cocaine abuse, uncomplicated Plan Patient is a 54-year-old male with history PTSD, ADHD, depression, crack cocaine use disorder, history of incarceration self presents for worsening depression in the face of relapse. Patient reports that he himself ask the court for section 35 and about a week ago completed 45 days there during which time he was started on Wellbutrin and Remeron and felt he was doing well. On discharge however patient ended up returning to the same set of circumstances, homeless, around the same individuals and immediately relapsed and has been using crack cocaine for the past 5 days. Patient reports that while abusing substances, he started seeing things and hearing things that were not there which scared him. Pt became overwhelmed with shame for relapsing, missing his kids and his ; his depression worsened and started wishing he were so self presented. Patient very much wants to get back on Wellbutrin and Remeron; although he does not abuse opiates, patient also found Suboxone helpful for cocaine cravings. Patient denies alcohol use; endorses long history of trauma, from [facility]. Unable to discern history of manic episodes given long history of cocaine abuse. Formulation/clinical reasoning: Patient reports depression was well treated when on Wellbutrin and Remeron and wants to get back on it; also found Suboxone hopeful for cocaine cravings. Patient is very adamant about getting help to get into a substance abuse program and has already reached out on his own to programs. Hospital course: doing better back on meds; very much wants help w/ substance abuse program pt stable on current medication regimen Plan: CV Q 15 minute checks Wellbutrin XL 300 mg Remeron 30 mg Clonidine as a p.r.n. Suboxone 8/2 mg daily Patient educated on: diagnosis, medication risk/benefits, substance abuse and therapeutic strategies Informed Consent: understands Reason for continued inpatient stay Substantial Risk for: rapid decompensation Time Spent With Patient Time: Total time managing care of this patient today ____ minutes.
[2024-08-25 20:00] VITALS: BP 134/73; PULSE 75; TEMP 36.9; O2SAT 96
[2024-08-25] MEDS: Atorvastatin Calcium 10 MG TABLET PO (20:08)
[2024-08-25] MEDS: Mirtazapine 30 MG TABLET PO (20:08)
[2024-08-26 08:45] VITALS: BP 153/83; PULSE 92; TEMP 36.6; O2SAT 96
[2024-08-26] MEDS: Thiamine HCL 100 MG TABLET PO (08:52)
[2024-08-26] MEDS: buPROPion HCl XL 300 MG TAB.ER.24H PO (08:52)
[2024-08-26] MEDS: Omeprazole 20 MG CAPSULE.DR PO (08:52)
[2024-08-26] MEDS: lisinopriL 10 MG TABLET PO (08:52)
[2024-08-26] MEDS: Folic Acid 1 MG TABLET PO (08:52)
[2024-08-26] MEDS: Buprenorphine/Naloxone 8/2 mg TAB.SUBL 1 TAB SUBLINGUAL (08:58)
[2024-08-26] MEDS: Nicotine 21 MG PATCH.TD24 TRANSDERMA (09:26)
[2024-08-26] MEDS: Nicotine Polacrilex 2 MG GUM 4 MG BUCCAL (09:27)
--- NOTE | 2024-08-26 10:04 | P.PNPSI_ITS ---
Subjective Subjective Date of Service: 08/26/24 Reason For Visit: depression Interim History: Met with patient; discussed with team Patient remains doing well. Says good mood, anxiety under good control. Discussed plans and he very much wants to get into a substance abuse program. Patient remains in good behavioral and impulse control and appropriate with peers and staff. He is engaged in treatment, attending groups and open in discussions Mental Status Exam Mental Status Exam Narrative: Pt is alert and oriented; behavior is cooperative, friendly and calm; patient is not in distress; dressed in casual attire, scruffy, unkempt; mood is described as good and affect congruent; eye contact appropriate; Speech is normal rate, volume and prosody and not pressured; no psychomotor agitation/retardation present; thought process is organized and goal directed; Thought content is on tx; otherwise pertinent to relevant topics and without any delusional content, paranoid ideations or grandiosity; denies any SI/HI. There is no evidence of perceptual disturbance. Patients insight and judgment are intact. Diagnostics Vital Signs (24Hr): Vital Signs - 24 hr 08/25/24 20:00 08/26/24 08:45 Temperature 98.4 F 98 F Pulse Rate 75 92 Blood Pressure 134/73 153/83 H Pulse Oximetry 96 96 Oxygen Delivery Method Room Air Room Air BMI result Body Mass Index 33.0 Labs 08/21/24 01:25 08/21/24 19:14 Medications Medications Current Medications Acetaminophen (Acetaminophen 325 Mg Tablet) 650 mg PO Q6H PRN PRN Reason: Headache/Pain, Scale 1-10 Al Hydroxide/Mg Hydroxide (Magnesium Hydrox/Alum Hydrox 30 Ml Oral.Susp) 30 ml PO Q6H PRN PRN Reason: Heartburn/Nausea Last Admin: 08/25/24 15:43 Dose: 30 ml Albuterol Sulfate (Albuterol Sulfate 90 Mcg 8 Gm Inhaler) 2 puff INHALE RQ4H PRN PRN Reason: Shortness Of Breath Or Wheezing Atorvastatin Calcium (Atorvastatin Calcium 10 Mg Tablet) 10 mg PO BEDTIME [facility] Last Admin: 08/25/24 20:08 Dose: 10 mg Buprenorphine/Naloxone (Buprenorphine/Naloxone 8/2 Mg Tab.Subl) 1 tab SUBLINGUAL DAILY [facility] Last Admin: 08/26/24 08:58 Dose: 1 tab Bupropion HCl (Bupropion Hcl Xl 300 Mg Tab.Er.24h) 300 mg PO DAILY [facility] Last Admin: 08/26/24 08:52 Dose: 300 mg Clonidine HCl (Clonidine Hcl 0.1 Mg Tablet) 0.1 mg PO Q4H PRN; Protocol PRN Reason: moderate anxiety Folic Acid (Folic Acid 1 Mg Tablet) 1 mg PO DAILY [facility] Last Admin: 08/26/24 08:52 Dose: 1 mg Hydroxyzine HCl (Hydroxyzine Hcl 25 Mg Tablet) 25 mg PO Q6H PRN PRN Reason: mild anxiety Lisinopril (Lisinopril 10 Mg Tablet) 10 mg PO DAILY [facility]; Protocol Last Admin: 08/26/24 08:52 Dose: 10 mg Magnesium Hydroxide (Milk Of Magnesia 30 Ml Oral.Susp) 30 ml PO DAILY PRN PRN Reason: Constipation Mirtazapine (Mirtazapine 30 Mg Tablet) 30 mg PO BEDTIME [facility] Last Admin: 08/25/24 20:08 Dose: 30 mg Nicotine (Nicotine 21 Mg Patch.Td24) 21 mg TRANSDERMA DAILY PRN PRN Reason: smoking cessation Last Admin: 08/26/24 09:26 Dose: 21 mg Nicotine Polacrilex (Nicotine Polacrilex 2 Mg Gum) 4 mg BUCCAL Q2H PRN PRN Reason: Nicotine Cravings Last Admin: 08/26/24 09:27 Dose: 4 mg Olanzapine (Olanzapine 5 Mg Tablet) 5 mg PO TID PRN PRN Reason: agitation Omeprazole (Omeprazole 20 Mg Capsule.Dr) 20 mg PO DAILY@0630 [facility] Last Admin: 08/26/24 08:52 Dose: 20 mg Quetiapine Fumarate (Quetiapine Fumarate 25 Mg Tablet) 25 mg PO BID PRN PRN Reason: anxiety/agitation/sleep Last Admin: 08/22/24 21:41 Dose: 25 mg Thiamine HCl (Thiamine Hcl 100 Mg Tablet) 100 mg PO DAILY [facility] Last Admin: 08/26/24 08:52 Dose: 100 mg Trazodone HCl (Trazodone Hcl 50 Mg Tablet) 50 mg PO BEDTIME MRX1 PRN PRN Reason: Insomnia Allergies Allergies Allergy/AdvReac Type Severity Reaction Status Date / Time No Known Allergies Allergy Verified 08/20/24 23:01 [No Known Allergies*] Assessment & Plan Assessment & Plan (1) MDD (major depressive disorder), recurrent episode, moderate: Status: Acute Code(s): F33.1 - Major depressive disorder, recurrent, moderate (2) Post traumatic stress disorder (PTSD): Status: Acute Code(s): F43.10 - Post-traumatic stress disorder, unspecified (3) Cocaine use disorder: Status: Acute Code(s): F14.10 - Cocaine abuse, uncomplicated Plan Patient is a 54-year-old male with history PTSD, ADHD, depression, crack cocaine use disorder, history of incarceration self presents for worsening depression in the face of relapse. Patient reports that he himself ask the court for section 35 and about a week ago completed 45 days there during which time he was started on Wellbutrin and Remeron and felt he was doing well. On discharge however patient ended up returning to the same set of circumstances, homeless, around the same individuals and immediately relapsed and has been using crack cocaine for the past 5 days. Patient reports that while abusing substances, he started seeing things and hearing things that were not there which scared him. Pt became overwhelmed with shame for relapsing, missing his kids and his ; his depression worsened and started wishing he were so self presented. Patient very much wants to get back on Wellbutrin and Remeron; although he does not abuse opiates, patient also found Suboxone helpful for cocaine cravings. Patient denies alcohol use; endorses long history of trauma, from [facility] in [facility]. Unable to discern history of manic episodes given long history of cocaine abuse. Formulation/clinical reasoning: Patient reports depression was well treated when on Wellbutrin and Remeron and wants to get back on it; also found Suboxone hopeful for cocaine cravings. Patient is very adamant about getting help to get into a substance abuse program and has already reached out on his own to programs. Hospital course: doing better back on meds; very much wants help w/ substance abuse program 08/26 Patient remains doing well. Says good mood, anxiety under good control. Discussed plans and he very much wants to get into a substance abuse program. Patient remains in good behavioral and impulse control and appropriate with peers and staff. He is engaged in treatment, attending groups and open in discussions pt stable on current medication regimen; engaged in treatment, gets along well with peers and in good behavioral and impulse control Plan: CV Q 15 minute checks Wellbutrin XL 300 mg Remeron 30 mg Clonidine as a p.r.n. Suboxone 8/2 mg daily Patient educated on: diagnosis and therapeutic strategies Informed Consent: understands Reason for continued inpatient stay Substantial Risk for: stable for discharge Time Spent With Patient Time: Total time managing care of this patient today ____ minutes.
[2024-08-26 20:00] VITALS: RESP 16
[2024-08-26] MEDS: Atorvastatin Calcium 10 MG TABLET PO (20:44)
[2024-08-26] MEDS: Mirtazapine 30 MG TABLET PO (20:44)
[2024-08-27 08:24] VITALS: BP 121/80; PULSE 92; RESP 16; TEMP 36.7; O2SAT 98
[2024-08-27] MEDS: lisinopriL 10 MG TABLET PO (08:39)
[2024-08-27] MEDS: buPROPion HCl XL 300 MG TAB.ER.24H PO (08:39)
[2024-08-27] MEDS: Thiamine HCL 100 MG TABLET PO (08:39)
[2024-08-27] MEDS: Omeprazole 20 MG CAPSULE.DR PO (08:39)
[2024-08-27] MEDS: Folic Acid 1 MG TABLET PO (08:39)
[2024-08-27] MEDS: Buprenorphine/Naloxone 8/2 mg TAB.SUBL 1 TAB SUBLINGUAL (08:40)
[2024-08-27] MEDS: Nicotine 21 MG PATCH.TD24 TRANSDERMA (08:52)
[2024-08-27] MEDS: Nicotine Polacrilex 2 MG GUM 4 MG BUCCAL ×3 (08:53→17:42)
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
[2024-08-27] MEDS: Gabapentin 300 MG CAPSULE PO ×2 (15:20→20:53)
[2024-08-27 20:00] VITALS: BP 122/76; PULSE 86; RESP 16; TEMP 36.7; O2SAT 98
[2024-08-27] MEDS: Mirtazapine 30 MG TABLET PO (20:53)
[2024-08-27] MEDS: traZODone HCL 50 MG TABLET PO (20:53)
[2024-08-27] MEDS: Atorvastatin Calcium 10 MG TABLET PO (20:53)
[2024-08-28] MEDS: Nicotine Polacrilex 2 MG GUM 4 MG BUCCAL ×2 (08:07→10:59)
[2024-08-28] MEDS: Thiamine HCL 100 MG TABLET PO (08:07)
[2024-08-28] MEDS: Gabapentin 300 MG CAPSULE PO ×3 (08:07→20:55)
[2024-08-28] MEDS: buPROPion HCl XL 300 MG TAB.ER.24H PO (08:07)
[2024-08-28] MEDS: lisinopriL 10 MG TABLET PO (08:07)
[2024-08-28] MEDS: Omeprazole 20 MG CAPSULE.DR PO (08:07)
[2024-08-28 08:09] VITALS: BP 128/79; PULSE 89; RESP 18; TEMP 36.4; O2SAT 97
[2024-08-28 08:18] VITALS: BMI 33.7
[2024-08-28] MEDS: Buprenorphine/Naloxone 8/2 mg TAB.SUBL 1 TAB SUBLINGUAL (08:38)
[2024-08-28] MEDS: Folic Acid 1 MG TABLET PO (08:42)
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
[2024-08-28] MEDS: Nicotine 21 MG PATCH.TD24 TRANSDERMA (11:00)
[2024-08-28] MEDS: Nicotine Polacrilex Lozenge 4 MG LOZENGE BUCCAL ×2 (14:27→21:00)
[2024-08-28 19:59] VITALS: BP 112/74; PULSE 104; RESP 15; TEMP 36.4; O2SAT 95
[2024-08-28] MEDS: Mirtazapine 30 MG TABLET PO (20:55)
[2024-08-28] MEDS: traZODone HCL 50 MG TABLET PO (20:55)
[2024-08-28] MEDS: Atorvastatin Calcium 10 MG TABLET PO (20:55)
[2024-08-29] MEDS: Omeprazole 20 MG CAPSULE.DR PO (06:44)
[2024-08-29 07:52] VITALS: BP 109/70; PULSE 77; RESP 16; TEMP 36.4; O2SAT 97
[2024-08-29 08:39] VITALS: BP 107/70
[2024-08-29] MEDS: lisinopriL 10 MG TABLET PO (08:39)
[2024-08-29] MEDS: Folic Acid 1 MG TABLET PO (08:39)
[2024-08-29] MEDS: buPROPion HCl XL 300 MG TAB.ER.24H PO (08:39)
[2024-08-29] MEDS: Thiamine HCL 100 MG TABLET PO (08:39)
[2024-08-29] MEDS: Gabapentin 300 MG CAPSULE PO ×3 (08:40→21:44)
[2024-08-29] MEDS: Buprenorphine/Naloxone 8/2 mg TAB.SUBL 1 TAB SUBLINGUAL (08:40)
[2024-08-29] MEDS: Nicotine Polacrilex Lozenge 4 MG LOZENGE BUCCAL ×3 (09:05→14:37)
[2024-08-29] MEDS: Nicotine 21 MG PATCH.TD24 TRANSDERMA (09:05)
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
[2024-08-29] MEDS: Nicotine Polacrilex 2 MG GUM 4 MG BUCCAL (17:50)
[2024-08-29 20:00] VITALS: BP 160/89; PULSE 102; TEMP 36.6; O2SAT 102
[2024-08-29] MEDS: Mirtazapine 15 MG TABLET 45 MG PO (21:43)
[2024-08-29 21:44] VITALS: BP 160/84
[2024-08-29] MEDS: Atorvastatin Calcium 10 MG TABLET PO (21:44)
[2024-08-29] MEDS: cloNIDine HCL 0.1 MG TABLET PO (21:44)
[2024-08-30] MEDS: Omeprazole 20 MG CAPSULE.DR PO (07:01)
[2024-08-30 08:00] VITALS: BP 133/68; PULSE 97; RESP 16; TEMP 36.2; O2SAT 99
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
[2024-08-30] MEDS: Buprenorphine/Naloxone 8/2 mg TAB.SUBL 1 TAB SUBLINGUAL (08:46)
[2024-08-30] MEDS: buPROPion HCl XL 300 MG TAB.ER.24H PO (08:46)
[2024-08-30] MEDS: Thiamine HCL 100 MG TABLET PO (08:46)
[2024-08-30] MEDS: Nicotine 21 MG PATCH.TD24 TRANSDERMA (08:46)
[2024-08-30] MEDS: Folic Acid 1 MG TABLET PO (08:46)
[2024-08-30] MEDS: Gabapentin 300 MG CAPSULE PO ×3 (08:46→21:10)
[2024-08-30 08:47] VITALS: BP 133/68
[2024-08-30] MEDS: lisinopriL 10 MG TABLET PO (08:47)
[2024-08-30] MEDS: Nicotine Polacrilex 2 MG GUM 4 MG BUCCAL (13:42)
[2024-08-30 19:54] VITALS: BP 135/75; PULSE 93; RESP 15; TEMP 37.1; O2SAT 98
[2024-08-30] MEDS: Atorvastatin Calcium 10 MG TABLET PO (21:10)
[2024-08-30] MEDS: Mirtazapine 15 MG TABLET 45 MG PO (21:10)
[2024-08-30] MEDS: cloNIDine HCL 0.1 MG TABLET PO (21:10)
[2024-08-31] MEDS: Omeprazole 20 MG CAPSULE.DR PO (06:43)
[2024-08-31 08:00] VITALS: BP 122/82; PULSE 86; RESP 18; TEMP 36.2; O2SAT 96
[2024-08-31] MEDS: Thiamine HCL 100 MG TABLET PO (08:34)
[2024-08-31] MEDS: Gabapentin 300 MG CAPSULE PO ×3 (08:34→20:34)
[2024-08-31] MEDS: lisinopriL 10 MG TABLET PO (08:34)
[2024-08-31] MEDS: Buprenorphine/Naloxone 8/2 mg TAB.SUBL 1 TAB SUBLINGUAL (08:35)
[2024-08-31] MEDS: Folic Acid 1 MG TABLET PO (08:35)
[2024-08-31] MEDS: Nicotine 21 MG PATCH.TD24 TRANSDERMA (08:36)
[2024-08-31] MEDS: buPROPion HCl XL 300 MG TAB.ER.24H PO (08:37)
[2024-08-31] MEDS: Nicotine Polacrilex 2 MG GUM 4 MG BUCCAL ×3 (08:40→18:46)
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
[2024-08-31 18:49] VITALS: BP 130/90
[2024-08-31] MEDS: cloNIDine HCL 0.1 MG TABLET PO (18:49)
[2024-08-31 19:42] VITALS: BP 130/90; PULSE 94; RESP 15; TEMP 36.8; O2SAT 97
[2024-08-31] MEDS: Mirtazapine 15 MG TABLET 45 MG PO (20:34)
[2024-08-31] MEDS: Atorvastatin Calcium 10 MG TABLET PO (20:34)
[2024-09-01] MEDS: Omeprazole 20 MG CAPSULE.DR PO (07:02)
[2024-09-01 08:00] VITALS: BP 124/82; PULSE 84; RESP 18; TEMP 36.6; O2SAT 98
[2024-09-01] MEDS: Nicotine 21 MG PATCH.TD24 TRANSDERMA (08:10)
[2024-09-01] MEDS: Folic Acid 1 MG TABLET PO (08:11)
[2024-09-01] MEDS: Buprenorphine/Naloxone 8/2 mg TAB.SUBL 1 TAB SUBLINGUAL (08:11)
[2024-09-01 08:12] VITALS: BP 124/84
[2024-09-01] MEDS: buPROPion HCl XL 300 MG TAB.ER.24H PO (08:12)
[2024-09-01] MEDS: lisinopriL 10 MG TABLET PO (08:12)
[2024-09-01] MEDS: Thiamine HCL 100 MG TABLET PO (08:12)
[2024-09-01] MEDS: Gabapentin 300 MG CAPSULE PO ×3 (08:12→20:36)
[2024-09-01] MEDS: Nicotine Polacrilex 2 MG GUM 4 MG BUCCAL ×5 (08:14→19:25)
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
[2024-09-01 20:00] VITALS: BP 114/68; PULSE 106; TEMP 36.4; O2SAT 97
[2024-09-01] MEDS: Atorvastatin Calcium 10 MG TABLET PO (20:35)
[2024-09-01] MEDS: Mirtazapine 15 MG TABLET 45 MG PO (20:36)
[2024-09-01] MEDS: traZODone HCL 50 MG TABLET PO (22:33)
[2024-09-02] MEDS: Omeprazole 20 MG CAPSULE.DR PO (07:10)
[2024-09-02 09:01] VITALS: BP 144/93; PULSE 104; RESP 18; TEMP 36.1; O2SAT 98
[2024-09-02] MEDS: lisinopriL 10 MG TABLET PO (09:02)
[2024-09-02] MEDS: buPROPion HCl XL 300 MG TAB.ER.24H PO (09:02)
[2024-09-02] MEDS: Folic Acid 1 MG TABLET PO (09:02)
[2024-09-02] MEDS: Buprenorphine/Naloxone 8/2 mg TAB.SUBL 1 TAB SUBLINGUAL (09:02)
[2024-09-02] MEDS: Gabapentin 300 MG CAPSULE PO (09:02)
[2024-09-02] MEDS: Thiamine HCL 100 MG TABLET PO (09:03)
[2024-09-02] MEDS: Naloxone HCl Nasal TAKE HOME 4 MG SPRAY 8 MG NOSTRILALT (09:03)
[2024-09-02] MEDS: Nicotine 21 MG PATCH.TD24 TRANSDERMA (09:05)
[2024-09-02] MEDS: Nicotine Polacrilex 2 MG GUM 4 MG BUCCAL ×2 (09:07→12:09)
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
== END 2024-09-02 13:28 | disposition home or self-care (01) | DRG 751 ==
LOC: HO.ED 08-21 02:00 → HO.PM5 08-21 17:59
PROVIDERS: Admitting Provider Psychiatry & Neurology Psychiatry; Emergency Provider Emergency Medicine; Visit Provider Psychiatry & Neurology Psychiatry
DX: F33.2 Major depressive disorder, recurrent severe without psychotic features (principal); F11.20 Opioid dependence, uncomplicated; F14.10 Cocaine abuse, uncomplicated; F17.210 Nicotine dependence, cigarettes, uncomplicated; F43.10 Post-traumatic stress disorder, unspecified; Z71.6 Tobacco abuse counseling; F19.10 Other psychoactive substance abuse, uncomplicated; Z79.899 Other long term (current) drug therapy
CPT/HCPCS: 36415; 80053; 80061; 80307; 81001; 83036; 83690; 85025; 93005; 97161; 99285; S9485

== ENCOUNTER → 2024-08-21 09:44 | Outpatient (BNV) | payer OTHER, SELFPAY | PROVIDERS: Emergency Provider Emergency Medicine; Visit Provider Internal Medicine Cardiovascular Disease | DX: I45.10 Unspecified right bundle-branch block (principal) | CPT/HCPCS: 93010 ==

== ENCOUNTER → 2024-08-21 17:45 | Outpatient (BNV) | payer OTHER, SELFPAY | PROVIDERS: Admitting Provider Psychiatry & Neurology Psychiatry; Emergency Provider Emergency Medicine; Visit Provider Psychiatry & Neurology Psychiatry | DX: F33.1 Major depressive disorder, recurrent, moderate (principal); F14.10 Cocaine abuse, uncomplicated; F43.11 Post-traumatic stress disorder, acute | CPT/HCPCS: 90792; 99231; 99232 ==

== ENCOUNTER 2024-09-09 20:44 | Emergency (ER) | payer SELFPAY ==
[2024-09-09 21:01] VITALS: BP 122/76; BP 147/73; PULSE 89; PULSE 95; RESP 18; TEMP 36.8; O2SAT 95; BMI 27.4
--- NOTE | 2024-09-09 21:05 | ED.PSYCH ---
HPI - Psych General Chief Complaint: Psychiatric Symptoms Stated Complaint: drug use, hallucinations Time Seen by Provider: 09/09/24 21:02 Source: patient and EMS Mode of arrival: EMS Limitations: no limitations History of Present Illness ED Provider: Rossy Medellin NP HPI Narrative: Patient is a 54-year-old male who presents emergency department via EMS for evaluation. He had been found on the sidewalk, not certain whether bystanders had contacted EMS. He was not in an overdose state did not require any Narcan. He endorses use of polysubstance as though he does not endorse what he use specifically. He states he has been ?smoking all of the drugs . He admits that he has been depressed recently but denies SI/HI. He reports myself that he did not take his routine medications yesterday or today, he does not provide specific reasoning as to why he did not take them. He endorsed a nursing staff having hallucinations but denies this to me. On his arrival to emergency department he requested to take a shower which he did. When asked how we can best help him today whether he was interested in assistance with detox patient rubs his shoulders and says maybe. He offers no physical complaints in his physical examination is benign Related Data Home Medications ?Medication ?Instructions ?Recorded ?Confirmed albuterol sulfate 90 mcg/actuation 2 inh inhalation Q4-6H PRN 08/21/24 08/21/24 breath activated powder inhaler Shortness Of Breath Or Wheezing simvastatin 20 mg tablet 20 mg PO BEDTIME 08/21/24 08/21/24 Previous Rx's ?Medication ?Instructions ?Recorded lisinopril 10 mg tablet 10 mg PO DAILY 30 days #30 tabs 02/01/23 buprenorphine 8 mg-naloxone 2 mg 1 tab sublingual DAILY 8 days #8 09/01/24 sublingual tablet tabs bupropion HCl 300 mg 24 hr tablet, 300 mg PO QAM 30 days #30 tabs 09/01/24 extended release clonidine HCl 0.1 mg tablet 0.1 mg PO Q4H PRN moderate anxiety 09/01/24 30 days #90 tabs gabapentin 300 mg capsule 300 mg PO TID 30 days #90 caps 09/01/24 leg brace #1 ea 09/01/24 mirtazapine 45 mg tablet 45 mg PO BEDTIME 30 days #30 tabs 09/01/24 nicotine (polacrilex) 4 mg gum 4 mg buccal Q2H PRN nicotine 09/01/24 cravings 30 days #100 ea nicotine 21 mg/24 hr daily 21 mg transdermal DAILY PRN 09/01/24 transdermal patch smoking cessation 28 days #28 ea Allergies Allergy/AdvReac Type Severity Reaction Status Date / Time No Known Allergies Allergy Verified 09/09/24 21:05 [No Known Allergies*] Review of Systems Review of Systems: Yes all other systems are reviewed and are negative PMFSH Past Medical History Attestation statement: The following information was validated with the patient. Source: old records reviewed Medical History Recurrent right knee instability TBI (traumatic brain injury) HTN (hypertension) HLD (hyperlipidemia) Cocaine abuse PTSD (post-traumatic stress disorder) Depression Family History Family History Father Colon cancer, Onset Age: 60 Paternal Grandfather Colon cancer Social History Social History Household Members: Spouse Housing: House Do you presently have visiting nurse or other home services: No Alcohol intake: current Alcohol intake frequency: holidays/special occasions only Patient Tobacco Use Status: Current everyday Tobacco user Tobacco use type: Cigarette Cigarette Packs Per Day: 0.5 Cigarettes Per Day: 10 e-Cigarette/Vaping Use: Never Used Second Hand Smoke Exposure: Yes Substance Use Type: Crack/Cocaine Advance Directives: No Advance Directives Information Provided: No Do you have a plan to hurt others: No Plan service: No Sexual orientation: Straight/Heterosexual Physical Exam Vital Signs: Vital Signs: Last Vital Signs Temp 98.6 F 09/09/24 22:25 Pulse 80 09/09/24 22:25 Resp 18 09/09/24 22:25 BP 128/78 09/09/24 22:25 Pulse Ox 99 09/09/24 22:25 O2 Del Method Room Air 09/09/24 22:25 BMI result Body Mass Index 27.4 Appearance: Alert.?Oriented to person, place and time. No acute distress.?Normal affect. Eyes: Pupils equal, round and reactive to light.? ENT: Pharynx normal.?? Neck: Normal inspection.? Neck supple.?? CVS: Heart sounds normal. Normal heart rate and rhythm.? Pulses normal.?? Respiratory: No respiratory distress.? Lung sounds clear to auscultation bilaterally?? Abdomen: Soft and non-tender. Normoactive bowel sounds. Skin: Skin warm and dry.? Normal skin color.? Extremities: No lower extremity edema.? Neuro: Moves all extremities spontaneously. Sensation intact bilaterally. CN II-XII intact. No focal neuro deficits. Ambulates with normal steady gait. Course Reevaluation(s) Reevaluation #1: Patient after showering when speaking with myself, made a phone call to a friend, requesting friend to pick him up from the emergency department. Declining interest in any assistance at this time. Given he denied any SI/HI, no reason to hold him in the emergency department. He does not appear to be under any cognitive impairment with his endorse substance usage. Being discharged at his request Time: 22:09 Medical Decision Making Medical Decision Making MDM Narrative: Patient is a 54-year-old male who presents emergency department endorsement of polysubstance use though not endorsing he has he specifically. He is conscious alert and oriented x4. He is speaking clear full sentences. He is answering questions appropriately. Vague answering surrounding whether he has interest in detox. Denies SI/HI. Will obtain serum labs for medical clearance and determine whether he wishes to speak with care team regarding his ongoing depression, or addiction medicine for his polysubstance use. Differential Diagnosis Differential Diagnoses: The differential diagnosis associated with the presentation includes (See narrative above and below for further detail) Consult Healthcare Provider Management of the patient was discussed with: Behavioral Health Provider (CARE team) Lab Data 09/09/24 22:02 09/09/24 22:02 Labs: Lab Results 09/09/24 09/09/24 Range/Units 22:02 22:03 WBC 9.7 (4.8-10.8) X10*3/uL RBC 4.82 (4.60-5.80) X10*6/uL Hgb 13.6 L (14.0-18.0) g/dl Hct 38.9 L (42.0-52.0) % MCV 80.7 (80.0-98.0) fL MCH 28.2 (27.0-33.0) pg MCHC 35.0 (31.0-36.0) g/dl RDW 14.6 (11.0-16.0) % Plt Count 269 (160-400) X10*3/uL MPV 10.5 (9.4-12.4) fL Immature Gran % (Auto) 0.3 (0.0-0.4) % Neut % (Auto) 53.3 (45-73) % Lymph % (Auto) 37.7 (20-40) % [place] % (Auto) 4.9 (2-11) % Eos % (Auto) 3.3 (0-4) % Baso % (Auto) 0.5 (0-2) % Lymph # (Auto) 3.7 (1.2-4.9) X10*3/uL [place] # (Auto) 0.5 (0.1-1.2) X10*3/uL Eos # (Auto) 0.3 (0.0-0.4) X10*3/uL Baso # (Auto) 0.1 (0.0-0.2) X10*3/uL Abs Immat Gran (auto) 0.03 (0.00-0.03) X10*3/uL Absolute Neuts (auto) 5.2 (2.0-8.3) x10*3/uL Absolute Nucleated RBC 0.000 (0.0-0.012) X10*3/uL Nucleated RBC % (auto) 0.0 (0.0-0.2) /100WBC Sodium 139 (135-145) mmol/L Potassium 3.5 D (3.3-5.1) mmol/L Chloride 107 (96-108) mmol/L Carbon Dioxide 23 (22-29) mmol/L Anion Gap 13 (12-20) BUN 14 (9-16) mg/dL Creatinine 1.04 (0.5-1.4) mg/dL Estim Creat Clear Calc 81.2 Estimated GFR > 60 Random Glucose 94 (60-115) mg/dL Calcium 9.3 (8.4-10.2) mg/dL Total Bilirubin 0.7 (0.0-1.0) mg/dL AST 40 H (5-37) U/L ALT 25 (0-40) U/L Alkaline Phosphatase 90 (39-117) U/L Total Protein 7.7 (6.5-8.0) g/dL Albumin 4.3 (3.5-5.0) g/dL Urine Color Dark Yellow Urine Appearance Cloudy Urine pH 5.5 (5.0-9.0) Ur Specific [place] >= 1.030 H (1.005-1.025) Urine Protein 30 (1+) H (Neg-Trace) mg/dL Urine Glucose (UA) Negative (Negative) mg/dL Urine Ketones Trace (Negative) mg/dL Urine Blood Negative (Negative) Urine Nitrite Negative (Negative) Ur Leukocyte Esterase Negative (Negative) Urine RBC 0-2 (0-2) /HPF Urine WBC 0-5 (0-5) /HPF Ur Squamous Epith Cells 3-5 (0-2) /HPF Urine Bacteria None Seen (None Seen) Hyaline Casts >20 (0-2) /LPF Granular Casts Present Urine Opiates Screen Not Detected (Not Detect) Ur Buprenorphine Scrn Positive H (Not Detect) ng/mL Ur Oxycodone Screen Not Detected (Not Detect) ng/mL Urine Methadone Screen Not Detected (Not Detect) ng/mL Urine Fentanyl Screen Not Detected (Not Detect) Ur Barbiturates Screen Not Detected (Not Detect) Ur Phencyclidine Scrn Not Detected (Not Detect) Ur Amphetamines Screen Not Detected (Not Detect) U Benzodiazepines Scrn Not Detected (Not Detect) Urine Cocaine Screen POSITIVE H (Not Detect) U Marijuana (THC) Screen Not Detected (Not Detect) Ethyl Alcohol < 10 mg/dL Independent Historian Clinical information obtained from an independent historian. History obtained from or confirmed by: EMS External Record Review External record reviewed: Outpatient record Discharge Plan Discharge Clinical Impression: Polysubstance abuse Patient Disposition: Home, Self-Care Instructions: Polysubstance Abuse (ED) Additional Instructions: Came to the emergency department after being found outdoors, endorsing polysubstance use and admitting to having depression. He remained in the emergency department for about 1-1/2 hours and then requested to leave. If you have any interest in detox please present back to the emergency department or consider follow-up with the [facility]. If you are having any new or worsening symptoms or concerns you may return to emergency department Prescriptions: No Action lisinopril 10 mg tablet 10 mg PO DAILY 30 Days Qty: 30 0RF simvastatin 20 mg Tablet 20 mg PO BEDTIME albuterol sulfate 90 mcg/actuation Aerosol Powdr Breath Activated 2 inh INHALATION Q4-6H PRN (Reason: Shortness Of Breath Or Wheezing) buprenorphine-naloxone 8-2 mg Tablet, Sublingual 1 tab sublingual DAILY 8 Days Qty: 8 0RF gabapentin 300 mg Capsule 300 mg PO TID 30 Days Qty: 90 1RF clonidine HCl 0.1 mg Tablet 0.1 mg PO Q4H PRN (Reason: moderate anxiety) 30 Days Qty: 90 1RF Protocol: Hold for SBP< HOLD for SBP < : 90 nicotine (polacrilex) 4 mg gum 4 mg buccal Q2H PRN (Reason: nicotine cravings) 30 Days Qty: 100 1RF nicotine 21 mg/24 hr Patch 24 Hour 21 mg transdermal DAILY PRN (Reason: smoking cessation) 28 Days Qty: 28 1RF mirtazapine 45 mg tablet 45 mg PO BEDTIME 30 Days Qty: 30 1RF bupropion HCl 300 mg Tablet Extended Release 24 Hr 300 mg PO QAM 30 Days Qty: 30 1RF (DME) leg brace Misc See Rx Instructions .Route Qty: 1 0RF Rx Instructions: right knee; where daily as needed for knee stability Interventions: [place]-Suicide Risk Severity Scale Last Done: 09/09/24 22:24 ED Discharge Assessment Last Done: 09/09/24 22:25 Discharge Date/Time: 09/09/24 22:28 Print Language: Wallisian
--- NOTE | 2024-09-09 21:26 | PC.NURSE ---
reports to feel safe. reports im an addict and monica missed opportunities
[2024-09-09 22:10] LABS: MANUAL DIFF FLAG NO
[2024-09-09 22:11] LABS: Basophils Absolute Auto 0.1 X10*3/uL (0.0-0.2); Basophils Percent Auto 0.5 % (0-2); Eosinophils Absolute Auto 0.3 X10*3/uL (0.0-0.4); Eosinophils Percent Auto 3.3 % (0-4); Hematocrit 38.9 % (42.0-52.0); Hemoglobin 13.6 g/dl (14.0-18.0); Imm Gran Abs Auto 0.03 X10*3/uL (0.00-0.03); Imm Gran Pct Auto 0.3 % (0.0-0.4); Lymphocytes Absolute Auto 3.7 X10*3/uL (1.2-4.9); Lymphocytes Percent Auto 37.7 % (20-40); Mean Corpuscular Hemoglobin 28.2 pg (27.0-33.0); Mean Corpuscular Volume 80.7 fL (80.0-98.0); Mean Platelet Volume 10.5 fL (9.4-12.4); Monocytes Absolute Auto 0.5 X10*3/uL (0.1-1.2); Monocytes Percent Auto 4.9 % (2-11); Neutrophils Absolute Auto 5.2 x10*3/uL (2.0-8.3); Neutrophils Percent Auto 53.3 % (45-73); Platelet Count 269 X10*3/uL (160-400); Red Blood Count 4.82 X10*6/uL (4.60-5.80); Red Cell Distribution Width 14.6 % (11.0-16.0); White Blood Count 9.7 X10*3/uL (4.8-10.8)
[2024-09-09 22:12] LABS: Appearance Urine Cloudy; Color Urine Dark Yellow; Glucose Urine UA Negative (Negative); Leukocyte Esterase Urine Negative (Negative); Nitrite Urine Negative (Negative); PH 5.5 (5.0-9.0); Specific Gravity - Urine >= 1.030 (1.005-1.025); UMIC TRIGGER UACC YES; Urine Blood Negative (Negative); Urine Ketones Trace mg/dL (Negative); Urine Protein 30 (1+) mg/dL (Neg-Trace)
--- NOTE | 2024-09-09 22:23 | PC.NURSE ---
patient rec'd phone calls then made requests to leave. requested this to provider who may be working on d/c presently
[2024-09-09 22:24] LABS: Amphetamine Screen Urine Not Detected (Not Detect); Barbiturates, Urine Not Detected (Not Detect); Benzodiazepines Screen Urine Not Detected (Not Detect); Buprenorphine Scr Positive (Not Detect); Cannabinoid Screen Urine Not Detected (Not Detect); Cocaine Screen Urine POSITIVE (Not Detect); Fentanyl, urine Not Detected (Not Detect); Methadone Screen, Urine Not Detected (Not Detect); Opiate Screen Urine Not Detected (Not Detect); Oxycodone Screen Urine Not Detected (Not Detect); Phencyclidine Screen Urine Not Detected (Not Detect)
[2024-09-09 22:25] VITALS: BP 128/78; PULSE 80; RESP 18; TEMP 37; O2SAT 99
[2024-09-09 22:27] LABS: Alanine Aminotransferase 25 U/L (0-40); Albumin Level 4.3 g/dL (3.5-5.0); Alkaline Phosphatase 90 U/L (39-117); Anion Gap 13 (12-20); Aspartate Amino Transferase 40 U/L (5-37); Bilirubin Total 0.7 mg/dL (0.0-1.0); Blood Urea Nitrogen 14 mg/dL (9-16); Calcium 9.3 mg/dL (8.4-10.2); Carbon Dioxide 23 mmol/L (22-29); Chloride 107 mmol/L (96-108); Creatinine Clr Calc Pharmacy 81.2; Estimated Glomerular Filt Rate > 60; Ethanol < 10 mg/dL; Glucose Random 94 mg/dL (60-115); Potassium 3.5 mmol/L (3.3-5.1); Sodium 139 mmol/L (135-145); Total Protein 7.7 g/dL (6.5-8.0)
[2024-09-09 22:32] LABS: Bacteria Urine None Seen (None Seen); Granular Casts Urine Present; Hyaline Casts Urine >20 /LPF (0-2); RBC Urine 0-2 /HPF (0-2); WBC Urine 0-5 /HPF (0-5)
== END 2024-09-09 22:28 | disposition home or self-care (01) ==
PROVIDERS: Nurse Practitioner Family; Emergency Provider Emergency Medicine
DX: F19.10 Other psychoactive substance abuse, uncomplicated (principal); I10 Essential (primary) hypertension; E78.5 Hyperlipidemia, unspecified; Z87.820 Personal history of traumatic brain injury; Z79.899 Other long term (current) drug therapy
CPT/HCPCS: 36415; 80053; 80307; 81001; 85025; 99283